=== PATIENT | female | born 1990 | race African-American/Black ===

== ENCOUNTER 2019-08-14 14:17 | Emergency (ER) | payer OTHER, SELFPAY ==
[2019-08-14 14:34] VITALS: BP 131/76; PULSE 78; RESP 16; TEMP 36.7; O2SAT 98
--- NOTE | 2019-08-14 14:49 | ED.SKABFB ---
HPI - Skin/Abscess/Foreign Bdy General Chief complaint: Unspecified Stated complaint: Swollen/L/ear/neck Time Seen by Provider: 08/14/19 14:42 Source: patient and RN notes reviewed Mode of arrival: ambulatory Limitations: no limitations History of Present Illness HPI narrative: Patient presents today complaining of a 2-day history of left ear swelling and pain. Reports it started in the upper portion of the external ear and has spread downward. Her pain is spread to the neck as well. She currently rates her pain 5/10 and has been taking Benadryl without relief. Denies fever or known injury to the ear. Related Data Home Medications Medication Instructions Recorded Confirmed albuterol sulfate 2 puff INHALATION QID PRN 08/14/19 08/14/19 Allergies Allergy/AdvReac Type Severity Reaction Status Date / Time tramadol Allergy Unknown Itching Verified 08/14/19 14:40 Review of Systems Review of Systems: Narrative: CONSTITUTIONAL: Denies body aches, fever, chills, or sweats. EYES: Denies visual changes, redness, or discharge. ENT: Denies rhinorrhea, congestion, sore throat. + Left external ear redness, swelling, pain CARDIOVASCULAR: Denies chest pain, palpitations, or edema. RESPIRATORY: Denies cough or dyspnea. GASTROINTESTINAL: Denies abdominal pain, nausea, vomiting, or diarrhea. GENITOURINARY: Denies dysuria or hematuria. SKIN: Denies rash, itching, or wounds. MUSCULOSKELETAL: Denies back pain, joint pain, or myalgia. NEUROLOGIC: Denies headache, numbness, tingling, or weakness. PSYCH: Denies depression or anxiety. [facility] Family History Family History (Updated 02/14/14 @ 07:13 by DOCTOR UNKNOWN) Grandparent Hypertension Cerebrovascular accident Family history of Alzheimer's disease Family history of coronary artery disease Diabetes mellitus Father Hypertension Patient's father is Social History Social History Smoking status: Never smoker Second hand tobacco smoke exposure: No Alcohol intake: current Gender identity (if verbalized by the patient): Female Comments At time of signature, I have reviewed and agree with nursing past medical, surgical, social and family history unless otherwise noted. Please see nursing chart for further information. There is no relevant family history pertinent to the presenting complaint Exam Narrative: Exam Narrative: GENERAL: Well-appearing, well-nourished, and in no acute distress. HEAD: Normocephalic, atraumatic. EYES: EOMI. No redness or drainage. Conjunctivae normal. ENT: Mucous membranes pink and moist. Nares clear. No rhinorrhea. TMs normal bilaterally. Left external ear is mildly erythematous and moderately edematous and is tender to palpation. She has some swelling of the left anterior and posterior cervical chains. No facial swelling noted. Throat normal. Uvula midline. NECK: Normal AROM. Supple. No lymphadenopathy. CHEST: No respiratory distress. EXTREMITIES: Normal range of motion. No edema. SKIN: Warm, dry, no rash. NEURO: No focal deficits. Alert and oriented x3. Gait steady. PSYCH: Normal affect. No signs of depression or anxiety. Course Vital Signs Vital signs: Vital Signs Temperature 98.1 F 08/14/19 14:34 Pulse Rate 78 08/14/19 14:34 Respiratory Rate 16 08/14/19 14:34 Blood Pressure 131/76 08/14/19 14:34 Pulse Oximetry 98 08/14/19 14:34 Temperature 98.1 F 08/14/19 14:34 Pulse Rate 78 08/14/19 14:34 Respiratory Rate 16 08/14/19 14:34 Blood Pressure 131/76 08/14/19 14:34 Pulse Oximetry 98 08/14/19 14:34 Reviewed. Pt has been instructed to follow up with her PCP regarding her elevated blood pressure today. MDM - Skin/Abscess/Foreign Bdy Differential Diagnosis Differential diagnosis: Likely abscess of skin or subcutaneous tissue, cellulitis, eczema, impetigo and contact dermatitis Critical Care Time Critical Care Time Critical Care Time: No Discharge Plan Disch
== END 2019-08-14 14:58 | disposition home or self-care (01) ==
PROVIDERS: Emergency Provider Nurse Practitioner; PCP Family Medicine
DX: H60.12 Cellulitis of left external ear (principal); J45.909 Unspecified asthma, uncomplicated
CPT/HCPCS: 99213; G0463

== ENCOUNTER 2020-01-02 16:00 | Emergency (ER) | payer OTHER, SELFPAY ==
--- NOTE | ~2020-01-02 | XR_ITS ---
XR shoulder RT min 2V DATE: 01/02/2020 16:36 INDICATION: Right shoulder pain TECHNIQUE: Neer and AP views COMPARISON: None FINDINGS: No fracture or dislocation, periosteal reaction or bone destruction or abnormal soft tissue calcification. IMPRESSION: Negative right shoulder Reviewed, dictated and finalized at location A. IMPRESSION: Negative right shoulder
[2020-01-02 16:09] VITALS: BP 127/81; PULSE 124; RESP 16; TEMP 36.5; O2SAT 98
--- NOTE | 2020-01-02 16:12 | ED.GENADULT ---
HPI - General Adult General Chief complaint: Extremity Injury, Upper Stated complaint: Shoulder injury Time Seen by Provider: 01/02/20 16:12 Source: patient and RN notes reviewed Mode of arrival: ambulatory Limitations: no limitations History of Present Illness HPI narrative: 29-year-old -Surinamese female presents with complaints of diffused right shoulder pain and intermittent radiating pain in RT hand for the past 4 days. Lobitorosyn, last on 01/01/20 @ 23:00 with little relief. Kira says she was putting on a shirt when her RT shoulder came out of socket and she put it back. Upon going to bed and rolling onto RT shoulder she felt a movement as if it went further into the socket. History of Unspecified Joint Disorder, received PT in the past. She continues to have pain. Denies numbness or tingling. No known injury. Hurts with movement of shoulder. Intermittent radiating pain to RT hand. No loss of mobility. No swelling. Exacerbating factor is movement. Some relieving factor is rest and pain medication. The dominant hand is the RIGHT HAND. LMP, 12/30/19. Remains active. The patient reports she have not been diagnosed with COVID-19. The patient reports she is not waiting for the results of a COVID-19 lab test. The patient reports she do not have fever, chills, weakness, fatigue, or myalgia. The patient reports she do not have a new or worsening cough or shortness of breath. Denies chest pain. The patient reports she do not have any rhinorrhea, congestion, sore throat, nausea, vomiting, abdominal pain, and diarrhea. Tolerating po intake well. Denies recent traveling. Denies concerns for COVID-19 or exposures been home with limited outdoor exposure except for essential household needs and return home. At this time, patient is not suspected of having COVID-19. Some parts of this dictation were generated by voice recognition software and may contain typographical and/or grammatical inaccuracies. Related Data Home Medications Medication Instructions Recorded Confirmed albuterol sulfate [Proventil HFA] 2 puff INHALATION Q4-6H PRN 01/02/20 01/02/20 Allergies Allergy/AdvReac Type Severity Reaction Status Date / Time tramadol Allergy Unknown Itching Verified 01/02/20 16:01 Review of Systems Review of Systems: Narrative: CONSTITUTIONAL: Denies fever, chills, sweats. EYES: Denies visual changes, redness, discharge. ENT: Denies rhinorrhea, congestion, sore throat, otalgia. CARDIOVASCULAR: Denies chest pain, palpitations, edema. RESPIRATORY: Denies dyspnea, wheezing, cough. GASTROINTESTINAL: Denies abdominal pain, nausea, vomiting, diarrhea. GENITOURINARY: Denies dysuria, hematuria, abnormal discharge. SKIN: Denies rash or itching. MUSCULOSKELETAL: Denies acute back pain or myalgia. Complains of diffused right shoulder pain and intermittent pain in RT hand. NEUROLOGIC: Denies numbness or focal weakness. PSYCHIATRIC: Denies anxiety or depression. All other systems reviewed & are unremarkable except as noted in HPI and below. [facility] Past Medical History Medical History (Updated 01/02/20 @ 16:48 by GARETH Castillo) Asthma Joint disorder, unspecified Surgical History Surgical History (Updated 01/02/20 @ 16:37 by GARETH Castillo) No significant past surgical history Family History Family History Grandparent Hypertension Cerebrovascular accident Family history of Alzheimer's disease Family history of coronary artery disease Diabetes mellitus Father Hypertension Patient's father is Social History Social History (Updated 01/02/20 @ 16:38 by GARETH Castillo) Smoking status: Never smoker Second hand tobacco smoke exposure: No Alcohol intake: current Substance use: current Substance use type: marijuana Living arrangements: with family Occupation/Education: unemployed Gender identity (if verbal
[2020-01-02] MEDS: KETOROLAC (*BKC) 60 MG/2 ML VIAL IM (16:22)
== END 2020-01-02 16:55 | disposition home or self-care (01) ==
PROVIDERS: Emergency Provider Nurse Practitioner Family
DX: M25.511 Pain in right shoulder (principal); J45.909 Unspecified asthma, uncomplicated; M25.9 Joint disorder, unspecified
CPT/HCPCS: 73030; 96372; 99213; G0463; J1885

== ENCOUNTER 2021-12-29 15:45 | Emergency (ER) | payer OTHER, MEDICAID, SELFPAY ==
--- NOTE | ~2021-12-29 | XR_ITS ---
EXAMINATION: XR chest 2V 12/29/2021 17:15 INDICATION: Weakness and dyspnea PROCEDURE: PA and lateral views the chest COMPARISON: Comparison to multiple prior studies sequentially, with oldest reviewed study dated 03/22. FINDINGS: The lungs are clear. The cardiomediastinal silhouette is within normal limits. There are no pleural effusions. There is no pneumothorax suspected. IMPRESSION: 1: NO ACUTE CARDIOPULMONARY DISEASE. Reviewed, dictated and finalized at location A.
[2021-12-29 15:48] VITALS: BP 143/100; PULSE 83; RESP 18; TEMP 36.7; O2SAT 99
[2021-12-29 16:13] LABS: Basophils Percent Auto 0.5 % (0.2-1.2); Eosinophils Absolute Auto 0.1 K/mm3 (0-0.3); Eosinophils Percent Auto 1.4 % (0-4.4); Hematocrit 37.3 % (37.0-47.0); Hemoglobin 11.6 g/dL (12.0-15.0); Immature Granulocyte Absolute 0.02 K/mm3 (0.00-0.031); Immature Granulocyte Percent A 0.3 % (0-0.5); Lymphocytes Percent Auto 40.7 % (18.3-44.2); Mean Corpuscular HGB Conc 31.1 g/dl (32-36); Mean Corpuscular Hemoglobin 26.1 pg (26-34); Mean Corpuscular Volume 83.8 fl (80-100); Mean Platelet Volume 10.6 fl (7.4-10.4); Monocytes Absolute Auto 0.5 K/mm3 (0.1-0.6); Neutrophils Absolute Auto 2.9 K/mm3 (1.3-6.7); Neutrophils Percent Auto 49.1 % (45.5-73.1); Platelet Count Result 344 k/mm3 (150-375); Red Blood Count 4.45 M/mm3 (4.2-5.4); Red Cell Distribution Width 14.6 % (11.5-14.5); White Blood Count 5.9 K/mm3 (4.5-10.0)
[2021-12-29 16:23] LABS: Alanine Aminotransferase 18 U/L (6-35); Albumin Level 3.9 g/dL (3.5-5.1); Alkaline Phosphatase 73 U/L (38-126); Anion Gap 4 mmol/L (8-16); Aspartate Amino Transferase 19 U/L (14-36); Bilirubin,Total 0.1 mg/dL (0.2-1.3); Blood Urea Nitrogen 12 mg/dL (7-17); Calcium 8.6 mg/dL (8.4-10.2); Carbon Dioxide 24 mmol/L (22-30); Chloride 107 mmol/L (98-107); Estimated CRCL calculation 129 ml/min; Estimated Glomerular Filt Rate > 60; Glucose 102 mg/dL (65-110); Potassium 3.9 mmol/L (3.4-5.0); Sodium 135 mmol/L (137-145)
[2021-12-29 16:46] VITALS: BP 135/92; PULSE 86; O2SAT 100
--- NOTE | 2021-12-29 17:04 | ECG_ITS ---
Measurements Intervals [place] Rate: 70 P: 46 CT: 137 QRS: -4 QRSD: 75 T: 11 QT: 379 QTc: 410 Interpretive Statements SINUS RHYTHM WITH SINUS ARRHYTHMIA CONSIDER INFERIOR INFARCT, AGE INDETERMINATE BASELINE ARTIFACT- I, III, AVL ABNORMAL ECG Electronically Signed On 12-29-2021 21:24:02 CDT by Bacilio Wood D.O.
--- NOTE | 2021-12-29 17:08 | ED.WEAKNESS ---
HPI - Weakness General Chief complaint: Weakness Stated complaint: increased weakness and lethargy Time Seen by Provider: 12/29/21 16:45 Source: patient Mode of arrival: ambulatory Limitations: no limitations History of Present Illness HPI Narrative: This is a 31 year old female who presents for evaluation of fatigue. PAtient states she has been having fatigue for 3-4 weeks. She reports her symptoms occur every day to every other day. She is unsure if it is worse during certain part of the day . She states she feel weird . She feels tired and she feels restless as well. She is able to walk. She denies dizziness. She denies chest pain or sob. She does report intermittent palpitations. She also reports her menstrual cycle has been irregular recently but she does have diagnosis of endometriosis and PCOS. She denies head injury. She denies any new medications. Related Data Home Medications Medication Instructions Recorded Confirmed albuterol sulfate 90 mcg/actuation 2 puff inhalation Q4-6H PRN 01/02/20 01/02/20 aerosol inhaler (Proventil HFA) Shortness Of Breath Allergies Allergy/AdvReac Type Severity Reaction Status Date / Time tramadol Allergy Unknown Itching Verified 01/02/20 16:01 Review of Systems Review of Systems: All systems reviewed & are unremarkable except as noted in HPI and below Constitutional: Constitutional: Denies chills, Reports fatigue, Denies fever(s), Reports lethargy, Reports weakness, Denies weight gain and Denies weight loss Eyes: Eyes: Denies change in vision and Denies photophobia ENT: Denies epistaxis and Denies nasal congestion Cardiovascular: Cardiovascular: Denies chest pain, Reports rapid heart rate and Denies radiating jaw, neck or arm pain Respiratory: Respiratory: Denies chest congestion and Denies cough Gastrointestinal: Gastrointestinal: Reports abdominal pain (chronc), Denies nausea and Denies vomiting Genitourinary: Genitourinary: Reports abnormal vaginal bleeding Musculoskeletal: Musculoskeletal: Denies back pain and Denies myalgias Neurologic: Denies dizziness, Denies syncope and Denies focal weakness PMFSH Past Medical History Medical History Asthma Joint disorder, unspecified Surgical History Surgical History No significant past surgical history Family History Family History Grandparent Hypertension Cerebrovascular accident Family history of Alzheimer's disease Family history of coronary artery disease Diabetes mellitus Father Hypertension Patient's father is Social History Social History (Updated 01/02/20 @ 16:38 by GARETH Castillo) Smoking status: Never smoker Second hand tobacco smoke exposure: No Alcohol intake: current Substance use: current Substance use type: marijuana Gender identity (if verbalized by the patient): Female Sexual Orientation (if Verbalized by the Patient): Straight or Heterosexual Exam Narrative: GENERAL: Well-appearing, well-nourished, and in no acute distress. HEAD: Normocephalic, atraumatic EYES: PERRLA and EOMI, conjunctiva clear without discharge EARS: TM's clear bilaterally without erythema or dullness NOSE: Nares clear, no rhinorrhea or epistaxis THROAT:Mucous membranes moist, Oropharynx normal without erythema, exudate, peritonsillar swelling or fluctuance NECK: Supple, without lymphadenopathy or mass RESPIRATORY: No respiratory distress, Airway patent, Respirations non-labored, Clear to auscultation without rales, rhonchi or wheeze HEART: Regular rate and rhythm. No murmur heard. Normal peripheral pulses. ABDOMEN: Soft, nontender, nondistended, normal active bowel sounds. No masses. No rebound or guarding, No organomegaly. EXTREMITIES: No edema, normal strength with full range of mo
[2021-12-29 17:23] LABS: Appearance Urine Clear (Clear); Bilirubin Urine Negative (Negative); Blood Urine 2+ (Negative); Color Urine Yellow (Yellow); Glucose Urine UA Negative (Negative); Ketones Urine Negative (Negative); Leukocyte Esterase Ur Negative LEU/UL (Negative); Nitrate Urine Negative (Negative); Protein Urine Negative (Negative); Urobilinogen Urine 0.2 mg/dL (<2.0); pH Urine 8.5 (5.0-9.0)
[2021-12-29 17:28] LABS: Add Urine Microscopic? YES; Bacteria Urine Trace /hpf; Mucus Urine Rare /lpf; Squamous Epithelial Cell Urine Few /hpf (Few); WBC Urine 0-3 /hpf
[2021-12-29 17:47] LABS: Magnesium 1.9 mg/dL (1.6-2.3)
[2021-12-29 18:05] LABS: Pregnancy On Board Control Positive; Urine Pregnancy Test Negative
[2021-12-29 18:10] VITALS: BP 129/82
[2021-12-29 18:12] VITALS: BP 146/98
[2021-12-29 18:14] VITALS: BP 136/100
[2021-12-29 18:15] LABS: SARS-CoV-2 RNA PCR Negative
[2021-12-29 19:17] VITALS: BP 143/99; PULSE 79; RESP 16
== END 2021-12-29 19:20 | disposition home or self-care (01) ==
PROVIDERS: Emergency Medicine; Emergency Provider General Practice; PCP Internal Medicine
DX: R53.83 Other fatigue (principal); Z20.822 Contact with and (suspected) exposure to COVID-19; J45.909 Unspecified asthma, uncomplicated
CPT/HCPCS: 36415; 71046; 80053; 81001; 81025; 83735; 84443; 85025; 93005; 99283; C9803; U0003; U0005

== ENCOUNTER 2022-04-27 14:29 | Emergency (ER) | payer OTHER, MEDICAID, SELFPAY ==
[2022-04-27 14:45] VITALS: BP 150/76; PULSE 99; RESP 16; TEMP 36.3; O2SAT 100
--- NOTE | 2022-04-27 15:13 | ED.URI ---
HPI - URI/Sore Throat General Chief Complaint: Upper Respiratory Infection Stated Complaint: Sore Throat, Leg Pain on Both Time Seen by Provider: 04/27/22 15:14 Source: patient, RN notes reviewed and old records reviewed Mode of arrival: ambulatory Limitations: no limitations History of Present Illness HPI Narrative: 32-year-old female comes to the [facility] with complaints of a sore throat for 2-3 days. Patient also complains of bilateral leg discomfort and bruising for at least the last month. States she has tried calling her primary care provider and has not gotten a response. Denies any injury. Walks with a normal gait Denies any fevers, chest pain, abdominal pain. Patient states that she took some Tylenol cold and Sinus 1 time. MD elicited complaint: sore throat Onset (ago): day(s) (2) Consistency: constant Treatments prior to arrival: acetaminophen Related Data Allergies Allergy/AdvReac Type Severity Reaction Status Date / Time tramadol Allergy Unknown Itching Verified 04/27/22 14:56 Review of Systems Review of Systems: All systems reviewed & are unremarkable except as noted in HPI and below Constitutional: Constitutional: Reports no additional constitutional complaints, Denies chills and Denies fever(s) Eyes: Eyes: Reports no additional eye complaints ENT: Reports as per HPI and Reports sore throat Cardiovascular: Cardiovascular: Reports no additional cardiovascular complaints Respiratory: Respiratory: Reports no additional respiratory complaints Gastrointestinal: Gastrointestinal: Reports no additional gastrointestinal complaints Musculoskeletal: Musculoskeletal: Reports as per HPI Integumentary/Breasts: Skin/Breast: Reports system reviewed and no additional complaints, except as docu Neurologic: Reports system reviewed and no additional complaints, except as documented Psychiatric: Psychiatric: Reports no additional psychiatric complaints Allergic/Immunologic: Allergic/Immunologic: Reports no additional allergic/immunologic complaints [facility] Past Medical History Medical History Asthma Joint disorder, unspecified Surgical History Surgical History No significant past surgical history Family History Family History Grandparent Hypertension Cerebrovascular accident Family history of Alzheimer's disease Family history of coronary artery disease Diabetes mellitus Father Hypertension Patient's father is Social History Social History Smoking status: Never smoker Second hand tobacco smoke exposure: No Alcohol intake: current Substance use: current Substance use type: marijuana Gender identity (if verbalized by the patient): Female Sexual Orientation (if Verbalized by the Patient): Straight or Heterosexual Comments At the time of my signature, I reviewed and agree with the nursing past medical, surgical, social, and family history. There is no relevant family history pertinent to the patient complaint. Exam Const: General: healthy appearing, comfortable, no acute distress, well developed, alert and well nourished Nutritional Appearance: well nourished and obese Orientation/consciousness: patient oriented x3 Limitations: no limitations HENMT: Head: normal to inspection Ears: external ears normal, TM's normal bilaterally and EAC's normal Face/Nose/Sinus: Normal external nose present and Normal nares present Face and sinus: normal facial exam Mouth: Yes Normal oral and palatal mucosa present, Yes lip normal and Yes moist mucous membranes Teeth and gingiva: dentition normal Throat: posterior oropharynx normal, tonsils normal, uvula midline, postnasal drainage and no uvular edema Eyes: General: appearance normal, both eyes and all related str
== END 2022-04-27 15:55 | disposition home or self-care (01) ==
PROVIDERS: Emergency Provider Nurse Practitioner; PCP Internal Medicine
DX: J02.9 Acute pharyngitis, unspecified (principal); J45.909 Unspecified asthma, uncomplicated; F12.90 Cannabis use, unspecified, uncomplicated
CPT/HCPCS: 87081; 87880; 99213; G0463

== ENCOUNTER 2022-04-29 18:06 | Emergency (ER) | payer OTHER, MEDICAID, SELFPAY ==
[2022-04-29] VITALS (12 sets, daily range): BP systolic 125–138; BP diastolic 81–86; PULSE 72–102; RESP 11–21; TEMP 37; O2SAT 99–100
[2022-04-29 18:36] LABS: Basophils Percent Auto 0.3 % (0.2-1.2); Eosinophils Absolute Auto 0.1 K/mm3 (0-0.3); Hematocrit 37.5 % (37.0-47.0); Hemoglobin 11.7 g/dL (12.0-15.0); Immature Granulocyte Absolute 0.01 K/mm3 (0.00-0.031); Immature Granulocyte Percent A 0.2 % (0-0.5); Lymphocytes Percent Auto 51.7 % (18.3-44.2); Mean Corpuscular HGB Conc 31.2 g/dl (32-36); Mean Corpuscular Hemoglobin 26.5 pg (26-34); Mean Corpuscular Volume 84.8 fl (80-100); Mean Platelet Volume 11.1 fl (7.4-10.4); Monocytes Absolute Auto 0.5 K/mm3 (0.1-0.6); Monocytes Percent Auto 8.4 % (2.6-8.5); Neutrophils Absolute Auto 2.2 K/mm3 (1.3-6.7); Neutrophils Percent Auto 38.4 % (45.5-73.1); Platelet Count Result 354 k/mm3 (150-375); Red Blood Count 4.42 M/mm3 (4.2-5.4); Red Cell Distribution Width 13.9 % (11.5-14.5); White Blood Count 5.8 K/mm3 (4.5-10.0)
[2022-04-29 18:46] LABS: Anion Gap 10 mmol/L (8-16); Blood Urea Nitrogen 9 mg/dL (7-17); Calcium 8.9 mg/dL (8.4-10.2); Carbon Dioxide 25 mmol/L (22-30); Chloride 103 mmol/L (98-107); Estimated CRCL calculation 154 ml/min; Estimated Glomerular Filt Rate > 60; Glucose 118 mg/dL (65-110); Potassium 3.5 mmol/L (3.4-5.0); Sodium 138 mmol/L (137-145)
[2022-04-29 18:52] LABS: INR 1.1; Partial Thromboplastin Time 30.5 SECONDS (22.3-36.8); Prothrombin Time 13.7 Seconds (11.1-14.7)
[2022-04-29 19:49] LABS: Immature Reticulocyte Fraction 13.6 % (3.0-15.9); Reticulocyte Hemoglobin Conten 30.2 pg (28.2-35.7); Reticulocyte Percent 1.13 % (0.7-4.3); Reticulocytes Absolute 0.05 B/L (32.2-175.7)
[2022-04-29 20:22] LABS: Iron 85 ug/dL (37-170)
--- NOTE | 2022-04-29 20:22 | ED.GENADULT ---
HPI - General Adult General Chief complaint: Unspecified Stated complaint: random bruising Time Seen by Provider: 04/29/22 19:29 History of Present Illness HPI narrative: 32-year-old female history of iron deficiency anemia presents to the emergency room for multiple complaints. Patient states she has been experiencing bilateral lower extremity discomfort for several weeks, taking NSAIDs with no relief of symptoms. Patient also complaining of unexplained painful bruising, noted to her back, lower extremities and upper extremities. Patient denies any known injury or trauma. Patient denies any shortness of breath difficulty breathing, chest pain or abdominal pain. Denies any fevers. No known history of autoimmune disorders in the family. Patient does relate the distant family history of sickle cell. Related Data Allergies Allergy/AdvReac Type Severity Reaction Status Date / Time tramadol Allergy Unknown Itching Verified 04/29/22 18:24 Review of Systems Review of Systems: CONSTITUTIONAL: Denies fever, chills, or sweats. EYES: Denies visual changes, redness, or discharge. ENT: Denies rhinorrhea, congestion, sore throat, or otalgia. CARDIOVASCULAR: Denies chest pain, palpitations, or edema. RESPIRATORY: Denies cough or dyspnea. GASTROINTESTINAL: Denies abdominal pain, nausea, vomiting, or diarrhea. GENITOURINARY: Denies dysuria or hematuria. SKIN: Reports bruising MUSCULOSKELETAL: Lower extremity myalgias NEUROLOGIC: Denies headache, numbness, dizziness, or weakness. PSYCHIATRIC: Denies anxiety or depression. [facility]END[facility] TO [facility] Past Medical History Medical History Asthma Joint disorder, unspecified Surgical History Surgical History No significant past surgical history Family History Family History Grandparent Hypertension Cerebrovascular accident Family history of Alzheimer's disease Family history of coronary artery disease Diabetes mellitus Father Hypertension Patient's father is Social History Social History Smoking status: Never smoker Second hand tobacco smoke exposure: No Alcohol intake: current Substance use: current Substance use type: marijuana Gender identity (if verbalized by the patient): Female Sexual Orientation (if Verbalized by the Patient): Straight or Heterosexual Exam Narrative: GENERAL: Well-appearing, well-nourished, no physical limitations, and in no acute distress. HEAD: Normocephalic, atraumatic. EYES: Conjunctivae normal, PERRLA and EOMI. NECK: Supple. No adenopathy or masses. CHEST: Clear to auscultation. No respiratory distress. No wheezes rales or rhonchi. HEART: Regular rate and rhythm. No murmur heard. Normal peripheral pulses. ABDOMEN: Soft, nontender, nondistended, normal active bowel sounds. BACK: No cervical/thoracic/lumbar tenderness, step-offs, bony abnormality; FROM EXTREMITIES: Normal range of motion. No edema. No clubbing or cyanosis SKIN: Ecchymotic areas noted to the left anterior lower extremity, left upper extremity, mid thoracic back in different sizes shapes. NEURO: No focal deficits. Alert and oriented x3. MAEW. CN's II-XI intact bilaterally, normal gait PSYCH: Cooperative. Normal mood and affect. Course Vital Signs Vital signs: Vital Signs Temperature 37.0 C 04/29/22 18:21 Pulse Rate 102 H 04/29/22 18:21 Respiratory Rate 18 04/29/22 18:21 Blood Pressure 138/86 04/29/22 18:21 Pulse Oximetry 99 04/29/22 18:21 Temperature 37.0 C 04/29/22 18:21 Pulse Rate 102 H 04/29/22 18:21 Respiratory Rate 20 04/29/22 19:32 Blood Pressure 138/86 04/29/22 18:21 Pulse Oximetry 99 04/29/22 18:21 Medical Decision Making Vital Signs Vital Signs: Vital Signs Temperature 37.0 C
[2022-04-29 20:25] LABS: D Dimer 0.28 ug/mL (<0.48)
[2022-04-29 20:31] LABS: Percent Iron Saturation 22 % (20-50)
[2022-04-29 20:45] LABS: CRP < 0.5 mg/dL (<1.0)
[2022-04-29 21:16] LABS: Erythrocyte Sedimentation Rate 17 mm/hr (0-20)
== END 2022-04-29 22:04 | disposition home or self-care (01) ==
PROVIDERS: Emergency Medicine; Emergency Provider Nurse Practitioner Family; PCP Internal Medicine
DX: M79.81 Nontraumatic hematoma of soft tissue (principal); J45.909 Unspecified asthma, uncomplicated; D50.9 Iron deficiency anemia, unspecified
CPT/HCPCS: 36415; 80048; 83540; 83550; 84443; 85025; 85046; 85380; 85610; 85652; 85730; 86140; 99283

== ENCOUNTER 2023-02-11 01:10 | Day surgery (SDC) | payer OTHER, MEDICAID, SELFPAY ==
[2023-02-08 15:18] VITALS: BMI 46.0
--- NOTE | 2023-02-08 15:23 | PC.NURSE ---
Report to the Outpatient Waiting Room, entrance under the green pavilion located off [facility], at time 1000 on date 02/11/23. Planned Procedure Time: 1200. Time changes happen often and if your time is changed the preop area will call you the afternoon before. - You and your visitor will be asked to self-screen and do not enter if you have any COVID symptoms. - A mask is optional within the hospital at this time. Patients may have clear liquids (water, carbonated beverages, clear teas, apple juice) until 3 hours prior to surgery with a maximum of 20 ounces. - No food from midnight until time of surgery Take the following medications with a SIP of water the morning of surgery: INHALER IF NEEDED DO NOT STOP ANY OF YOUR OTHER PRESCRIPTION MEDICATIONS PRIOR TO SURGERY ?EXCEPT THE FOLLOWING Medications to discontinue per physician: VITAMINS/SUPPLEMENTS Date to take last dose: NO MORE UNTIL AFTER SURGERY Please no make-up, nail yoruba, hairspray, perfume, deodorant, or body powder the day of surgery. No jewelry (including any body piercings) or valuables the day of surgery, leave them at home. Please take a shower or bath the night before, or the morning of, surgery with an antibacterial soap. Wear comfortable, loose fitting clothing. - Jewelry must be removed prior to entering the operating room. Rings and piercings that are not removed may be cut off. - The hospital will not accept responsibility for valuables. - Please leave all valuables, including medications, at home the day of surgery. If you are going home after surgery, a licensed water taxi driver must drive you home. - NO public transportation without another adult if you receive anesthesia. - We recommend that an adult stay with you for 24 hours following discharge. - We also recommend that you do not drive, make important decision, drink alcoholic beverages, or take any drugs that were not prescribed by your health care provider for at least 24 hours after your discharge time. Follow any additional instructions given to you from your surgeon. If you or anyone in your household have experienced Covid symptoms in the past week, please notify your surgeon or the nurse liaison at the phone number below for possible testing. Telephone instructions given to PT - ALBA BROOKS and asked if any additional questions and then verbalized understanding. Patient advised to call surgeon office or pre surgery nurse liaison [phone] if any additional questions.
[2023-02-11] VITALS (12 sets, daily range): BP systolic 121–144; BP diastolic 66–102; PULSE 74–99; RESP 8–20; TEMP 36.3; O2SAT 96–100
--- NOTE | 2023-02-11 08:44 | PM.IMHP ---
H&P: HPI History of Present Illness Date/Time: 02/11/23 08:44 Chief Complaint: Suspected endometrial polyp and hydrosalpinx Narrative: Patient with a history of secondary infertility with [facility] evaluation showing possible endometrial polyp on sonohystogram and possible dilated right fallopian tube on HSG. She is scheduled for IVF in the fall and KEN recommends removal of polyp and hydrosalpinx before IVF transfer. She has had preconception MFM consultation due to history of incompetent cervix. Review of Systems Review of Systems: All systems reviewed & are unremarkable except as noted in HPI and below Constitutional: Constitutional: Reports no additional constitutional complaints and Denies headache(s) Eyes: Eyes: Denies spots in vision ENT: Reports system reviewed and no additional complaints, except as documented and Denies headache(s) Cardiovascular: Cardiovascular: Denies chest pain and Denies dyspnea Respiratory: Respiratory: Denies dyspnea Gastrointestinal: Gastrointestinal: Reports no additional gastrointestinal complaints Genitourinary: Genitourinary: Reports amenorrhea Musculoskeletal: Musculoskeletal: Reports no additional musculoskeletal complaints Integumentary/Breasts: Skin/Breast: Denies breast mass and Denies rash Neurologic: Denies headache(s) Psychiatric: Psychiatric: Reports no additional psychiatric complaints PMFSH Past Medical History Medical History Anemia Asthma History of gonorrhea Joint disorder, unspecified Surgical History Surgical History S/P dilation and curettage Family History Family History Grandparent Hypertension Cerebrovascular accident Family history of Alzheimer's disease Family history of coronary artery disease Diabetes mellitus Father Hypertension Patient's father is Other Heart disease Social History Social History Smoking status: Never smoker Second hand tobacco smoke exposure: No Alcohol intake: current Alcohol use details: RARE Substance use: current Substance use type: marijuana Lack of Transportation: No Lack of Food: Never True Current Housing: I Have Housing Concerned About Future Housing: No Difficulty Paying Gas/Electric Bills: No Difficulty Paying for Meds: No Currently Unemployed: No Education: Trade/Vocational Certificate Difficulty w/ Childcare or Family Care: No Living arrangements: with family Occupation/Education: unemployed Gender identity (if verbalized by the patient): Female Sexual Orientation (if Verbalized by the Patient): Straight or Heterosexual Spiritual care concerns: No Meds Home Medications and Allergies Home Medications Medication Instructions Recorded Confirmed Type prenat.vits,mame,xxy-zupr-yynnh 1 tablet PO DAILY 11/11/22 02/08/23 History ferrous sulfate 325 mg (65 mg 325 mg PO DAILY 02/08/23 02/08/23 History iron) tablet (Iron (ferrous sulfate)) Allergies Allergy/AdvReac Type Severity Reaction Status Date / Time tramadol Allergy Unknown Hives Verified 02/08/23 15:17 Exam Const: General: no acute distress Eyes: General: appearance normal, both eyes and all related structures Resp: Effort & Inspection: normal respiratory effort Cardio: Rate: regular rate GI: Other: Gravid no fundal tenderness no right upper quadrant pain Skin: General skin exam: no rashes or lesions noted Neuro: Cognition (Neuro): normal cognition Extrem: General: normal to inspection Psych: Mental Status: mental status grossly normal Assessment and Plan Assessment and plan (1) Endometrial polyp: Code(s): N84.0 - Polyp of corpus uteri Status: Acute Assessment and Plan: Will proceed with hyst
--- NOTE | 2023-02-11 10:12 | WPDHPUPDATE1 ---
History and Physical Update Update Date/Time: 02/11/23 10:12 History and Physical has been reviewed, including an updated exam of the patient. There are NO changes in the patient's condition. Risks, benefits, and alternatives have been discussed and questions answered. Patient agrees to proceed with procedure. Will proceed with diagnostic laparoscopy, chromotubation, possible removal of right or left fallopian tube, diagnositc hysteroscopy possible removal of lesion if present.
--- NOTE | 2023-02-11 10:55 | P.PNAN_ITS ---
Anes - Initial Pre Proc Eval Procedure: Operation Date: 02/11/23 12:00 Proposed Procedures p Diagnostic Laparoscopy with Chromopertubation, Right Salpingectomy, - Huber Rodriguez MD s Hysteroscopy Dilation and Curettage with Removal of Possible Polyp - Huber Rodriguez MD Date/Time: 02/11/23 10:55 Surgeon: Huber Rodriguez MD Pre Op Diagnosis: infertility Patient Data Age: 33 Gender: F Height: 1.56 m Weight: 112.5 kg Allergies Allergy/AdvReac Type Severity Reaction Status Date / Time tramadol Allergy Unknown Hives Verified 02/08/23 15:17 Home Medications Medication Instructions Recorded Confirmed Type prenat.vits,mame,bhe-iuoj-gleao 1 tablet PO DAILY 11/11/22 02/08/23 History ferrous sulfate 325 mg (65 mg 325 mg PO DAILY 02/08/23 02/08/23 History iron) tablet (Iron (ferrous sulfate)) Patient hx anesthesia problems: none Family hx anesthesia problems: none Results Review: All pre-operative results and documents have been reviewed as part of the pre- operative evaluation. [facility], [facility] Past Medical History Medical History Anemia Asthma History of gonorrhea Joint disorder, unspecified Surgical History Surgical History S/P dilation and curettage Family History Family History Grandparent Hypertension Cerebrovascular accident Family history of Alzheimer's disease Family history of coronary artery disease Diabetes mellitus Father Hypertension Patient's father is Other Heart disease Social History Social History Smoking status: Never smoker Second hand tobacco smoke exposure: No Alcohol intake: current Alcohol use details: RARE Substance use: current Substance use type: marijuana Lack of Transportation: No Lack of Food: Never True Current Housing: I Have Housing Concerned About Future Housing: No Difficulty Paying Gas/Electric Bills: No Difficulty Paying for Meds: No Currently Unemployed: No Education: Trade/Vocational Certificate Difficulty w/ Childcare or Family Care: No Living arrangements: with family Occupation/Education: unemployed Gender identity (if verbalized by the patient): Female Sexual Orientation (if Verbalized by the Patient): Straight or Heterosexual Spiritual care concerns: No Anes - Eval Final PreProcedure Day of Procedure 02/11/23 10:55 Patient weight: morbidly obese Heart: regular rate and rhythm Lungs: clear to auscultation Airway: Mallampati scale class 1 Neurological: alert and oriented Last oral intake: >/= 8 hours ASA classification: III Emergent: no Anesthetic plan: proceed Anesthesia type and monitoring: general ETT and standard monitoring Results Review: All pre-operative results and documents have been reviewed as part of the pre- operative evaluation. Informed Consent: The patient's anesthetic plan and its attendant risks and benefits were discussed with the patient/family/POA. Questions were solicited and answers provided to the satisfaction of the patient/family/POA.
[2023-02-11] MEDS: LACTATED RINGERS 1,000 ML 30 ML IV CONT ×2 (11:00→13:16)
[2023-02-11] MEDS: ACETAMINOPHEN 500 MG TABLET 1000 MG PO (11:11)
[2023-02-11] MEDS: KETOROLAC 15 MG/ML VIAL (*BKC) IV PUSH (11:12)
[2023-02-11 11:14] LABS: Hematocrit 39.7 % (37.0-47.0); Hemoglobin 12.5 g/dL (12.0-15.0)
--- NOTE | 2023-02-11 13:19 | PM.OP ---
Procedure Note - Brief Procedure Note - Brief Date of procedure: 02/11/23 infertility, abnormal endometrial cavity, possible hydrosalpinx Post-op diagnosis: Same Procedure performed: Diagnostic laparoscopy Right salpingectomy Removal peritoneal cyst Diagnostic hysteroscopy. Aveta removal of filmy tissue in cavity. Dilation and curretage. Surgeon: Huber Rodriguez MD Estimated blood loss (mL): 5 Pathology: Yes (1. right fallopian tube 2. Peritoneal cyst 3. Endometrial curretings with aveta shavings.) Complications: No immediate complications Condition: Stable Disposition: Same day
[2023-02-11] MEDS: fentaNYL CITRATE INJ (*CRX) 100 MCG/2 ML VIAL 25 MCG IV PUSH ×5 (13:55→14:43)
[2023-02-11] MEDS: ONDANSETRON INJ 4 MG/2 ML VIAL IV PUSH (14:23)
[2023-02-11] MEDS: diphenhydrAMINE HCl INJ 50 MG/ML VIAL 25 MG IV PUSH (14:38)
[2023-02-11] MEDS: oxyCODONE HCL (*CRX) 5 MG TAB IR PO (15:30)
--- NOTE | 2023-02-12 09:31 | P.OP_ITS ---
Procedure Note - Detailed Date of Procedure 02/12/23 Pre-op Diagnosis infertility Abnormal ultrasound of uterine cavity Post-op Diagnosis Same Procedure Performed Diagnostic laparoscopy. Chromotubation. Right salpingectomy. Removal of peritoneal cyst. Diagnostic hysteroscopy. Aveta removal of tissue from uterine cavity. Dilation and curretage. Surgeon Huber Rodriguez MD Anesthesia General Indications Patient with secondary infertility with evaluation showing possible lesion in uterine cavity and blocked right fallopian tube. Findings The uterus normal appearing. Both fallopian tubes mildly tortuous. Both ovaries normal. Flow through left fallopian tube, no flow through right fallopian tube. Multiple thin walled non attached cyst in the cul de sac removed. Appeared consistent with phlegon. Clear fluid noted. The uterus was sound to 9 cm. There was thin proliferative filmy tissue in cavity which was removed with Aveta and underneath was normal appearing proliferative endometrial tissue and normal appearing ostia bilaterally. Moderate amount of proliferative tissue removed at curretage. Description of Procedure After informed consent was obtained she was taken to OR. General endotracheal anesthesia was performed. She was prepped and draped in sterile fashion. Attention was turned to vagina. Speculum inserted. Single tooth tenaculum placed on anterior lip of cervix. [place] uterine manipulator placed into cervical canal. Attention turned to abdomen. Incision made at umbilicus. Marcaine injected subcutaneously prior to incision. Veress needle inserted. Confirmation into abdomen obtained with free flow of fluid and normal peritoneal pressures. A 5 mm port inserted under laparoscopic visualization. She was placed in trendelenburg position. Attention turned to left side of abdomen and port inserted. Approximately 100cc of sterile saline with Methylene blue was injected in tubing in acorn manipulator. Flow was readily seen coming from the end of the left fallopian tube. The tube was mildly tortuous. No flow from the right tube even when occluding the left. It appeared to stop at the interstitial portion of right fallopian tube. The right ligature was then used to remove the right fallopian tube. In the cul de sac there were several free floating fluid filled cyst. They were removed. Clear fluid noted in it as it ruptured when removing through port. She was taken out of trendelenburg. Pneumoperitoneum released. Ports removed. Incision closed with 4.0 vicryl. Attention was turned to the vagina. Manipulator removed. The hysteroscope was inserted and filmy adhesions similar to the cyst adams in cul de sac was visualized. This tissue was removed with the aveta. Once it was removed then normal appearing proliferative tissue was observed. Currettage was performed. Moderate tissue obtained. Tenaculum removed. Hemostasis noted. She was extubated in OR. Sponge count correct. She was taken to recovery room in stable condition. Estimated Blood Loss 5 Drains No Packing No Pathology Yes (Right fallopian tube. 2. Peritoneal cyst wall. 3 Aveta shavings 4. endometrial curretings.) Complications No immediate complications Condition Stable Disposition Same day [facility] Billing Surgery - Charge Forward: Surgery Billing
== END 2023-02-11 16:15 | disposition home or self-care (01) ==
PROVIDERS: Anesthesiology; PCP Internal Medicine; Visit Provider Obstetrics & Gynecology
PROC: (CPT 49320; principal; 2023-02-11 12:00)
PROC: 0U5B8ZZ Destruction of Endometrium, Via Natural or Artificial Opening Endoscopic (ICD-10-PCS; CPT 58563; 2023-02-11 12:00)
DX: N97.1 Female infertility of tubal origin (principal); K66.8 Other specified disorders of peritoneum; N70.11 Chronic salpingitis; D64.9 Anemia, unspecified; Z82.49 Family history of ischemic heart disease and other diseases of the circulatory system; F12.90 Cannabis use, unspecified, uncomplicated; E66.01 Morbid (severe) obesity due to excess calories; Z68.42 Body mass index [BMI] 45.0-49.9, adult
CPT/HCPCS: 58558; 58662; 58661; 36415; 85014; 85018; 88302; 88305; A9270; J1200; J1885; J2250; J2405; J3010; J7120

== ENCOUNTER 2023-03-04 14:11 | Emergency (ER) | payer OTHER, MEDICAID, SELFPAY ==
[2023-03-04 14:15] VITALS: BP 141/95; PULSE 106; RESP 20; TEMP 36.7; O2SAT 100
--- NOTE | 2023-03-04 14:34 | ED.URI ---
HPI - URI/Sore Throat General Chief Complaint: Upper Respiratory Infection Stated Complaint: headache,body aches,vomiting Time Seen by Provider: 03/04/23 14:39 Source: patient and RN notes reviewed Mode of arrival: ambulatory Limitations: no limitations History of Present Illness HPI Narrative: 33-year-old female presents with concern for 8 day history of sore throat, headache, sinus congestion, drainage, cough. Reports symptoms worsen over the last 3 days. She reports she has taken [id number] medications without relief. She reports she home vomited overnight MD elicited complaint: cough and sore throat Related Data Home Medications Medication Instructions Recorded Confirmed prenat.vits,mame,xrp-trvf-mvnab 1 tablet PO DAILY 11/11/22 03/04/23 ferrous sulfate 325 mg (65 mg 325 mg PO DAILY 02/08/23 03/04/23 iron) tablet (Iron (ferrous sulfate)) Allergies Allergy/AdvReac Type Severity Reaction Status Date / Time tramadol Allergy Unknown Hives Verified 03/04/23 14:32 Review of Systems Review of Systems: CONSTITUTIONAL: Reports malaise EYES: Denies visual changes, redness, or discharge. ENT: Reports rhinorrhea, congestion, sinus pain, otalgia and sore throat. CARDIOVASCULAR: Denies chest pain, palpitations, or edema. RESPIRATORY: Reports cough. Denies dyspnea. GASTROINTESTINAL: Denies abdominal pain, nausea, vomiting, diarrhea SKIN: Denies rash or itching. MUSCULOSKELETAL: Reports myalgia. NEUROLOGIC: Reports headache. All systems reviewed & are unremarkable except as noted in HPI and below PMFSH Past Medical History Medical History Anemia Asthma History of gonorrhea Joint disorder, unspecified Surgical History Surgical History S/P dilation and curettage Family History Family History Grandparent Hypertension Cerebrovascular accident Family history of Alzheimer's disease Family history of coronary artery disease Diabetes mellitus Father Hypertension Patient's father is Other Heart disease Social History Social History Smoking status: Never smoker Second hand tobacco smoke exposure: No Alcohol intake: current Alcohol use details: RARE Substance use: current Substance use type: marijuana Lack of Transportation: No Lack of Food: Never True Current Housing: I Have Housing Concerned About Future Housing: No Difficulty Paying Gas/Electric Bills: No Difficulty Paying for Meds: No Currently Unemployed: No Education: Trade/Vocational Certificate Difficulty w/ Childcare or Family Care: No Living arrangements: with family Occupation/Education: unemployed Gender identity (if verbalized by the patient): Female Sexual Orientation (if Verbalized by the Patient): Straight or Heterosexual Spiritual care concerns: No Comments At time of signature, agree with nursing past medical, surgical, social and family history. There is no relevant family history pertinent to the presenting complaint Exam Narrative: GENERAL: Well-appearing, well-nourished, and in no acute distress. HEAD: Normocephalic EYES: PERRLA, conjunctivae clear ENT: Nares clear, turbinates edematous and erythematous. Mucous membranes moist. TM pearly eli with dull light reflex bilaterally; no tragal tenderness. Oropharynx erythematous without lesions. Tonsils not enlarged and without exudate, no drooling, no hoarseness, no trismus, uvula midline. NECK: Supple. No lymphadenopathy CHEST: Clear to auscultation, breath sounds equal. No wheezing, rhonchi, rales, or stridor. No respiratory distress, speaks in full sentences. HEART: Regular rate and rhythm. No murmur heard. SKIN: Warm, dry, no rash. NEURO: Alert and oriented x3. PSYCH: Normal mood
== END 2023-03-04 14:54 | disposition home or self-care (01) ==
PROVIDERS: Emergency Provider Nurse Practitioner; PCP Internal Medicine
DX: J06.9 Acute upper respiratory infection, unspecified (principal); Z20.822 Contact with and (suspected) exposure to COVID-19
CPT/HCPCS: 87081; 87426; 87804; 87880; 99213; C9803; G0463

== ENCOUNTER 2023-07-28 15:25 | Emergency (ER) | payer OTHER, MEDICAID, SELFPAY ==
[2023-07-28 15:39] VITALS: BP 109/65; PULSE 105; RESP 20; TEMP 36.6; O2SAT 98
--- NOTE | 2023-07-28 15:55 | ED.BACK ---
HPI - Back Pain/Injury General Chief Complaint: Back Pain/Injury Stated Complaint: Right Side Back Pain Time Seen by Provider: 07/28/23 15:30 Source: patient Mode of arrival: ambulatory Limitations: no limitations History of Present Illness HPI Narrative: Patient is a 33-year-old female who presents with right lower back pain that radiates into the buttocks and around into thigh. Patient states it is worsened over the last few days. Peak pain was last night when it woke her up out of sleep. Patient has not taken anything for pain. Patient has had sciatica in past. Denies any burning with urination, odor or increased frequency. Denies history of kidney stones. Denies any nausea, vomiting, diarrhea. Denies any loss of bowel or bladder. Denies any numbness, tingling, weakness to extremities. Related Data Home Medications Medication Instructions Recorded Confirmed albuterol sulfate 90 mcg/actuation inhalation 07/28/23 aerosol inhaler ferrous fumarate 324 mg (106 mg mg 07/28/23 iron) tablet (Ferrocite) Allergies Allergy/AdvReac Type Severity Reaction Status Date / Time tramadol Allergy Unknown Hives Verified 07/28/23 15:31 Review of Systems Review of Systems: All systems reviewed & are unremarkable except as noted in HPI and below Constitutional: Constitutional: Denies body ache(s), Denies chills, Denies fatigue, Denies fever(s), Denies headache(s), Denies malaise and Denies weakness Eyes: Eyes: Denies blurry vision, Denies irritation and Denies loss of vision ENT: Denies otalgia, Denies headache(s), Denies nasal discharge, Denies sinus pain and Denies sore throat Cardiovascular: Cardiovascular: Denies chest pain, Denies irregular heart rhythm and Denies dyspnea Respiratory: Respiratory: Denies dyspnea Gastrointestinal: Gastrointestinal: Denies abdominal pain, Denies melena, Denies hematochezia, Denies diarrhea, Denies nausea and Denies vomiting Musculoskeletal: Musculoskeletal: Reports back pain, Denies myalgias and Denies arthralgias Integumentary/Breasts: Skin/Breast: Denies pruritus and Denies rash Neurologic: Denies headache(s), Denies loss of vision and Denies weakness Psychiatric: Psychiatric: Reports no additional psychiatric complaints Endocrine: Endocrine: Denies fatigue PMFSH Past Medical History Medical History Anemia Asthma History of gonorrhea Joint disorder, unspecified Surgical History Surgical History S/P dilation and curettage Family History Family History Grandparent Hypertension Cerebrovascular accident Family history of Alzheimer's disease Family history of coronary artery disease Diabetes mellitus Father Hypertension Patient's father is Other Heart disease Social History Social History Smoking status: Never smoker Second hand tobacco smoke exposure: No Alcohol intake: current Alcohol use details: RARE Substance use: current Substance use type: marijuana Lack of Transportation: No Lack of Food: Never True Current Housing: I Have Housing Concerned About Future Housing: No Difficulty Paying Gas/Electric Bills: No Difficulty Paying for Meds: No Currently Unemployed: No Education: Trade/Vocational Certificate Difficulty w/ Childcare or Family Care: No Living arrangements: with family Occupation/Education: unemployed Gender identity (if verbalized by the patient): Female Sexual Orientation (if Verbalized by the Patient): Straight or Heterosexual Spiritual care concerns: No Comments At time of signature, agree with nursing past medical, surgical, social and family history. There is no relevant family history pertinent to the presenting complaint. 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
== END 2023-07-28 16:05 | disposition home or self-care (01) ==
PROVIDERS: Emergency Provider Nurse Practitioner Family; PCP Internal Medicine
DX: M54.31 Sciatica, right side (principal); J45.909 Unspecified asthma, uncomplicated
CPT/HCPCS: 81003; 87086; 99213; G0463

== ENCOUNTER 2023-09-05 17:00 | Emergency (ER) | payer OTHER, SELFPAY ==
[2023-09-05 17:14] VITALS: BP 136/82; PULSE 84; RESP 16; TEMP 36.3; O2SAT 99
--- NOTE | 2023-09-05 17:18 | ED.URI ---
HPI - URI/Sore Throat General Chief Complaint: Upper Respiratory Infection Stated Complaint: cough,loss of voice Time Seen by Provider: 09/05/23 17:49 Source: patient and RN notes reviewed Mode of arrival: ambulatory Limitations: no limitations History of Present Illness HPI Narrative: 33-year-old female presents concern for 5 week history of cough, sore throat, voice hoarseness. Reports symptoms worse last couple days. Reports taking hbyo-[id number]-[id number] medication without relief. She reports general malaise, denies fever. MD elicited complaint: cough Related Data Home Medications Medication Instructions Recorded Confirmed albuterol sulfate 90 mcg/actuation inhalation 07/28/23 aerosol inhaler ferrous fumarate 324 mg (106 mg 324 mg PO AC 07/28/23 iron) tablet (Ferrocite) Allergies Allergy/AdvReac Type Severity Reaction Status Date / Time tramadol Allergy Unknown Hives Verified 09/05/23 17:43 Review of Systems Review of Systems: CONSTITUTIONAL: Denies malaise, chills, sweats, or fever. EYES: Denies visual changes, redness, or discharge. ENT: Denies rhinorrhea, congestion, sinus pain, otalgia. Reports hoarse voice and sore throat. CARDIOVASCULAR: Denies chest pain, palpitations, or edema. RESPIRATORY: Reports productive cough. Denies dyspnea. GASTROINTESTINAL: Denies abdominal pain, nausea, vomiting, diarrhea SKIN: Denies rash or itching. MUSCULOSKELETAL: Denies myalgia. NEUROLOGIC: Denies headache. All systems reviewed & are unremarkable except as noted in HPI and below PMFSH Past Medical History Medical History Anemia Asthma History of gonorrhea Joint disorder, unspecified Surgical History Surgical History S/P dilation and curettage Family History Family History Grandparent Hypertension Cerebrovascular accident Family history of Alzheimer's disease Family history of coronary artery disease Diabetes mellitus Father Hypertension Patient's father is Other Heart disease Social History Social History Smoking status: Never smoker Second hand tobacco smoke exposure: No Alcohol intake: current Alcohol use details: RARE Substance use: current Substance use type: marijuana Lack of Transportation: No Lack of Food: Never True Current Housing: I Have Housing Concerned About Future Housing: No Difficulty Paying Gas/Electric Bills: No Difficulty Paying for Meds: No Currently Unemployed: No Education: Trade/Vocational Certificate Difficulty w/ Childcare or Family Care: No Living arrangements: with family Occupation/Education: unemployed Gender identity (if verbalized by the patient): Female Sexual Orientation (if Verbalized by the Patient): Straight or Heterosexual Spiritual care concerns: No Comments At time of signature, agree with nursing past medical, surgical, social and family history. There is no relevant family history pertinent to the presenting complaint Exam Narrative: GENERAL: Nontoxic-appearing, well-nourished, and in no acute distress. HEAD: Normocephalic EYES: PERRLA, conjunctivae clear ENT: Nares clear. Mucous membranes moist. TM pearly eli with dull light reflex bilaterally; no tragal tenderness. Oropharynx not erythematous without lesions. Tonsils not enlarged and without exudate, no drooling, no hoarseness, no trismus, uvula midline. NECK: Supple. No lymphadenopathy CHEST: Clear to auscultation, breath sounds slightly diminished in the right upper lobe. No wheezing, rhonchi, rales, or stridor. No respiratory distress, speaks in full sentences. Cough noted HEART: Regular rate and rhythm. No murmur heard. SKIN: Warm, dry, no rash. NEURO: Alert and oriented x3. PSYCH: Normal mood and affec
== END 2023-09-05 18:24 | disposition home or self-care (01) ==
PROVIDERS: Emergency Provider Nurse Practitioner; PCP Internal Medicine
DX: J22 Unspecified acute lower respiratory infection (principal); F12.90 Cannabis use, unspecified, uncomplicated; J45.909 Unspecified asthma, uncomplicated
CPT/HCPCS: 87081; 87880; 99213; G0463

== ENCOUNTER 2024-02-16 16:48 | Emergency (ER) | payer OTHER, MEDICAID, SELFPAY ==
[2024-02-16] VITALS (11 sets, daily range): BP systolic 132–159; BP diastolic 90–102; PULSE 71–108; RESP 14–20; TEMP 36.4–37.2; O2SAT 99–100
--- NOTE | ~2024-02-16 | XR_ITS ---
EXAMINATION: XR chest 1V portable DATE: 02/16/2024 17:41 INDICATION: Asthma. TECHNIQUE: A single frontal view of the chest was obtained. COMPARISON: Chest 2 views 12/29/2021 FINDINGS: The lung volumes are small. There is mild atelectasis bilaterally. No pleural effusion or p neumothorax. The heart size is normal. IMPRESSION: 1. Small lung volumes with mild atelectasis. Reviewed, dictated and finalized at location A.
--- NOTE | 2024-02-16 17:14 | ED.GENADULT ---
HPI - General Adult General Chief complaint: Shortness of Breath/Dyspnea Stated complaint: SOB Time Seen by Provider: 02/16/24 17:09 Source: patient Mode of arrival: ambulatory Limitations: no limitations History of Present Illness HPI narrative: This is a 34-year-old female with PMH of asthma who presents to the ED for chief complaint of possible asthma exacerbation. States that today she has felt very tight in the central chest. She states that it causes her to feel like she needs to cough. She also reports a choking sensation that develops intermittently. States this feels similar to a previous asthma exacerbations but 3 rounds of albuterol at home did not help today. Denies chest pain, productive cough, recent illness. 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 Denies fevers, chills, productive cough, chest pain, abdominal pain, nausea, vomiting, back pain. Related Data Home Medications Medication Instructions Recorded Confirmed albuterol sulfate 90 mcg/actuation inhalation 07/28/23 aerosol inhaler ferrous fumarate 324 mg (106 mg 324 mg PO AC 07/28/23 iron) tablet (Ferrocite) Allergies Allergy/AdvReac Type Severity Reaction Status Date / Time tramadol Allergy Unknown Hives Verified 02/16/24 16:48 Review of Systems Review of Systems: All systems as dictated in [facility] Past Medical History Medical History Anemia Asthma History of gonorrhea Joint disorder, unspecified Surgical History Surgical History S/P dilation and curettage Family History Family History Grandparent Hypertension Cerebrovascular accident Family history of Alzheimer's disease Family history of coronary artery disease Diabetes mellitus Father Hypertension Patient's father is Other Heart disease Social History Social History Smoking status: Never smoker Second hand tobacco smoke exposure: No Alcohol intake: current Alcohol use details: RARE Substance use: current Substance use type: marijuana Lack of Transportation: No Lack of Food: Never True Current Housing: I Have Housing Concerned About Future Housing: No Difficulty Paying Gas/Electric Bills: No Difficulty Paying for Meds: No Currently Unemployed: No Education: Trade/Vocational Certificate Difficulty w/ Childcare or Family Care: No Living arrangements: with family Occupation/Education: unemployed Gender identity (if verbalized by the patient): Female Sexual Orientation (if Verbalized by the Patient): Straight or Heterosexual Spiritual care concerns: No Exam Narrative: GENERAL: Well-appearing, well-nourished, and in no acute distress. HEAD: Normocephalic, atraumatic. EYES: PERRLA and EOMI. ENT: Nares clear, no rhinorrhea or epistaxis. Mucous membranes moist. Oropharynx without tonsillar hypertrophy exudate or other lesions. NECK: Supple. No adenopathy or masses. CHEST: No respiratory distress. Breath sounds diminished overall. No significant wheezes. Saturating well on room air. HEART: Regular rate and rhythm. No murmur heard. Normal peripheral pulses. ABDOMEN: Soft, nontender, nondistended, normal active bowel sounds. MSK: Normal range of motion. No edema. SKIN: Warm, dry, no rash. NEURO: Alert and oriented x4. No focal deficits. PSYCH: Normal mood and affect. Course Reevaluation(s) Reevaluation #1: patient is feeling much better overall. She is ready to go home. Respiratory exam is improved. She is moving air well and still saturating well on room air Date: 02/16/24 Time: 20:38 Vital Signs Vital signs: Vital Signs Temperature 97.6 F 02/16/24 16:50 Pulse Rate 71 02/16/24 16:50 Respiratory Rate 18 02/16/24 1
[2024-02-16] MEDS: IPRATROPIUM BR 0.02% INH SOLN 0.5 MG/2.5 ML VIAL 1 MG INHALATION (17:43)
[2024-02-16] MEDS: ALBUTEROL SULFATE NEB 2.5 MG/3 ML INH 10 MG INHALATION (17:43)
[2024-02-16] MEDS: predniSONE 20 MG TABLET PO (17:54)
[2024-02-16] MEDS: IPRATROPIUM 0.5 MG/ALBUTEROL SULFATE 2.5 MG AMPUL.NEB 3 ML INHALATION (18:58)
[2024-02-16] MEDS: methylPREDNISolone SOD SUCC 40 MG VIAL IV PUSH (19:53)
[2024-02-16] MEDS: MAGNESIUM SULF 2 GM/WATER 50ML 2 GM/50 ML BAG IVPB (19:53)
[2024-02-16 20:07] LABS: Basophils Percent Auto 0.4 % (0.2-1.2); Eosinophils Absolute Auto 0.1 K/mm3 (0-0.3); Eosinophils Percent Auto 0.7 % (0-4.4); Hematocrit 36.7 % (37.0-47.0); Hemoglobin 11.7 g/dL (12.0-15.0); Immature Granulocyte Absolute 0.02 K/mm3 (0.00-0.031); Immature Granulocyte Percent A 0.3 % (0-0.5); Lymphocytes Absolute Auto 2.74 K/mm3 (0.9-3.2); Lymphocytes Percent Auto 37.9 % (18.3-44.2); Mean Corpuscular HGB Conc 31.9 g/dl (32-36); Mean Corpuscular Hemoglobin 26.5 pg (26-34); Mean Corpuscular Volume 83.2 fl (80-100); Mean Platelet Volume 11.5 fl (7.4-10.4); Monocytes Absolute Auto 0.4 K/mm3 (0.1-0.6); Monocytes Percent Auto 6.1 % (2.6-8.5); Neutrophils Percent Auto 54.6 % (45.5-73.1); Platelet Count Result 275 k/mm3 (150-375); Red Blood Count 4.41 M/mm3 (4.2-5.4); Red Cell Distribution Width 13.6 % (11.5-14.5); White Blood Count 7.2 K/mm3 (4.5-10.0)
[2024-02-16 20:19] LABS: Anion Gap 13 mmol/L (4-12); Blood Urea Nitrogen 8 mg/dL (7-17); Calcium 9.4 mg/dL (8.4-10.2); Carbon Dioxide 22 mmol/L (22-30); Chloride 103 mmol/L (98-107); Estimated CRCL calculation 158 ml/min; Estimated Glomerular Filt Rate > 60; Glucose 116 mg/dL (65-110); Potassium 2.9 mmol/L (3.4-5.0); Sodium 138 mmol/L (137-145)
[2024-02-16] MEDS: POTASSIUM CHLORIDE 20 MEQ ER TABLET 40 MEQ PO (20:38)
[2024-02-16 20:55] LABS: Influenza A QL RT-PCR Negative (Negative); Influenza B QL RT-PCR Negative (Negative); RSV RNA, RT-PCR Negative (Negative); SARS-CoV-2 RNA PCR Negative (Negative)
== END 2024-02-16 21:50 | disposition home or self-care (01) ==
PROVIDERS: Emergency Provider Physician Assistant; PCP Internal Medicine
DX: J45.901 Unspecified asthma with (acute) exacerbation (principal); D64.9 Anemia, unspecified; Z20.822 Contact with and (suspected) exposure to COVID-19
CPT/HCPCS: 36415; 71045; 80048; 85025; 87637; 94640; 96365; 96366; 96375; 99284; A9270; J2919; J3475; J7512

== ENCOUNTER 2024-03-08 16:09 | Emergency (ER) | payer OTHER, MEDICAID, SELFPAY ==
--- NOTE | ~2024-03-08 | XR_ITS ---
EXAMINATION: XR foot LT min 3V DATE: 03/08/2024 16:43 INDICATION: Lateral left foot pain. TECHNIQUE: 4 views of left foot were obtained. COMPARISON: None. FINDINGS: Bone alignment is normal. No fracture. Joint spaces are normal. There is an enthesophyte at plantar aspect of calcaneal tuberosity. IMPRESSION: 1. Normal left foot. Reviewed, dictated and finalized at location A. IMPRESSION: 1. Normal left foot.
[2024-03-08 16:22] VITALS: BP 126/106; PULSE 88; RESP 18; TEMP 36.6; O2SAT 100
--- NOTE | 2024-03-08 16:31 | ED.LOWEXIN ---
HPI - Extremity Injury (Lower) General Chief Complaint: Extremity Injury, Lower Stated Complaint: Left Foot Pain Time Seen by Provider: 03/08/24 16:32 Source: patient, RN notes reviewed and old records reviewed Mode of arrival: ambulatory Limitations: no limitations History of Present Illness HPI Narrative: 34-year-old female presents to the [facility] with left lateral foot pain. States that she stubbed her 5th toe about a month ago and restarted last night. Mild swelling noted. Has taken Tylenol Related Data Home Medications Medication Instructions Recorded Confirmed ferrous fumarate 324 mg (106 mg 324 mg PO AC 07/28/23 03/08/24 iron) tablet (Ferrocite) Allergies Allergy/AdvReac Type Severity Reaction Status Date / Time tramadol Allergy Unknown Hives Verified 03/08/24 16:29 Review of Systems Review of Systems: All systems reviewed & are unremarkable except as noted in HPI and below Constitutional: Constitutional: Reports no additional constitutional complaints Eyes: Eyes: Reports no additional eye complaints ENT: Reports system reviewed and no additional complaints, except as documented Cardiovascular: Cardiovascular: Reports no additional cardiovascular complaints, Denies chest pain and Denies dyspnea Respiratory: Respiratory: Reports no additional respiratory complaints, Denies chest congestion, Denies cough and Denies dyspnea Gastrointestinal: Gastrointestinal: Reports no additional gastrointestinal complaints, Denies abdominal pain, Denies nausea and Denies vomiting Musculoskeletal: Musculoskeletal: Reports as per HPI Integumentary/Breasts: Skin/Breast: Reports system reviewed and no additional complaints, except as docu Neurologic: Reports system reviewed and no additional complaints, except as documented Psychiatric: Psychiatric: Reports no additional psychiatric complaints Allergic/Immunologic: Allergic/Immunologic: Reports no additional allergic/immunologic complaints [facility] Past Medical History Medical History Anemia Asthma History of gonorrhea Joint disorder, unspecified Surgical History Surgical History S/P dilation and curettage Family History Family History Grandparent Hypertension Cerebrovascular accident Family history of Alzheimer's disease Family history of coronary artery disease Diabetes mellitus Father Hypertension Patient's father is Other Heart disease Social History Social History Smoking status: Never smoker Second hand tobacco smoke exposure: No Alcohol intake: current Alcohol use details: RARE Substance use: current Substance use type: marijuana Lack of Transportation: No Lack of Food: Never True Current Housing: I Have Housing Concerned About Future Housing: No Difficulty Paying Gas/Electric Bills: No Difficulty Paying for Meds: No Currently Unemployed: No Education: Trade/Vocational Certificate Difficulty w/ Childcare or Family Care: No Living arrangements: with family Occupation/Education: unemployed Gender identity (if verbalized by the patient): Female Sexual Orientation (if Verbalized by the Patient): Straight or Heterosexual Spiritual care concerns: No Comments At the time of my signature, I reviewed and agree with the nursing past medical, surgical, social, and family history. There is no relevant family history pertinent to the patient complaint. Exam Const: General: cooperative, healthy appearing, comfortable, no acute distress, well developed, alert and well nourished Nutritional Appearance: well nourished and obese Orientation/consciousness: patient oriented x3 Limitations: no limitations HENMT: Head: normal to inspection Ears: hearing grossly normal barbara
== END 2024-03-08 17:10 | disposition home or self-care (01) ==
PROVIDERS: Emergency Provider Nurse Practitioner; PCP Internal Medicine
DX: S90.32XA Contusion of left foot, initial encounter (principal); S90.122A Contusion of left lesser toe(s) without damage to nail, initial encounter; X58.XXXA Exposure to other specified factors, initial encounter; J45.909 Unspecified asthma, uncomplicated; D64.9 Anemia, unspecified
CPT/HCPCS: 73630; 99213; G0463

== ENCOUNTER 2024-07-29 13:07 | Emergency (ER) | payer OTHER, BC, MEDICAID, SELFPAY ==
--- NOTE | ~2024-07-29 | CT_ITS ---
CLINICAL INDICATION: Diffuse abdominal pain COMPARISON: 01/19/2015. TECHNIQUE: Multiple contiguous axial images of the abdomen and pelvis were performed following the ad ministration of with 100 mL Omnipaque-350 intravenous contrast The dose-length product (DLP) was 1243.04 mGy-cm. Automated exposure control and iterative reconstruction technique were employed. FINDINGS/OBSERVATIONS: Visualized lower thorax: The bilateral lung bases are clear. The heart is of normal size, without pericardial effusion. Liver: The liver enhances homogeneously and is not enlarged measuring 18 cm in longitudinal dimension. Gallbladder and biliary system: The gallbladder is only minimally distended, and otherwise unremarkable. Pancreas: The pancreas enhances homogeneously without ductal dilatation. Spleen: The spleen enhances homogeneously and is not enlarged measuring 8 cm in longitudinal dimension. Kidneys: The bilateral kidneys enhance symmetrically without hydronephrosis or renal calculi. Adrenal glands: Unremarkable. Gastrointestinal tract: The cecum and proximal colon are fluid-filled. Trace mural thickening of multiple loops of nondilated small bowel with mild surrounding inflammatory change, primarily to the left of midline - findings for which a diffuse enteritis is suspected. Appendix: The air-filled appendix is of normal caliber (axial series, image 117) Vasculature: Unremarkable. Lymph nodes: No pathologically enlarged or morphologically suspicious lymph nodes within the retroperitoneum or at the root of the mesentery. Pelvic structures: The bladder is decompressed, limiting its evaluation. The uterus is retroverted and retroflexed Body wall and musculoskeletal: Small fat-containing umbilical hernia. No significant degenerative disease within the lower thoracic or lumbosacral spine. IMPRESSION: Findings suggesting a mild small bowel enteritis, primarily to the left of midline, in the appropriat e clinical scenario. Reviewed, dictated and finalized at location A. NTIFIC PUBLICATIONS EDITOR IMPRESSION: Findings suggesting a mild small bowel enteritis, primarily to the left of midl ine, in the appropriate clinical scenario.
[2024-07-29 13:09] VITALS: BP 147/80; PULSE 101; RESP 17; TEMP 36.7; O2SAT 100
--- OUTSIDE RECORDS SUMMARY | 2024-07-29 13:09 | XMS_ITS | Referral Summary ---
Author Organization [facility] Address [address] [place] [id number] Care Team Providers Care Sled Maker Name Role Phone Chely Pelaez MD Primary Care Provider Allergies Active Allergy Reactions Criticality Noted Date Comments Tramadol Unknown 03/21/2017 Medications ergocalciferol (VITAMIN D) 50,000 unit capsule Take 1 tablet by mouth once a week Active ferrous fumarate 325 mg (106 mg iron) tabletIndications :Anemia, unspecified type Take 1 tablet (325 mg total) by mouth daily with breakfast 90 tablet 3 3 Active omeprazole (PriLOSEC) 40 mg capsule Take 1 capsule (40 mg total) by mouth 2 (two) times a day 60 capsule 3 Active LORazepam (ATIVAN) 0.5 mg tablet Take 1-2 tablets (0.5-1 mg total) by mouth daily Take 30 minutes prior to procedure. 2 tablet 3 Active lidocaine (LIDODERM) 5 % 4 Active baclofen (LIORESAL) 10 mg tablet TAKE 1 TABLET BY MOUTH THREE TIMES DAILY FOR 5 DAYS 4 Active montelukast (SINGULAIR) 10 mg tablet Take 1 tablet (10 mg total) by mouth nightly 90 tablet 3 4 04/10/20 25 Active albuterol HFA (PROVENTIL HFA,VENTOLIN HFA,PROAIR HFA) 90 mcg/actuation inhalerIndication s:Mild intermittent asthma with exacerbation Inhale 1 puff every 6 (six) hours as needed for shortness of breath 1 each 2 4 Active budesonide-formot Aba (SYMBICORT) 160-4.5 mcg/actuation inhaler Inhale 2 puffs 2 (two) times a day Rinse mouth with water after use. Do not swallow. 10.2 g 3 4 Active Active Problems Problem Noted Date Diagnosed Date IFG (impaired fasting glucose) 09/09/2020 Assessment & Plan (09/09/2020 3:03 PM CDT): HbA1C 5.9. Intolerance to Metformin. Stopped Metformin. Numbness and tingling in right hand 09/09/2020 Assessment & Plan (09/09/2020 3:55 PM CDT): Overall Condition New Diagnosis and unknown, but likelt ashleigh hunter. Treatment: Lab: check labs as ordered. Follow up in 1 month Elevated blood sugar 05/08/2020 Assessment & Plan (05/08/2020 10:19 AM [employer] BO[employer] BU[employer]DER): Prediabetic. Need Aggressive 25lb weight loss. Recommended aggressive Lifestyle modification and weight loss for improving overall weight related health conditions. Follow up in 1 or 3 months for continuing Lifestyle Medicine education and management visit. Pain in both hands 07/30/2019 Assessment & Plan (07/30/2019 10:27 AM [employer] BU[employer]DER): Overall Condition: New Diagnosis and Needs more diagnostic info. Treatment: Lab: Rheumatoid Panel. 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 Follow up PRN Encounter for annual health examination 07/24/19 20 Class 3 severe obesity due t o excess calories without serious comorbidity with body mass index (BMI) of 45.0 to 49.9 in adult 07/24/2019 Assessment & Plan (09/09/2020 3:54 PM CDT): Overall Condition Chronic Condition: Uncontrolled. Treatment: New Medication: Start Phentermine. and Referral: Bariatric Surgery Follow up in 3 months Assessment & Plan (05/08/2020 10:18 AM [employer] BO[employer] BUILDER): Overall Condition Chronic Condition: Uncontrolled. Treatment: New Medication: Start Phentermine Follow up in 1 month Assessment & Plan (07/24/2019 4:00 PM [employer] BU[employer]DER): Recommended aggressive Lifestyle modification and weight loss for improving overall weight related health conditions. Follow up in 1 or 3 months for continuing Lifestyle Medicine education and management visit. Irritable bowel syndrome wit h both constipation and diarrhea 07/24/2019 Assessment & Plan (07/30/2019 10:26 AM [employer] BU[employer]DER): Overall Condition New Diagnosis. Treatment: New Medication: Start on PPI (Omeprazole) 40mg. Follow up in 6 months Chronic low back pain 07/24/2019 Assessment & Plan (07/30/2019 10:25 AM [employer] BU[employer]DER): Overall Condition Chronic Condition: Uncontrolled and Acute Flare on Chronic pain. . Treatment: New Medication: Naproxen/Flexeril for two weeks for flare up. Follow up PRN Immunizations Name Administration Dates Next Due Influenza, Trivalent, Preservative Free, Intramu scular 04/10/2024 Influenza, Unspecified 02/28/2023,05/04/2021 PPD TEST 03/09/2019,09/01/2016 Tdap 04/20/2021 Social History Tobacco Use Types Packs/Day Years Used Date Smoking Tobacco: Never Smokeless Tobacco: Never Tobacco Cessation:Counseling Given: No Alcohol Use Standard Drinks/Week Comments Yes 0 (1 standard drink = 0.6 oz pur e alcohol) AUDIT-C Answer Date Recorded Q1: How often do you have a drink containing alc ohol? Monthly or less 04/07/2023 Q2: How many drinks containi ng alcohol do you have on a typical day when you are drinking? 1 or 2 04/07/2023 Q3: How often do you have si x or more drinks on one occasion? Never 04/07/2023 PHQ-2 Answer Date Recorded PHQ-2 Total Score (If total score is 3 or more points, staff should administer the PHQ-9) 2 04/10/2024 Personal Safety Answer Date Recorded Getting School Help Needed Not on file 06/10 Comments No Sex and Gender Information Value Date Recorded Sex Assigned at Not on file Legal Sex Female 3:12 PM [employer] Gender Identity Female 09/18/2021 12:58 PM CDT Sexual Orientation Straight 09/18/2021 12 :58 PM CDT Last Filed Vital Signs Vital Sign Reading Time Taken Comments Blood Pressure 124/92 04/10/2024 3:43 PM CDT Pulse 85 04/10/2024 3:43 PM CDT Temperature 36.2 C (97.2 F) 04/10/2024 3:43 PM CDT Respiratory Rate 16 04/10/2024 3:43 PM CDT Oxygen Saturation 99% 04/10/2024 3:43 PM CDT Inhaled Oxygen Concentration - - Weight 116.9 kg (257 lb 12.8 oz) 04/10/2024 3:43 PM CDT Height 157.5 cm (5' 2 ) 04/10/2024 3:43 PM CDT Body Mass Index 47.15 04/10/2024 3:43 PM CDT Plan of Treatment Not on file Procedures Procedure Name Priority Date/Time Associated Diagnosis Comments EGFR Routine 04/07/2023 5:31 PM CDT Routine general medical examination at a health care facility HEMOGLOBIN A1C Routine 04/07/2023 5:31 PM CDT Elevated blood sugar LIPID PANEL Routine 04/07/2023 5:31 PM CDT Routine general medical examination at a health care facility HM PAP SMEAR WITH HPV Routine 02/20/2019 from Last 3 Months or Most Recently Relevant to Health Maintenance Results * eGFR (04/07/2023 5:31 PM CDT) eGFR 121 mL/min/1. 73 m2 Comment: Interpretive Data Reference Interval Normal >/= 90 mL/min/1.73m2 Mildly decreased* 60 - 89 mL/min/1.73m2 Mildly to moderately decreased 45 - 59 mL/min/1.73m2 Moderately to severely decreased 30 - 44 mL/min/1.73m2 Severely decreased 15 - 29 mL/min/1.73m2 Kidney Failure < 15 mL/min/1.73m2 *Relative to young adult level Estimated glomerular filtration rate is determined by the 2020 CKD-EPI equation recommended by the National Kidney Foundation (A Unifying Approach to GFR Estimation: Recommendations of the NKF-ASK Task Force on Reassessing the Inclusion of Race in Diagnosing Kidney Disease, JASN 2020). The CKD-EPI equation should not be used for patients with unstable renal function and has not been validated in children and those over 70. Current interpretive data was last reviewed 2021. Testing performed by: [address] [address] Blood 04/07/2023 5:31 PM CDT 04/07/2023 5:40 PM CDT Chely Pelaez MD LAB BLOOD ORD ERABLES Final Result Performing Organization Address City/[facility] Co de Phone Number [place] [address] [facility] [place] [address] * (ABNORMAL) Hemoglobin A1c (04/07/2023 5:31 PM CDT) [facility] Signature Hgb A1C 6.5(H) 4.0 - 5.6 % Comment:Testing performed by : [address] [address] Estimated Average Glucose 140 mg/dL KAVON Comment: The ADA recommends reporting an estimated Average Glucose (eAG) with all Hemoglobin A1c results using the equation derived from a study of 507 normal and diabetic adults. Minority populations were underrepresented and children were not included. (Diabetes Care 31:3207-7807, 2008). The eAG is not equivalent to a fasting glucose. Testing performed by: [address] [address] Blood 04/07/2023 5:31 PM CDT 04/07/2023 5:40 PM CDT us Chely Pelaez MD LAB BLOOD ORD ERABLES Final Result Performing Organization Address City/[facility] Co de Phone Number [place] [phone] [facility] Department [place] [address] * Lipid panel (04/07/2023 5:31 PM CDT) [facility] Cholesterol 178 30 - 199 mg/dL Comment: Interpretive Data Ages < or = 19 years Acceptable: <170 mg/dL Borderline high: 170-199 mg/dL High: >or= 200 mg/dL Ages > or = 20 years Desirable: <200 mg/dL Borderline high: 200-239 mg/dL High: >or= 240 mg/dL Literature References: 1. Expert Panel on Integrated Guidelines for Cardiovascular Health and Risk Reduction in Children and Adolescents. Pediatrics 2011;128:S213 2. NCEP Expert Panel. Circulation 2004;110:227 Current Interpretive Data was last revised on 2018. Testing performed by: [address] [address] Triglycerides 57 <=149 mg/dL KAVON Comment: Interpretive Data Ages < or = 9 years Acceptable: <75 mg/dL Borderline high: 75-99 mg/dL High: >or= 100 mg/dL Ages 10 to 20 years Acceptable: <90 mg/dL Borderline high: 90-129 mg/dL High: >or= 130 mg/dL Ages > or = 20 years Desirable: <150 mg/dL Borderline high: 150-199 mg/dL High: 200-499 mg/dL Very high: >or= 499 mg/dL Literature References: 1. Expert Panel on Integrated Guidelines for Cardiovascular Health and Risk Reduction in Children and Adolescents. Pediatrics 2011;128:S213 2. NCEP Expert Panel. Circulation 2004;110:227 Current Interpretive Data was last revised on 2018. Testing performed by: [address] [address] HDL 68 >=40 mg/dL KAVON Comment: Interpretive Data Ages < or = 19 years Acceptable: >45 mg/dL Borderline low: 40-45 mg/dL Low: <40 mg/dL Ages > or = 20 years Desirable: >or= 60 mg/dL Low: <40 mg/dL Literature References: 1. Expert Panel on Integrated Guidelines for Cardiovascular Health and Risk Reduction in Children and Adolescents. Pediatrics 2011;128:S213 2. NCEP Expert Panel. Circulation 2004;110:227 Current Interpretive Data was last revised on 2018. Testing performed by: [address] [address] LDL, calculated 99 <=129 mg/dL [facility] [place] Comment: Interpretive Data Ages < or = 19 years Acceptable: <110 mg/dL Borderline high: 110-129 mg/dL High: >or= 130 mg/dL Ages > or = 20 years Optimal: <100 mg/dL Near optimal: 100-129 mg/dL Borderline high: 130-159 mg/dL High: >160 mg/dL Literature References: 1. Expert Panel on Integrated Guidelines for Cardiovascular Health and Risk Reduction in Children and Adolescents. Pediatrics 2011;128:S213 2. NCEP Expert Panel. Circulation 2003;110:227 Current Interpretive Data was last revised on 2018. Testing performed by: [address] [address] Non-HDL Cholesterol 110 mg/dL [facility]AVON COLE Comment: Interpretive Data Ages < or = 19 years Acceptable: <120 mg/dL Borderline high: 120-144 mg/dL High: >145 mg/dL Ages > or = 20 years When triglycerides are >200 mg/dL, Non-HDL cholesterol is a secondary target of therapy with treatment goals that are 30 mg/dL greater than the LDL cholesterol target. Literature References: 1. Expert Panel on Integrated Guidelines for Cardiovascular Health and Risk Reduction in Children and Adolescents. Pediatrics 2011;128:S213 2. NCEP Expert Panel. Circulation 2004;110:227 Current Interpretive Data was last revised on 2018. Testing performed by: [address] [address] Chol/HDL ratio 3 KAVON Comment:Testing performed by : [address] [address] Blood 04/07/2023 5:31 PM CDT 04/07/2023 5:40 PM CDT us Chely Pelaez MD LAB BLOOD ORD ERABLES Final Result [place] [address] [facility] Department [place] [address] * PAP SMEAR WITH HPV (02/20/2019) Pap smear Normal Historical Provider HEALTH MAINTENANCE Final Result from Last 3 Months or Most Recently Relevant to Health Maintenance Insurance [facility] CHOICE PLUS IDPA Care Teams Sled Maker Relationship Specialty Start Date End Date Chely Pelaez MD PCP - General Internal Medicine 09/23/21
--- OUTSIDE RECORDS SUMMARY | 2024-07-29 13:09 | XMS_ITS | Clinical Summary ---
Author Organization [facility] [employer] Address [address] [place] [address] Care Team Providers Care Sales Planning Analyst Name Role Phone Chase Stringer MD Primary Care Provider [phone] Source Comments [facility] [employer],non-[place] Affiliates and Associated Physician Practices is amultiple site organization consisting of ambulatory clinics and hospital sitesin [place], [place], [place] and [place]. This disclosure is being madepursuant to the Care Everywhere program and may not contain all information available regarding this patient. Last updated 18.[facility] [employer] Allergies Active Allergy Reactions Criticality Noted Date Comments Tramadol 03/21/2017 Medications * Be aware that medications may not be up to date on this document. Alwaysverify current medications with the patient. Medication Sig Dispensed Refills Start Date End Date Status ALBUTEROL IN Active predniSONE (DELTASONE) 20 MG tabletIndications:Acu te Asthmatic Bronchitis Take 20 mg by mouth once daily Reasons: Acute Asthmatic Bronchitis Active lidocaine visc 2%-diphenhydramine 2.5mg/ml-alum&mg hydroxide 400/400 oral susp 1:1:1 suspensionIndications :Strep pharyngitis 15 mL every 6 hours as needed Swish and Gargle Q 4-6 hours as needed for sore throat 120 mL 03/21/2017 Active Vit-DSS-Fe Fum-FA ( vitamin with iron) tablet Take 1 (one) tablet by mouth once daily Active Vitamin D, Ergocalciferol, 41779 units CAPS Take 1 tablet by mouth every 7 days Active albuterol HFA (Proventil; Ventolin; Proair) 108 (90 Base) MCG/ACT inhaler Inhale 2 (two) puffs by mouth every 6 hours as needed Active Active Problems No known active problems Social History Tobacco Use Types Packs/Day Years Used Date Smoking Tobacco: Former Smokeless Tobacco: Never Tobacco Cessation:Counseling Given: Not Answered Sex and Gender Information Value Date Recorded Sex Assigned at Female 12/23/2022 1:23 PM CDT Gender Identity Female 12/23/2022 1:23 PM CDT Sexual Orientation Straight 12/23/2022 1: 23 PM CDT Last Filed Vital Signs Vital Sign Reading Time Taken Comments Blood Pressure 129/79 12/29/2022 11:47 AM CDT Pulse 91 12/29/2022 11:47 AM CDT Temperature 36.9 C (98.4 F) 03/21/2017 6:16 PM CDT Respiratory Rate 16 03/21/2017 6:16 PM CDT Oxygen Saturation 100% 12/29/2022 11: 47 AM CDT Inhaled Oxygen Concentration - - Weight 112.7 kg (248 lb 6.4 oz) 023 11:47 AM CDT Height 154.9 cm (5' 1 ) 12/29/2022 11:4 7 AM CDT Body Mass Index 46.93 12/29/2022 11:47 AM CDT Plan of Treatment Upcoming Encounters Date Type Department Care Team (Late st Contact Info) Description 08/13/2024 1:00 PM LEGAL OPERATIONS MANAGER Office Visit [facility] - [address] [phone] Health Maintenance Due Date Last Done Comments PAP SMEAR 1989 HIV SCREENING 01/29/2004 HEPATITIS C SCREENING 01/24/2007 DTAP/TDAP/TD VACCINES (1 - Tdap) 01/29/2008 HEPATITIS B VACCINE (1 of 3 - 19+ 3-dose series) 01/29/2008 COVID-19 VACCINE ( - 2023-2 5 season) 2024 10/21/2020, 09/30/2020 INFLUENZA VACCINE (#1) 2024 05/04/2021 DEPRESSION SCREENING 06/20/2024 ZOSTER VACCINE (1 of 2) 2039 HIB VACCINE Aged Out No longer eligi ble based on patient's age to complete this topic HPV VACCINE Aged Out No longer eligi ble based on patient's age to complete this topic MENINGOCOCCAL (Group B) VACCINE Aged Out No longer eligible b ased on patient's age to complete this topic MENINGOCOCCAL VACCINE Aged Out No maru bran eligible based on patient's age to complete this topic PNEUMOCOCCAL VACCINE Aged Out No long er eligible based on patient's age to complete this topic Care Teams Sales Planning Analyst Relationship Specialty Start Date End Date Chase Stringer MD [address] [place] [id number] PCP - General Family Medicine 09/01/16
--- OUTSIDE RECORDS SUMMARY | 2024-07-29 13:09 | XMS_ITS | Patient Health Summary ---
Author Organization [facility] Address [address] [place] [address] Care Team Providers Care Dehairer Name Role Phone Chase Stringer MD Primary Care Provider [phone] Note from [facility],non-owned Affiliates and Associated Physician Practices is amultiple site organization consisting of ambulatory clinics and hospital sitesin [place], [place], [place] and [place]. This disclosure is being madepursuant to the Care Everywhere program and may not contain all information available regarding this patient. Last updated 18.[facility] Allergies * Tramadol Medications * Be aware that medications may not be up to date on this document. Alwaysverify current medications with the patient. * ALBUTEROL IN * predniSONE (DELTASONE) 20 MG tablet Take 20 mg by mouth once daily Reasons: Acute Asthmatic Bronchitis * lidocaine visc 2%-diphenhydramine 2.5mg/ml-alum&mg hydroxide 400/400 oral susp 1:1:1 suspension(Started 03/21/2017) 15 mL every 6 hours as needed Swish and Gargle Q 4-6 hours as needed for sore throat * Vit-DSS-Fe Fum-FA ( vitamin with iron) tablet Take 1 (one) tablet by mouth once daily * Vitamin D, Ergocalciferol, 50317 units CAPS Take 1 tablet by mouth every 7 days * albuterol HFA (Proventil; Ventolin; Proair) 108 (90 Base) MCG/ACT inhaler Inhale 2 (two) puffs by mouth every 6 hours as needed Active Problems No known active problems Social [...] Mass Index 46.93 12/29/2022 11:47 AM CDT Procedures * SKIN TEST PPD - POINT OF CARE(Performed 03/09/2019) Performed for Encounter for PPD test * STREP A SCREEN - POINT OF CARE (AMB) STL(Performed 03/21/2017) Performed for Strep pharyngitis * SKIN TEST PPD - POINT OF CARE(Performed 09/03/2016) Performed for PPD screening test Results * SKIN TEST PPD - POINT OF CARE (03/09/2019) Only the most recent of2 resultswithin the time period is included. PPD 0mm Comment:No induration Other MISCELLANEOUS SAMPLE S / Unknown 03/09/2019 Sylvie Whitlock APRN-FORM BUILDER HELPER LAB - POINT OF CA RE ORDERABLES * (ABNORMAL) STREP A SCREEN (03/21/2017 6:43 PM CDT) Strep A Rapid POCT Positive(A) Negative Strep A Internal Control Present Lot # [id number] Expiration Date 10/06/18 Throat ENTIRE THROAT (SURFACE REGION OF NECK) / Unknown 03/21/2017 6:43 PM CDT Mónica Peres INFORMATION ASSURANCE-FORM BUILDER HELPER LAB - POINT OF CA RE ORDERABLES Care Teams Dehairer Relationship Specialty Start Date End Date Chase Stringer MD [address] [facility] [address] [place] [address] PCP - General Family Medicine 09/01/16
--- OUTSIDE RECORDS SUMMARY | 2024-07-29 13:09 | XMS_ITS | Encounter Summary ---
Author Organization [facility] Healthcare Address [address] [place] [address] Care Team Providers Care Full Time Babysitter Name Role Phone Chely Pelaez MD Primary Care Provider Encounter Details Date Type Department Care Team (Late st Contact Info) Description 09/05/2023 [facility] [address] [place] [address] Scanning, Provider Social History Tobacco Use Types Packs/Day Years Used Date Smoking Tobacco: Never Smokeless Tobacco: Never Alcohol Use Standard Drinks/Week Comments Yes 0 [...] more points, staff should administer the PHQ-9) 0 09/09/2023 Personal Safety Answer Date Recorded Getting School Help Needed Not on file 06/10 Comments No Sex and Gender Information Value Date Recorded Sex Assigned at Not on file Legal Sex Female 3:12 PM BIOFUELS PRODUCT DEVELOPMENT MANAGER Gender Identity Female 09/18/2021 12:58 PM CDT Sexual Orientation Straight 09/18/2021 12 :58 PM CDT documented as of this encounter Plan of Treatment Not on file documented as of this encounter Procedures Procedure Name Priority Date/Time Associated Diagnosis Comments SCAN - LABS 09/05/2023 documented in this encounter Results * SCAN - LABS (09/05/2023) us Provider Scanning Final Result documented in this encounter Visit Diagnoses Not on filedocumented in this encounter Care Teams Full Time Babysitter Relationship Specialty Start Date End Date Chely Pelaez MD PCP - General Internal Medicine 09/23/21 documented as of this encounter
--- OUTSIDE RECORDS SUMMARY | 2024-07-29 13:09 | XMS_ITS | Clinical Summary ---
Author Organization [facility] Address [address] [place] [phone] Care Team Providers Care Band Manager Name Role Phone Chely Pelaez MD Primary [...] 05/08/2020 Assessment & Plan (05/08/2020 10:19 AM LINER CHECKER): Prediabetic. Need Aggressive 25lb weight loss. Recommended aggressive Lifestyle modification and weight loss for improving overall weight related health conditions. Follow up in 1 or 3 months for continuing Lifestyle Medicine education and management visit. Pain in both hands 07/30/2019 Assessment & Plan (07/30/2019 10:27 AM LINER CHECKER): Overall Condition: New Diagnosis and Needs more diagnostic info. Treatment: Lab: Rheumatoid Panel. may consider Carpet Jack in the future. Follow up PRN Encounter [...] months Assessment & Plan (05/08/2020 10:18 AM LINER CHECKER): Overall Condition Chronic Condition: Uncontrolled. Treatment: New Medication: Start Phentermine Follow up in 1 month Assessment & Plan (07/24/2019 4:00 PM LINER CHECKER): Recommended aggressive Lifestyle modification and weight loss for improving overall weight related health conditions. Follow up in 1 or 3 months for continuing Lifestyle Medicine education and management visit. Irritable bowel syndrome wit h both constipation and diarrhea 07/24/2019 Assessment & Plan (07/30/2019 10:26 AM LINER CHECKER): Overall Condition New Diagnosis. Treatment: New Medication: Start on PPI (Omeprazole) 40mg. Follow up in 6 months Chronic low back pain 07/24/2019 Assessment & Plan (07/30/2019 10:25 AM LINER CHECKER): Overall Condition Chronic Condition: Uncontrolled and Acute Flare on Chronic pain. . Treatment: New Medication: Naproxen/Flexeril for two weeks for flare up. Follow up PRN Immunizations Name Administration Dates Next Due Influenza, Trivalent, Preservative Free, Intramu scular 04/10/2024 Influenza, Unspecified 02/28/2023,05/04/2021 PPD TEST 03/09/2019,09/01/2016 Tdap 04/20/2021 Surgical History Surgery Date Site/Laterality Comments DILATION AND CURETTAGE OF UTERUS 03/20/2020 - 0 TUBAL LIGATION 02/04/2023 Right Medical History Medical History Date Comments Asthma Family History Medical History Relation Name Comments Diabetes Father Hypertension Mother Relation Name Status Comments Father Alive Mother Alive Social History Tobacco Use Types Packs/Day Years [...] on file Legal Sex Female 3:12 PM LINER CHECKER Gender Identity Female 09/18/2021 12:58 PM CDT Sexual Orientation Straight 09/18/2021 12 :58 PM CDT Obstetrics History Para Term AB IAB SAB Ectopic Multiple Livin g Live Births 4 1 1 3 3 1 1 Date Outcome GA Total Labor Labor//3rd Weight Sex Type Anes PTL Venessa A1 A5 Name Clin 2008 Vag-S pont Living 2017 SAB 0 SAB Comments 2008 Spontaneous conception. PROM at 5 months. 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 Previous partner. 2017 PUL. Positive UPT only. Current partner. 2018 PUL. Positive UPT only. Current partner. 03/2020 SAB 14 weeks. Required D & C for retained placenta. (With ) Last Filed Vital Signs Vital Sign Reading [...] 04/10/2024 3:43 PM CDT Plan of Treatment Health Maintenance Due Date Last Done Comments Albumin Creatinine Ratio, Urine 1989 Hepatitis C Screening 1989 Dilated Eye Exam 1989 Pneumococcal vaccine <65 (1 of 2 - PCV) 1995 Hepatitis B Screening 2007 Cervical Cancer Screening 02/21/2020 02/20/2019 Hemoglobin A1C 10/07/2023 04/07/2023, 09/18, 09/23/2021, Additional history exists Covid-19 Vaccine ( season) 2024 10/21/2020, 09/30/2020 Lipid Panel 04/07/2024 04/07/2023, 09/23/2021 eGFR 04/07/2024 04/07/2023, 02/19, 09/23/2021 Depression Screening 04/10/2025 04/10/2024, 09/09/2023, 04/07/2023, Additional history exists Foot Exam 04/10/2025 04/10/2024 Regular Well Visit/Exam 18-64 04/10/2025 04/10/2024, 04/07/2023, 09/23/2021, Additional history exists DTaP/Tdap/Td Vaccine (2 - Td or Tdap) 04/20/2031 04/20/2021 Influenza Vaccine Completed 04/10/2024, , 05/04/2021 HPV Vaccines Aged Out No longer eligi ble based on patient's age to complete this topic Varicella Vaccines Discontinued Procedures Procedure Name Priority Date/Time Associated Diagnosis [...] was last reviewed 2021. Testing performed by: [address] [address] Blood 04/07/2023 5:31 PM CDT 04/07/2023 5:40 PM CDT us Chely Pelaez MD LAB BLOOD ORD ERABLES Final Result [facility] [address] [facility] Department of Laboratories [place], [place] [id number] * (ABNORMAL) Hemoglobin A1c (04/07/2023 5:31 PM CDT) [facility] Hgb A1C 6.5(H) 4.0 - 5.6 % Comment:Testing performed by : [address] [address] Estimated Average Glucose 140 mg/dL KAVON Comment: The ADA recommends reporting an estimated Average Glucose (eAG) with all Hemoglobin A1c results using the equation derived from a study of 507 normal and diabetic adults. Minority populations were underrepresented and children were not included. (Diabetes Care 31:5498-4312, 2008). The eAG is not equivalent to a fasting glucose. Testing performed by: [address] [address] Blood 04/07/2023 5:31 PM CDT 04/07/2023 5:40 PM CDT us Chely Pelaez MD LAB BLOOD ORD ERABLES Final Result [facility] [address] [facility] Department [place] [address] * Lipid panel (04/07/2023 5:31 PM CDT) Cholesterol 178 30 - 199 mg/dL Comment: [...] last revised on 2018. Testing performed by: [address] [address] Triglycerides 57 <=149 mg/dL KAVON Comment: Interpretive [...] last revised on 2018. Testing performed by: [address] [address] HDL 68 >=40 mg/dL KAVON Comment: Interpretive [...] last revised on 2018. Testing performed by: [address] [address] LDL, calculated 99 <=129 mg/dL KAVON Comment: Interpretive Data Ages < [...] last revised on 2018. Testing performed by: [address] [address] Non-HDL Cholesterol 110 mg/dL KAVON Comment: Interpretive Data Ages < [...] last revised on 2018. Testing performed by: [address] [address] Chol/HDL ratio 3 KAVON Comment:Testing performed by : [address] [address] Blood 04/07/2023 5:31 PM CDT 04/07/2023 5:40 PM CDT Chely Pelaez MD LAB BLOOD ORD ERABLES Final Result KAVON MH [address] [facility] Department [place] [address] * PAP SMEAR WITH HPV (02/20/2019) Pap smear Normal us Historical Provider HEALTH MAINTENANCE Final Result from Last 3 Months or Most Recently Relevant to Health Maintenance Insurance [facility] CORE [facility] CHOICE [facility] HMO/PPO Address: [address] [address] [place] [address] [employer] Care Teams Band Manager Relationship Specialty Start Date End Date Chely Pelaez MD PCP - General Internal Medicine 09/23/21
--- OUTSIDE RECORDS SUMMARY | 2024-07-29 13:09 | XMS_ITS | Referral Summary ---
Author Organization [facility] [employer] Address [address] [place] [address] Care Team Providers Care Wind Energy Technician Name Role Phone Chase Stringer MD Primary Care Provider [phone] Source Comments [facility],non-[facility] Affiliates and Associated Physician Practices is amultiple site organization consisting of ambulatory clinics and hospital sitesin [place], [place], [place] and [place]. This disclosure is being madepursuant to the Care Everywhere program and may not contain all information available regarding this patient. Last updated 18.[facility] [employer] Allergies Active Allergy Reactions Criticality Noted Date [...] mouth once daily Active Vitamin D, Ergocalciferol, 63878 units CAPS Take 1 tablet by mouth [...] st Contact Info) Description 08/13/2024 1:00 PM ASSEMBLY LOADER Office Visit [facility] - [address] [phone] Administered Medications Care Teams Wind Energy Technician Relationship Specialty Start Date End Date Chase Stringer MD [address] [facility] [address] [facility] [address] [place] [address] PCP - General Family Medicine 09/01/16
[2024-07-29 13:27] LABS: Basophils Percent Auto 0.1 % (0.2-1.2); Eosinophils Percent Auto 0.3 % (0-4.4); Hematocrit 36.6 % (37.0-47.0); Hemoglobin 11.7 g/dL (12.0-15.0); Immature Granulocyte Absolute 0.02 K/mm3 (0.00-0.031); Immature Granulocyte Percent A 0.3 % (0-0.5); Lymphocytes Absolute Auto 1.23 K/mm3 (0.9-3.2); Lymphocytes Percent Auto 17.3 % (18.3-44.2); Mean Corpuscular Hemoglobin 25.8 pg (26-34); Mean Corpuscular Volume 80.8 fl (80-100); Mean Platelet Volume 10.9 fl (7.4-10.4); Monocytes Absolute Auto 0.4 K/mm3 (0.1-0.6); Monocytes Percent Auto 5.9 % (2.6-8.5); Neutrophils Absolute Auto 5.4 K/mm3 (1.3-6.7); Neutrophils Percent Auto 76.1 % (45.5-73.1); Platelet Count Result 336 k/mm3 (150-375); Red Blood Count 4.53 M/mm3 (4.2-5.4); Red Cell Distribution Width 15.9 % (11.5-14.5); White Blood Count 7.1 K/mm3 (4.5-10.0)
[2024-07-29 13:38] LABS: Alanine Aminotransferase 24 U/L (6-35); Albumin Level 4.3 g/dL (3.5-5.1); Alkaline Phosphatase 74 U/L (38-126); Anion Gap 10 mmol/L (4-12); Aspartate Amino Transferase 20 U/L (14-36); Bilirubin,Total 0.6 mg/dL (0.2-1.3); Blood Urea Nitrogen 12 mg/dL (7-17); Calcium 9.4 mg/dL (8.4-10.2); Carbon Dioxide 21 mmol/L (22-30); Chloride 106 mmol/L (98-107); Estimated CRCL calculation 171 ml/min; Estimated Glomerular Filt Rate > 60; Glucose 112 mg/dL (65-110); Lipase 30 U/L (23-300); Potassium 3.7 mmol/L (3.4-5.0); Sodium 137 mmol/L (137-145)
[2024-07-29 13:56] LABS: BEDSIDEPREGUCG Negative (Negative)
[2024-07-29 14:09] LABS: Add Urine Microscopic? YES; Appearance Urine Cloudy (Clear); Bacteria Urine Rare /hpf; Bilirubin Urine Negative (Negative); Blood Urine Negative (Negative); Color Urine Dark Yellow (Yellow); Glucose Urine UA Negative (Negative); Ketones Urine Trace mg/dL (Negative); Leukocyte Esterase Ur Negative LEU/UL (Negative); Nitrate Urine Negative (Negative); Non Pathogenic Casts 0-2; Protein Urine Trace mg/dL (Negative); RBC Urine 0-2 /hpf (0-2); Specific Grav Ur 1.033 (1.001-1.035); Squamous Epithelial Cell Urine Occasional /hpf (Few); WBC Urine 0-5 /hpf (0-3); pH Urine 5.5 (5.0-9.0)
--- NOTE | 2024-07-29 14:17 | ED_ITS ---
HPI - Abdominal Pain General Chief Complaint: Abdominal Pain Stated Complaint: abd pain Time Seen by Provider: 07/29/24 14:00 History of Present Illness HPI narrative: 34 Year old female with history of right hydrosalpinx and oophorectomy presents emergency department for acute on chronic abdominal pain. Patient states she has had intermittent abdominal pain for 6-7 years. She has been evaluated by several GI physicians at [place] with no specific diagnoses. States she did have a endoscopy about a year ago which showed a hernia and blockage and was prescribed Protonix. She also states she had a colonoscopy a few years ago which was unremarkable. She presents to the ED today because she states her pain has changed in worsened over the past 3 days. She states the pain is in her epigastrium and right upper quadrant at times radiates to her periumbilical region. She reports associated nausea, vomiting and diarrhea that started last night. LBM in the waiting room. Patient also knows she was prescribed Linzess at one point but is no longer taking this. She denies dysuria or hematuria. LMP 1 month ago. She has an apt with [facility] on 08/13. Related Data Home Medications ?Medication ?Instructions ?Recorded ?Confirmed ?Last Taken ?Type ferrous fumarate 324 mg (106 mg 324 mg PO AC 07/28/23 03/08/24 Unknown History iron) tablet (Ferrocite) Allergies Allergy/AdvReac Type Severity Reaction Status Date / Time tramadol Allergy Unknown Hives Verified 07/29/24 13:07 Review of Systems 2 Review of Systems: All systems reviewed & are unremarkable except as noted in HPI and below PMFSH Past Medical History Medical History History of gonorrhea Anemia Asthma Joint disorder, unspecified Surgical History Surgical History S/P dilation and curettage Family History Family History Grandparent Hypertension Cerebrovascular accident Family history of Alzheimer's disease Family history of coronary artery disease Diabetes mellitus Father Hypertension Patient's father is Other Heart disease Social History Social History Smoking status: Never smoker Second hand tobacco smoke exposure: No Alcohol intake: current Alcohol use details: RARE Substance use: current Substance use type: marijuana Lack of Transportation: No Lack of Food: Never True Current Housing: I Have Housing Concerned About Future Housing: No Difficulty Paying Gas/Electric Bills: No Difficulty Paying for Meds: No Currently Unemployed: No Education: Trade/Vocational Certificate Difficulty w/ Childcare or Family Care: No Living arrangements: with family Occupation/Education: unemployed Gender identity (if verbalized by the patient): Female Sexual Orientation (if Verbalized by the Patient): Straight or Heterosexual Spiritual care concerns: No Exam 2 Narrative: GENERAL: Well-appearing, well-nourished, and in no acute distress. HEAD: Normocephalic, atraumatic. EYES: EOMI. ENT: Nares clear, no rhinorrhea or epistaxis. Mucous membranes moist. NECK: Supple. CHEST: Clear to auscultation. No respiratory distress. HEART: Regular rate and rhythm. No murmur heard. Normal peripheral pulses. ABDOMEN: Normoactive bowel sounds. Abdomen soft with diffuse tenderness, more notably over the epigastrium and right upper quadrant. Rigidity. No CVA tenderness. EXTREMITIES: Normal range of motion. No edema. SKIN: Warm, dry, no rash. NEURO: No focal deficits. Alert and oriented x3 Course Vital Signs Vital signs: Vital Signs Temperature 98.1 F 07/29/24 13:09 Pulse Rate 101 H 07/29/24 13:09 Respiratory Rate 17 07/29/24 13:09 Blood Pressure 147/80 H 07/29/24 13:09 Pulse Oximetry 100 07/29/24 13:09 Oxygen Delivery Room Air 07/29/24 13:09 Temperature 98.1 F 07/29/24 13:09 Pulse Rate 101 H 07/29/24 13:09 Respiratory Rate 17 07/29/24 13:09 Blood Pressure 147/80 H 07/29/24 13:09 Pulse Oximetry 100 07/29/24 13:09 Oxygen Delivery Room Air 07/29/24 13:09 MDM - Abdominal Pain MDM Narrative Medical decision making narrative: 34-year-old female with chronic abdominal pain presents to the ED for acute on chronic abdominal pain. See HPI for further history. Vitals stable. Patient is afebrile and nontoxic appearing. Exam is significant for the above. CBC without leukocytosis, chronic anemia with hemoglobin of 11.7. Chemistries are largely unremarkable, normal LFTs, normal lipase. UA without infection, trace ketones. is negative. CT abdomen pelvis shows findings suggesting of mild small-bowel enteritis. Patient updated on results. Suspect she has an acute bout of enteritis, likely viral but the source of her change of symptoms. She was given Toradol, Bentyl, Pepcid, Zofran a GI cocktail. She is tolerating p.o. intake. Will send Pepcid, Zofran and ibuprofen to the pharmacy. Encouraged increased fluid intake I discussed supportive care. Advised her to follow-up closely with her GI physician at her upcoming appointment. Return precautions discussed. She is agreeable with the plan verbalized understanding. Discharged in stable condition Lab Data 07/29/24 13:21 07/29/24 13:21 Labs: Lab Results 07/29/24 07/29/24 07/29/24 Range/Units 13:21 13:53 13:54 WBC 7.1 (4.5-10.0) K/mm3 RBC 4.53 (4.2-5.4) M/mm3 Hgb 11.7 L (12.0-15.0) g/dL Hct 36.6 L (37.0-47.0) % MCV 80.8 (80-100) fl MCH 25.8 L (26-34) pg MCHC 32.0 (32-36) g/dl RDW 15.9 H (11.5-14.5) % Plt Count 336 (150-375) k/mm3 MPV 10.9 H (7.4-10.4) fl Immature Gran % (Auto) 0.3 (0-0.5) % Neut % (Auto) 76.1 H (45.5-73.1) % Lymph % (Auto) 17.3 L (18.3-44.2) % [place] % (Auto) 5.9 (2.6-8.5) % Eos % (Auto) 0.3 (0-4.4) % Baso % (Auto) 0.1 L (0.2-1.2) % Lymph # (Auto) 1.23 (0.9-3.2) K/mm3 [place] # (Auto) 0.4 (0.1-0.6) K/mm3 Eos # (Auto) 0.0 (0-0.3) K/mm3 Baso # (Auto) 0.0 (0.0-0.1) K/mm3 Abs Immat Gran (auto) 0.02 (0.00-0.031) K/mm3 Absolute Neuts (auto) 5.4 (1.3-6.7) K/mm3 Absolute Nucleated RBC 0.000 (0.0-0.012) K/mm3 Nucleated RBC % 0.0 (0.0-0.2) % Sodium 137 (137-145) mmol/L Potassium 3.7 (3.4-5.0) mmol/L Chloride 106 (98-107) mmol/L Carbon Dioxide 21 L (22-30) mmol/L Anion Gap 10 (4-12) mmol/L BUN 12 (7-17) mg/dL Creatinine 0.44 L (0.7-1.0) mg/dL Estim Creat Clear Calc 171 ml/min Estimated GFR > 60 (59 - ) Glucose 112 H (65-110) mg/dL Calcium 9.4 (8.4-10.2) mg/dL Total Bilirubin 0.6 (0.2-1.3) mg/dL AST 20 (14-36) U/L ALT 24 (6-35) U/L Alkaline Phosphatase 74 (38-126) U/L Total Protein 8.0 (6.3-8.2) g/dL Albumin 4.3 (3.5-5.1) g/dL Lipase 30 (23-300) U/L Urine Color Dark yellow (Yellow) Urine Appearance Cloudy H (Clear) Urine pH 5.5 (5.0-9.0) Ur Specific [place] 1.033 (1.001-1.035) Urine Protein Trace (Negative) mg/dL Urine Glucose (UA) Negative (Negative) mg/dL Urine Ketones Trace H (Negative) mg/dL Ur Blood (Man) Negative (Negative) Urine Nitrate Negative (Negative) Urine Bilirubin Negative (Negative) Urine Urobilinogen 1.0 (<2.0) mg/dL Leukocyte Esterase Rfl Negative (Negative) JOEY/UL Urine RBC 0-2 (0-2) /hpf Urine WBC 0-5 (0-3) /hpf Ur Squamous Epith Cells Occasional (Few) /hpf Urine Bacteria Rare /hpf Urine Casts 0-2 POC Urine HCG, Qual Negative (Negative) Imaging Data Radiologist's impression: ITS Impressions Abdomen/Pelvis CT 07/29/24 14:40 IMPRESSION: Findings suggesting a mild small bowel enteritis, primarily to the left of midline, in the appropriate clinical scenario. Discharge Plan Discharge Clinical Impression: Enteritis Patient Disposition: Home, Self-Care Condition: Stable Instructions: Antibiotic Form, Abdominal Pain (ED), Enteritis (ED) Additional Instructions: you were evaluated in the emergency department for abdominal pain, nausea, vomiting and diarrhea. The CT scan shows enteritis which is inflammation of her small bowel. This is likely due to a viral illness. Please make sure you are drinking plenty of fluids including water, Gatorade and Pedialyte. Take ondansetron as needed for nausea, ibuprofen as needed for pain, Pepcid for heartburn symptoms. Return to the emergency department if you develop a fever, focal abdominal pain, your unable to tolerate food or fluids, or other concerning symptoms. Make sure you times your GI appointment on the . Patient Language: Yi Prescriptions: New ondansetron 4 mg tablet,disintegrating 4 mg PO Q8H Qty: 14 0RF ibuprofen 800 mg tablet 800 mg PO TID PRN (Reason: pain) Qty: 20 0RF famotidine 20 mg tablet 20 mg PO DAILY Qty: 14 0RF No Action ferrous fumarate [Ferrocite] 324 mg (106 mg iron) tablet 324 mg PO AC albuterol sulfate 90 mcg/actuation HFA aerosol inhaler 2 puff inhalation QID PRN (Reason: shortness of breath or wheezing) Qty: 6.7 0RF budesonide-formoterol 160-4.5 mcg/actuation HFA aerosol inhaler 1 puff inhalation ONCE Qty: 10.2 0RF Follow-up/Referrals: Benigno,Chely Cortez MD [Primary Care Provider] -
--- OUTSIDE RECORDS SUMMARY | 2024-07-29 14:17 | XMS_ITS | Encounter Summary ---
Author Organization [facility] Healthcare Address [address] [place] [address] Care Team Providers Care C Software Developer Name Role Phone Chely Pelaez MD Primary Care Provider Encounter Details Date Type Department Care Team (Late st Contact Info) Description 09/05/2023 Orders Only [facility] [address] [place] [address] Scanning, Provider Social History Tobacco Use Types [...] on file Legal Sex Female 3:12 PM CHILD WELFARE COUNSELOR Gender Identity Female 09/18/2021 12:58 PM CDT [...] on filedocumented in this encounter Care Teams C Software Developer Relationship Specialty Start Date End Date Chely Pelaez MD PCP - General Internal Medicine 09/23/21 documented as of this encounter
--- OUTSIDE RECORDS SUMMARY | 2024-07-29 14:17 | XMS_ITS | Referral Summary ---
Author Organization [facility] at the Medical Office Building Address [address] [place] [phone] Care Team Providers Care Cylinder Batcher Name Role Phone Chely Pelaez MD Primary [...] 05/08/2020 Assessment & Plan (05/08/2020 10:19 AM LOCKSTITCH SLEEVE MAKER): Prediabetic. Need Aggressive 25lb weight loss. Recommended aggressive Lifestyle modification and weight loss for improving overall weight related health conditions. Follow up in 1 or 3 months for continuing Lifestyle Medicine education and management visit. Pain in both hands 07/30/2019 Assessment & Plan (07/30/2019 10:27 AM LOCKSTITCH SLEEVE MAKER): Overall Condition: New Diagnosis and Needs more diagnostic info. Treatment: Lab: Rheumatoid Panel. may consider Medical Service Representative in the future. Follow up PRN Encounter [...] months Assessment & Plan (05/08/2020 10:18 AM LOCKSTITCH SLEEVE MAKER): Overall Condition Chronic Condition: Uncontrolled. Treatment: New Medication: Start Phentermine Follow up in 1 month Assessment & Plan (07/24/2019 4:00 PM LOCKSTITCH SLEEVE MAKER): Recommended aggressive Lifestyle modification and weight loss for improving overall weight related health conditions. Follow up in 1 or 3 months for continuing Lifestyle Medicine education and management visit. Irritable bowel syndrome wit h both constipation and diarrhea 07/24/2019 Assessment & Plan (07/30/2019 10:26 AM LOCKSTITCH SLEEVE MAKER): Overall Condition New Diagnosis. Treatment: New Medication: Start on PPI (Omeprazole) 40mg. Follow up in 6 months Chronic low back pain 07/24/2019 Assessment & Plan (07/30/2019 10:25 AM LOCKSTITCH SLEEVE MAKER): Overall Condition Chronic Condition: Uncontrolled and Acute [...] on file Legal Sex Female 3:12 PM LOCKSTITCH SLEEVE MAKER Gender Identity Female 09/18/2021 12:58 PM CDT [...] was last reviewed 2021. Testing performed by: [address] [address] Blood 04/07/2023 5:31 PM CDT 04/07/2023 5:40 PM CDT Chely Pelaez MD LAB BLOOD ORD ERABLES Final Result Performing Organization Address City/[facility] Co de Phone Number [place] [phone] [facility] [place] [address] * (ABNORMAL) Hemoglobin A1c (04/07/2023 5:31 PM CDT) [facility] Signature Hgb A1C 6.5(H) 4.0 - 5.6 % Comment:Testing performed by : [address] [address] Estimated Average Glucose 140 mg/dL KAVON Comment: The ADA recommends reporting an estimated Average Glucose (eAG) with all Hemoglobin A1c results using the equation derived from a study of 507 normal and diabetic adults. Minority populations were underrepresented and children were not included. (Diabetes Care 31:6140-7803, 2008). The eAG is not equivalent to a fasting glucose. Testing performed by: [address] [address] Blood 04/07/2023 5:31 PM CDT 04/07/2023 5:40 PM CDT us Chely Pelaez MD LAB BLOOD ORD ERABLES Final Result Performing Organization Address City/[facility] Co de Phone Number [place] [phone] [facility] Department [place] [address] * Lipid panel (04/07/2023 5:31 PM CDT) [facility] Cholesterol 178 30 - 199 mg/dL Comment: [...] last revised on 2018. Testing performed by: [address] [address] Triglycerides 57 <=149 mg/dL KAVON Comment: Interpretive [...] last revised on 2018. Testing performed by: [address] [address] HDL 68 >=40 mg/dL KAVON Comment: Interpretive [...] last revised on 2018. Testing performed by: [address] [address] LDL, calculated 99 <=129 mg/dL KAVON COLE [...] last revised on 2018. Testing performed by: [address] [address] Non-HDL Cholesterol 110 mg/dL KAVON COLE Comment: [...] last revised on 2018. Testing performed by: [address] [address] Chol/HDL ratio 3 AKVON Comment:Testing performed by : [address] [address] Blood 04/07/2023 5:31 PM CDT 04/07/2023 5:40 PM CDT us Chely Pelaez MD LAB BLOOD ORD ERABLES Final Result KAVON [place] [address] [facility] Department [place] [address] * PAP SMEAR WITH HPV (02/20/2019) Pap smear Normal Historical Provider HEALTH MAINTENANCE Final Result from Last 3 Months or Most Recently Relevant to Health Maintenance Insurance [facility] CORE [facility] CHOICE PLUS [employer]PA Care Teams Cylinder Batcher Relationship Specialty Start Date End Date Chely Pelaez MD PCP - General Internal Medicine 09/23/21
--- OUTSIDE RECORDS SUMMARY | 2024-07-29 14:17 | XMS_ITS | Referral Summary ---
Author Organization [facility] [employer] Address [address] [place] [address] Care Team Providers Care Pump Oiler Name Role Phone Chase Stringer MD Primary Care Provider [phone] Source Comments [facility],non-[facility] Affiliates and Associated Physician Practices is amultiple site organization consisting of ambulatory clinics and hospital sitesin [place], [place], [place] and [place]. This disclosure is being madepursuant to the Care Everywhere program and may not contain all information available regarding this patient. Last updated 18.[facility] [employer] Allergies Active Allergy Reactions Criticality Noted Date [...] mouth once daily Active Vitamin D, Ergocalciferol, 21096 units CAPS Take 1 tablet by mouth [...] st Contact Info) Description 08/13/2024 1:00 PM HIDE SALTER Office Visit [facility] - [address] [phone] Administered Medications Care Teams Pump Oiler Relationship Specialty Start Date End Date Chase Stringer MD [address] [facility] [address] [facility] 20 [place] [address] PCP - General Family Medicine 09/01/16
--- OUTSIDE RECORDS SUMMARY | 2024-07-29 14:17 | XMS_ITS | Clinical Summary ---
Author Organization [facility] Address [address] [place] [address] Care Team Providers Care After School Program Teacher Name Role Phone Chase Stringer MD Primary Care Provider [phone] Source Comments [facility] Affiliates and Associated Physician Practices is amultiple site organization consisting of ambulatory clinics and hospital sitesin [place], [place], [place] and [place]. This disclosure is being madepursuant to the Care Everywhere program and may not contain all information available regarding this patient. Last updated 18.[facility] Allergies Active Allergy Reactions Criticality Noted Date [...] mouth once daily Active Vitamin D, Ergocalciferol, 66768 units CAPS Take 1 tablet by mouth [...] st Contact Info) Description 08/13/2024 1:00 PM HOT BOX CHECKER Office Visit [facility] - [address] [phone] Health Maintenance Due Date Last Done Comments [...] age to complete this topic Care Teams After School Program Teacher Relationship Specialty Start Date End Date Chase Stringer MD [address] [place] [id number] PCP - General Family Medicine 09/01/16
--- OUTSIDE RECORDS SUMMARY | 2024-07-29 14:17 | XMS_ITS | Patient Health Summary ---
Author Organization [facility] Address [address] [place] [address] Care Team Providers Care Bread Pan Greaser Name Role Phone Chase Stringer MD Primary Care Provider [phone] Note from [facility],non-owned Affiliates and Associated Physician Practices is amultiple site organization consisting of ambulatory clinics and hospital sitesin [place], [place], [place] and [place]. This disclosure is being madepursuant to the Care Everywhere program and may not contain all information available regarding this patient. Last updated 18.[facility] Allergies * Tramadol Medications * Be [...] mouth once daily * Vitamin D, Ergocalciferol, 98971 units CAPS Take 1 tablet by mouth [...] SAMPLE S / Unknown 03/09/2019 Sylvie Whitlock APRN-COMPLAINT ANALYST LAB - [place] RE ORDERABLES * (ABNORMAL) STREP A SCREEN (03/21/2017 6:43 PM CDT) Strep A Rapid POCT Positive(A) Negative Strep A Internal Control Present Lot # [id number] Expiration Date 10/06/18 Throat ENTIRE THROAT (SURFACE REGION OF NECK) / Unknown 03/21/2017 6:43 PM CDT Mónica Peres GENERAL INTERNIST-COMPLAINT ANALYST LAB - [place] RE ORDERABLES Care Teams Bread Pan Greaser Relationship Specialty Start Date End Date Chase Stringer MD [address] [facility] [address] [place] [phone] PCP - General Family Medicine 09/01/16
--- OUTSIDE RECORDS SUMMARY | 2024-07-29 14:17 | XMS_ITS | Clinical Summary ---
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 Need Aggressive 25lb weight loss. Recommended aggressive Lifestyle modification and weight loss for improving overall weight related health conditions. Follow up in 1 or 3 months for continuing Lifestyle Medicine education and management visit. Pain in both hands 07/30/2019 Assessment & Plan (07/30/2019 10:27 AM SENIOR CONTROLS ENGINEER): Overall Condition: New Diagnosis and Needs more diagnostic info. Treatment: Lab: Rheumatoid Panel. may consider Electronic Communications Technician in the future. Follow up PRN Encounter [...] months Assessment & Plan (05/08/2020 10:18 AM SENIOR CONTROLS ENGINEER): Overall Condition Chronic Condition: Uncontrolled. Treatment: New Medication: Start Phentermine Follow up in 1 month Assessment & Plan (07/24/2019 4:00 PM SENIOR CONTROLS ENGINEER): Recommended aggressive Lifestyle modification and weight loss for improving overall weight related health conditions. Follow up in 1 or 3 months for continuing Lifestyle Medicine education and management visit. Irritable bowel syndrome wit h both constipation and diarrhea 07/24/2019 Assessment & Plan (07/30/2019 10:26 AM SENIOR CONTROLS ENGINEER): Overall Condition New Diagnosis. Treatment: New Medication: Start on PPI (Omeprazole) 40mg. Follow up in 6 months Chronic low back pain 07/24/2019 Assessment & Plan (07/30/2019 10:25 AM SENIOR CONTROLS ENGINEER): Overall Condition Chronic Condition: Uncontrolled and Acute [...] on file Legal Sex Female 3:12 PM SENIOR CONTROLS ENGINEER Gender Identity Female 09/18/2021 12:58 PM CDT [...] was last reviewed 2021. Testing performed by: [address] [address] Blood 04/07/2023 5:31 PM CDT 04/07/2023 5:40 PM CDT us Chely Pelaez MD LAB BLOOD ORD ERABLES Final Result [facility] [address] [facility] Department of Laboratories [place], [place] [id number] * (ABNORMAL) Hemoglobin A1c (04/07/2023 5:31 PM CDT) [facility] Hgb A1C 6.5(H) 4.0 - 5.6 % Comment:Testing performed by : [address] [address] Estimated Average Glucose 140 mg/dL [facility]ON Comment: The ADA recommends reporting an estimated Average Glucose (eAG) with all Hemoglobin A1c results using the equation derived from a study of 507 normal and diabetic adults. Minority populations were underrepresented and children were not included. (Diabetes Care 31:5385-8259, 2008). The eAG is not equivalent to a fasting glucose. Testing performed by: [address] [address] Blood 04/07/2023 5:31 PM CDT 04/07/2023 5:40 PM CDT us Chely Pelaez MD LAB BLOOD ORD ERABLES Final Result [facility] [address] [facility] [place] [address] * Lipid panel (04/07/2023 5:31 PM CDT) [...] last revised on 2018. Testing performed by: [address] [address] Triglycerides 57 <=149 mg/dL KAVON Comment: Interpretive [...] last revised on 2018. Testing performed by: [address] [address] HDL 68 >=40 mg/dL KAVON Comment: Interpretive [...] last revised on 2018. Testing performed by: [address] [address] LDL, calculated 99 <=129 mg/dL KAVON Comment: [...] last revised on 2018. Testing performed by: [address] [address] Non-HDL Cholesterol 110 mg/dL KAVON Comment: Interpretive [...] last revised on 2018. Testing performed by: [address] [address] Chol/HDL ratio 3 [facility]ON Comment:Testing performed by : [address] [address] Blood 04/07/2023 5:31 PM CDT 04/07/2023 5:40 PM CDT Chely Pelaez MD LAB BLOOD ORD ERABLES Final Result [facility] [address] [facility] [place] [address] * PAP SMEAR WITH HPV (02/20/2019) Pap smear Normal us Historical Provider HEALTH MAINTENANCE Final Result from Last 3 Months or Most Recently Relevant to Health Maintenance Insurance [facility] HMO/PPO Address: [address] [address] [place] [address] IDPA Care Teams Gas Turbine Mechanic Relationship Specialty Start Date End Date Chely Pelaez MD PCP - General Internal Medicine 09/23/21
[2024-07-29] MEDS: ONDANSETRON INJ 4 MG/2 ML VIAL IV PUSH (14:45)
[2024-07-29] MEDS: FAMOTIDINE 20 MG/2 ML VIAL IV PUSH (14:45)
[2024-07-29] MEDS: DICYCLOMINE HCL 10 MG CAPSULE 20 MG PO (14:45)
[2024-07-29] MEDS: KETOROLAC 15 MG/ML VIAL (*BKC) IV PUSH (14:45)
[2024-07-29] MEDS: BELLADONNA ALK/PHENOB ELIX 10 ML, MAG HYDROX/ALUMINUM HYD/SIMETH 30 ML, LIDOCAINE 2% VI... PO (15:05)
[2024-07-29 15:16] VITALS: BP 162/80; PULSE 99; RESP 16; TEMP 36.5; O2SAT 100
== END 2024-07-29 15:18 | disposition home or self-care (01) ==
PROVIDERS: Emergency Medicine; Emergency Provider Physician Assistant; PCP Internal Medicine
DX: K52.9 Noninfective gastroenteritis and colitis, unspecified (principal); J45.909 Unspecified asthma, uncomplicated; D64.9 Anemia, unspecified; M25.9 Joint disorder, unspecified
CPT/HCPCS: 36415; 74177; 80053; 81001; 81025; 83690; 85025; 96374; 96375; 99284; A9270; J1885; J2405; Q9967

== ENCOUNTER 2024-08-03 15:32 | Emergency (ER) | payer OTHER, MEDICAID, BC, SELFPAY ==
[2024-08-03 15:52] VITALS: BP 150/111; PULSE 102; RESP 16; TEMP 37; O2SAT 100
--- NOTE | 2024-08-03 16:33 | ED_ITS ---
HPI - URI/Sore Throat General Chief Complaint: Upper Respiratory Infection Stated Complaint: Sore Throat Time Seen by Provider: 08/03/24 15:35 Source: patient Mode of arrival: ambulatory Limitations: no limitations History of Present Illness HPI Narrative: Patient is a 34-year-old female that presents with sore throat causing pain into ears, neck and shoulders that started 2 days ago. Patient states for the past week she has had cold-like symptoms with congestion and cough. Has taken [id number] medication with no relief. Patient states she has had strep in the past but it was not as painful as this. Related Data Home Medications ?Medication ?Instructions ?Recorded ?Confirmed ?Last Taken ?Type ferrous fumarate 324 mg (106 mg 324 mg PO AC 07/28/23 03/08/24 Unknown History iron) tablet (Ferrocite) Allergies Allergy/AdvReac Type Severity Reaction Status Date / Time tramadol Allergy Unknown Hives Verified 08/03/24 15:34 Review of Systems Review of Systems: All systems reviewed & are unremarkable except as noted in HPI and below Constitutional: Constitutional: Denies chills, Denies fatigue, Denies fever(s), Denies headache(s), Denies malaise and Denies weakness Eyes: Eyes: Denies blurry vision, Denies itchy eyes and Denies loss of vision ENT: Denies otalgia, Denies headache(s), Denies nasal congestion, Denies sinus pain and Reports sore throat Cardiovascular: Cardiovascular: Denies chest pain, Denies irregular heart rh ythm and Denies dyspnea Respiratory: Respiratory: Denies cough and Denies dyspnea Gastrointestinal: Gastrointestinal: Denies abdominal pain, Denies diarrhea, Denies nausea and Denies vomiting Musculoskeletal: Musculoskeletal: Denies back pain, Denies myalgias and Denies arthralgias Integumentary/Breasts: Skin/Breast: Denies pruritus and Denies rash Neurologic: Denies headache(s), Denies loss of vision and Denies weakness Psychiatric: Psychiatric: Reports no additional psychiatric complaints Endocrine: Endocrine: Denies fatigue Allergic/Immunologic: Allergic/Immunologic: Denies itchy eyes PMFSH Past Medical History Medical History History of gonorrhea Anemia Asthma Joint disorder, unspecified Surgical History Surgical History S/P dilation and curettage Family History Family History Grandparent Hypertension Cerebrovascular accident Family history of Alzheimer's disease Family history of coronary artery disease Diabetes mellitus Father Hypertension Patient's father is Other Heart disease Social History Social History Smoking status: Never smoker Second hand tobacco smoke exposure: No Alcohol intake: current Alcohol use details: RARE Substance use: current Substance use type: marijuana Lack of Transportation: No Lack of Food: Never True Current Housing: I Have Housing Concerned About Future Housing: No Difficulty Paying Gas/Electric Bills: No Difficulty Paying for Meds: No Currently Unemployed: No Education: Trade/Vocational Certificate Difficulty w/ Childcare or Family Care: No Living arrangements: with family Occupation/Education: unemployed Gender identity (if verbalized by the patient): Female Sexual Orientation (if Verbalized by the Patient): Straight or Heterosexual Spiritual care concerns: No Comments At time of signature, agree with nursing past medical, surgical, social and family history. There is no relevant family history pertinent to the presenting complaint. Exam Const: General: cooperative, healthy appearing, comfortable, no acute distress and well nourished Nutritional Appearance: well nourished Orientation/consciousness: patient oriented x3 Limitations: no limitations HENMT: Head: normal to inspection, normocephalic and atraumatic Ears: hearing grossly normal bilaterally, external ears normal, TM's normal bilaterally, EAC's normal and no periauricular adenopathy Face/Nose/Sinus: Normal external nose present, Abnormal mucous membranes and turbinates present erythematous bilateral and diffuse, normal facial exam, sinuses nontender and face symmetric Face and sinus: normal facial exam, sinuses nontender and face symmetric Mouth: Yes Normal oral and palatal mucosa present, Yes lip normal, Yes tongue normal, Yes Normal salivary glands and ducts present, Yes oropharynx normal and Yes moist mucous membranes Teeth and gingiva: dentition normal Throat: uvula midline, abnormal tonsil bilateral erythema, exudates and hypertrophy 3+ and posterior oropharynx abnormal erythema Eyes: General: appearance normal, both eyes and all related structures Alignment and Position: alignment normal and position normal Periorbital: periorbital findings normal Eyelids: eyelids normal Pupils: Equal, round and reactive pupils present Neck: Neck: normal visual inspection, full ROM, no lymphadenopathy and supple Chest: Chest palpation & inspection: normal inspection of the chest and normal palpation of entire chest wall Resp: Effort & Inspection: normal respiratory effort and able to speak in complete sentences Auscultation: clear to auscultation bilaterally, no crackles, no rales, no rhonchi and no wheezes Cardio: Rate: tachycardic Rhythm: regular rhythm Heart sounds: S1 normal heart sound present and S2 normal heart sound present GI: Inspection: normal to inspection Skin: General skin exam: normal color and no rashes or lesions noted Neuro: General: patient oriented x3 and moves all extremities Cranial nerves: Yes Equal, round and reactive pupils present Speech: normal speech Gait exam (Neuro): Normal gait present Extrem: General: normal to inspection, full ROM and no edema Psych: Appearance: grossly normal and well kempt Mental Status: mental status grossly normal Speech and movement: Normal speech and movement present Affect: normal affect Attitude: cooperative Thought process: Normal thought process present Course Course Emergency Course: Discharge instructions reviewed with patient, as well as provided in writing per nursing staff. The instructions also include specific and strict return/GO TO THE ER as well as f/u information. All questions have been answered, and the patient deny any further questions with discharge and discharge plan. Portions of this record may have been created with voice recognition software Level of Care: Express Care Visit Vital Signs Vital signs: Vital Signs Temperature 37.0 C 08/03/24 15:52 Pulse Rate 102 H 08/03/24 15:52 Respiratory Rate 16 08/03/24 15:52 Blood Pressure 150/111 H 08/03/24 15:52 Pulse Oximetry 100 08/03/24 15:52 Oxygen Delivery Room Air 08/03/24 15:52 Temperature 37.0 C 08/03/24 15:52 Pulse Rate 102 H 08/03/24 15:52 Respiratory Rate 16 08/03/24 15:52 Blood Pressure 148/98 H 08/03/24 17:05 Pulse Oximetry 100 08/03/24 15:52 Oxygen Delivery Room Air 08/03/24 15:52 Reviewed MDM - URI/Sore Throat MDM Narrative Medical decision making narrative: Pt well hydrated appearing, in no respiratory distress, hemodynamically stable. Recommend supportive care. The patient is stable at time of discharge the clinical impression was discussed and the patient was given the opportunity to ask questions, which were addressed as completely as possible given the information available at present. Anticipatory guidance and return to care precautions were discussed and the importance of primary care follow-up was stressed and encouraged. The patient voiced understanding of the plan, indications to return, and the need for follow-up. Differential diagnosis considered: Woo virus, strep pharyngitis, allergic rhinitis, upper respiratory tract infection, sinusitis, rhinosinusitis, nasopharyngitis. viral pharyngitis, otitis media, otitis externa, otitis effusion, foreign body, cerumen impaction, viral syndrome, and influenza.? Exam findings show no acute concerns or changes; patient is non-toxic appearing and is in no distress.? Patient is appropriate for outpatient treatment and follow- up.? Medical Records Attestation: I reviewed the patient's medical records. Lab Data Attestation: I reviewed the patient's lab results. Labs: Lab Results 08/03/24 Range/Units 16:44 POC Grp A Strep Screen Negative (Negative) Discharge Plan Discharge Clinical Impression: Acute bacterial tonsillitis Patient Disposition: Home, Self-Care Condition: Stable Instructions: Tonsillitis (ED) Additional Instructions: After 24 hours on antibiotics throw tooth brush away and start using a new one. Wash your sheets and cup/water bottle that is used daily. Do not share drinks. Take Motrin alternating with Tylenol for pain and fever alternating every 4 hours. Increase fluids, avoid caffeine. Other symptomatic treatments include: -Antihistamine medication such as Benadryl at night and Zyrtec/Claritin/Ruth during the day can help improve symptoms. -Use Flonase twice a day for 5 days then daily to help reduce the inflammation and dry up your sinuses. -You can also use Sudafed or Mucinex. Be sure to drink plenty of water with these medications at least 8 ounces with every dose and it is important to drink 8 to 10 glasses of water per day. Water is a natural decongestant -Eat and drink things that are easy to swallow, like tea or soup, or popsicles. -Oral rinses such as: Salt water gargles and/or may use topical anesthetic (eg. Chloraseptic spray) or lozenges to relieve dryness or throat pain). -Frequent hand washing or hand needle loom tender is one of the best ways to prevent spread of infection. -Using a vaporizer or humidifier at night will also help thin secretions and help with coughing up phlegm. -Follow up with primary care provider in 3-5 days if condition is not improving - For new or worsening symptoms go directly to the nearest ER Your blood pressure was elevated above 120/80 today at Urgent Care. This puts you above the threshold for follow up visit with a primary care provider. High blood pressure does not usually cause any symptoms, however it may lead to kidney failure, stroke, heart disease just to name a few if untreated . Many people are anxious when seeing a provider or nurse. As a result, you are not diagnosed with hypertension at this time unless your blood pressure is persistently high at two office visits at least one week apart. Some things that can help lower blood pressure are lifestyle modifications, such as light exercise, decreased salt in diet, and weight loss. It is important to follow up with a PCP about this within 1 week. Patient Language: Angolan Prescriptions: New amoxicillin 500 mg capsule 500 mg PO BID 10 Days Qty: 20 0RF No Action ferrous fumarate [Ferrocite] 324 mg (106 mg iron) tablet 324 mg PO AC albuterol sulfate 90 mcg/actuation HFA aerosol inhaler 2 puff inhalation QID PRN (Reason: shortness of breath or wheezing) Qty: 6.7 0RF budesonide-formoterol 160-4.5 mcg/actuation HFA aerosol inhaler 1 puff inhalation ONCE Qty: 10.2 0RF famotidine 20 mg tablet 20 mg PO DAILY Qty: 14 0RF Follow-up/Referrals: Benigno,Chely Cortez MD [Primary Care Provider] - 3 Days Time of Disposition: 16:48
[2024-08-03 16:47] LABS: EDSTREPNEGPOS1 Negative (Negative)
[2024-08-03 17:05] VITALS: BP 148/98
== END 2024-08-03 17:10 | disposition home or self-care (01) ==
PROVIDERS: Emergency Provider Nurse Practitioner Family; PCP Internal Medicine
DX: J03.90 Acute tonsillitis, unspecified (principal)
CPT/HCPCS: 87880; 99213; G0463

== ENCOUNTER 2025-01-17 11:11 | Emergency (ER) | payer OTHER, BC, MEDICAID, SELFPAY ==
--- NOTE | ~2025-01-17 | US_ITS ---
EXAMINATION: US venous doppler LE RT DATE: 01/17/2025 12:33 INDICATION: Right lower limb pain, erythema and swelling TECHNIQUE: Grayscale ultrasound images without and with compression and Doppler ultrasound images of the right lower extremity veins were obtained. COMPARISON: None. FINDINGS: The visualized portions of right common femoral vein, profunda (deep) femoral vein, femoral vein, pop liteal vein, peroneal trunk, posterior tibial veins, peroneal veins and greater saphenous vein outflo w are patent. IMPRESSION: 1. No deep venous thrombosis in the right lower limb. Reviewed, dictated and finalized at location A.
--- OUTSIDE RECORDS SUMMARY | 2025-01-17 11:17 | XMS_ITS | Clinical Summary ---
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 Name Role Phone Chely Pelaez MD Primary Care Provider Allergies Active Allergy Reactions Criticality Noted Date Comments Tramadol Unknown 03/21/2017 Medications ferrous fumarate 325 mg (106 mg iron) tabletIndication s:Anemia, unspecified type Take 1 tablet (325 mg total) by mouth daily with breakfast 90 tablet 3 3 Active omeprazole (PriLOSEC) 40 mg capsule Take 1 capsule (40 mg total) by mouth 2 (two) times a day 60 capsule 3 Active lidocaine (LIDODERM) 5 % 4 Active montelukast (SINGULAIR) 10 mg tablet Take 1 tablet (10 mg total) by mouth nightly 90 tablet 3 4 04/10/20 25 Active albuterol HFA (PROVENTIL HFA,VENTOLIN HFA,PROAIR HFA) 90 mcg/actuation inhalerIndicatio ns:Mild intermittent asthma with exacerbation Inhale 1 puff every 6 (six) hours as needed for shortness of breath 1 each 2 4 Active budesonide-formo teroL (SYMBICORT) 160-4.5 mcg/actuation inhaler Inhale 2 puffs 2 (two) times a day Rinse mouth with water after use. Do not swallow. 10.2 g 3 4 Active escitalopram (LEXAPRO) 10 mg tablet Take 1 tablet (10 mg total) by mouth daily 90 tablet 4 5 Active ferrous sulfate 325 mg (65 mg of elemental iron) tabletIndication s:Iron Deficiency Anemia Take 1 tablet (325 mg total) by mouth daily with breakfast 90 tablet 1 5 Active progesterone (PROMETRIUM) 200 mg capsule Insert 1 capsule (200 mg total) into the vagina daily 30 capsule 1 5 01/16/20 26 Active progesterone (PROMETRIUM) 200 mg capsule Insert 1 capsule (200 mg total) into the vagina daily 30 capsule 1 5 01/16/20 25 Discontin ued(Reord er) Active Problems Problem Noted Date Diagnosed Date Severe obesity 10/29/2024 Body mass index (BMI) 45.0-49.9, adult 5 IFG (impaired fasting glucose) 09/09/2020 Assessment & Plan (09/09/2020 3:03 PM CDT): HbA1C 5.9. Intolerance to Metformin. Stopped Metformin. Numbness and tingling in right hand 09/09/2020 Assessment & Plan (09/09/2020 3:55 PM CDT): Overall Condition New Diagnosis and unknown, but likelt carpal tunnekl. Treatment: Lab: check labs as ordered. Follow up in 1 month Elevated blood sugar 05/08/2020 Assessment & Plan (05/08/2020 10:19 AM PAPER BAGS SEWING MACHINE OPERATOR): Prediabetic. Need Aggressive 25lb weight loss. Recommended aggressive Lifestyle modification and weight loss for improving overall weight related health conditions. Follow up in 1 or 3 months for continuing Lifestyle Medicine education and management visit. Pain in both hands 07/30/2019 Assessment & Plan (07/30/2019 10:27 AM PAPER BAGS SEWING MACHINE OPERATOR): Overall Condition: New Diagnosis and Needs more diagnostic info. Treatment: Lab: Rheumatoid Panel. may consider Sugar Controller in the future. Follow up PRN Encounter [...] months Assessment & Plan (05/08/2020 10:18 AM PAPER BAGS SEWING MACHINE OPERATOR): Overall Condition Chronic Condition: Uncontrolled. Treatment: New Medication: Start Phentermine Follow up in 1 month Assessment & Plan (07/24/2019 4:00 PM PAPER BAGS SEWING MACHINE OPERATOR): Recommended aggressive Lifestyle modification and weight loss for improving overall weight related health conditions. Follow up in 1 or 3 months for continuing Lifestyle Medicine education and management visit. Irritable bowel syndrome wit h both constipation and diarrhea 07/24/2019 Assessment & Plan (07/30/2019 10:26 AM PAPER BAGS SEWING MACHINE OPERATOR): Overall Condition New Diagnosis. Treatment: New Medication: Start on PPI (Omeprazole) 40mg. Follow up in 6 months Chronic low back pain 07/24/2019 Assessment & Plan (07/30/2019 10:25 AM PAPER BAGS SEWING MACHINE OPERATOR): Overall Condition Chronic Condition: Uncontrolled and Acute Flare on Chronic pain. . Treatment: New Medication: Naproxen/Flexeril for two weeks for flare up. Follow up PRN Encounters Date Type Department Care Team Description 01/15/2025 Orders Only [facility] Medical [facility] Obstetrical Gynecology [address] [place] [phone] Jos Donovan MD 01/15/2025 Results Follow-Up [facility] Obstetrical Gynecology [address] [place] [phone] Jos Donovan MD hCG, blood, quantitative, hCG, blood, quantitative, Progesterone 01/12/2025 6:40 AM CDT Lab [facility] Lab [facility] [place] [address] Positive test 01/10/2025 1:25 PM CDT Lab [facility] Lab [address] [place] [address] Positive test 01/10/2025 Telephone [facility] Obstetrical Gynecology [address] [place] [phone] Jos Donovan MD 10/30/2024 Results Follow-Up [facility] Primary Care [address] [place] [phone] Chely Pelaez MD CBC with auto differential, Comprehensive metabolic panel, Lipid panel, Additional followed-up results: 7 10/29/2024 12:10 PM CDT Lab [facility] Lab [address] [place] [id number] Routine general medical examination at a health care facility; Anemia, unspecified type; Controlled type 2 diabetes mellitus without complication, without long-term current use of insulin (HCC) 10/29/2024 11:15 AM CDT Office Visit [facility] Primary [facility] [address] [place] [phone] Chely Pelaez MD Controlled type 2 diabetes mellitus without complication, without long-term current use of insulin (HCC) (Primary Dx); Routine general medical examination at a health care facility; Anemia, unspecified type; Severe obesity (HCC); Body mass index (BMI) 45.0-49.9, adult (HCC); Moderate major depression (HCC); Moderate persistent asthma without complication; Right arm pain from Last 3 Months Immunizations Immunization Administration Dates Next Due Influenza, Trivalent, Preservative Free, Intramu scular 04/10/2024 Influenza, Unspecified 02/28/2023,05/04/2021 PPD TEST 03/09/2019,09/01/2016 Tdap 04/20/2021 Surgical History Surgery Date Site/Laterality Comments DILATION AND CURETTAGE OF UTERUS 03/20/2020 - 04/19/2020 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 [facility]) Medical History Medical History Date Comments Asthma Tubal occlusion right sided per HS - 2022 Family History Medical History Relation Name Comments [...] more points, staff should administer the PHQ-9) 6 10/29/2024 PHQ-9 Answer Date Recorded PHQ-9 Total Score 15 10/29/2024 Comments No Sex and Gender Information Value Date Recorded Sex Assigned at Not on file Legal Sex Female 3:12 PM PAPER BAGS SEWING MACHINE OPERATOR Gender Identity Female 09/18/2021 12:58 PM CDT Sexual Orientation Straight 09/18/2021 12 :58 PM CDT Obstetrics History Para Term AB IAB SAB Ectopic Multiple Livin g Live Births 4 1 1 3 3 1 1 Date Outcome GA Total Labor Labor/2nd/3rd Weight Sex Type Anes PTL Venessa A1 [...] Sign Reading Time Taken Comments Blood Pressure 126/76 10/29/2024 11:20 AM CDT Pulse 85 10/29/2024 11:20 AM CDT Temperature 36.2 C (97.1 F) 10/29/2024 11:20 AM CDT Respiratory Rate 16 04/10/2024 3:43 PM CDT Oxygen Saturation 99% 10/29/2024 11:20 AM CDT Inhaled Oxygen Concentration - - Weight 116.6 kg (257 lb) 10/29/2024 11:20 AM CDT Height 157.5 cm (5' 2) 10/29/2024 11:20 AM CDT Body Mass Index 47.01 10/29/2024 11:20 AM CDT Plan of Treatment Health Maintenance Due Date Last Done Comments Hepatitis C Screening 1989 Dilated Eye Exam 1989 Hepatitis B Screening 2007 Pneumococcal vaccine <65 (1 of 2 - PCV) 01/29/2008 HPV Vaccines (1 - 3-dose SCD M series) 01/29/2016 Covid-19 Vaccine (3 - 2023-2 5 season) 2024 10/21/2020, 09/30/2020 Influenza Vaccine (#1) 2025 , 02/28/2023, 05/04/2021 Foot Exam 04/10/2025 04/10/2024 Hemoglobin A1C 05/01/2025 10/29/2024, 03/20, 09/28/2022, Additional history exists Cervical Cancer Screening 08/14/20252024, 08/14/2024, 02/20/2019 Regular Well Visit/Exam 18-64 08/14/2025, 04/10/2024, 04/07/2023, Additional history exists Albumin Creatinine Ratio, Urine 10/29/2025 Depression Screening 10/29/2025 10/29/2024, 10/29/2024, 04/10/2024, Additional history exists Lipid Panel 10/29/2025 10/29/2024, 03/20, 09/23/2021 eGFR 10/29/2025 10/29/2024, 03/20, 03/10/2022, Additional history exists DTaP/Tdap/Td Vaccine (2 - Td or Tdap) 04/20/2031 04/20/2021 Varicella Vaccines Discontinued Procedures Procedure Name Priority Date/Time Associated Diagnosis Comments HCG, BLOOD, QUANTITATIVE Routine 01/12/2025 6:53 AM CDT Positive test PROGESTERONE Routine 01/10/2025 1:38 PM CDT Positive test HCG, BLOOD, QUANTITATIVE Routine 01/10/2025 1:38 PM CDT Positive test EGFR Routine 10/29/2024 12:18 PM CDT Routine general medical examination at a health care facility DIFFERENTIAL AUTO Routine 10/29/2024 12: 18 PM CDT Routine general medical examination at a health care facility Anemia, unspecified type VITAMIN B12 Routine 10/29/2024 12:18 PM CDT Anemia, unspecified type ALBUMIN CREATININE RATIO, URINE Routine 10/29/2024 12:18 PM CDT Controlled type 2 diabetes mellitus without complication, without long-term current use of insulin (HCC) HEMOGLOBIN A1C Routine 10/29/2024 12:18 PM CDT Controlled type 2 diabetes mellitus without complication, without long-term current use of insulin (HCC) FERRITIN Routine 10/29/2024 12:18 PM CDT Anemia, unspecified type IRON PROFILE W/ IBC Routine 10/29/2024 1 2:18 PM CDT Anemia, unspecified type LIPID PANEL Routine 10/29/2024 12:18 PM CDT Routine general medical examination at a health care facility COMPREHENSIVE METABOLIC PANEL Routine 10/29/2024 12:18 PM CDT Routine general medical examination at a health care facility CBC WITH AUTO DIFFERENTIAL Routine 10/29/2024 12:18 PM CDT Routine general medical examination at a health care facility Anemia, unspecified type HIGH RISK HPV DNA DETECTION WITH GENOTYPING Routine 08/14/2024 1:34 PM PAPER BAGS SEWING MACHINE OPERATOR Cervical cancer screening from Last 3 Months or Most Recently Relevant to Health Maintenance Results * (ABNORMAL) hCG, blood, quantitative (01/12/2025 6:53 AM CDT) hCG, quant 56.9(H) 0.0 - 5.0 IUnits/L Comment: Interpretive Data Male: < 5 IU/L Non- premenopausal Female: <5 IU/L The [place] hCG Beta Quant assay procedure was used. Results from different manufacturers or methods may not be comparable. Serial testing should be performed using the same method. Interpretive Data was last revised on 2023 Testing performed by: [facility], [address] [place] [address]., [id number] Blood 01/12/2025 6:53 AM CDT 01/12/2025 7:19 AM CDT Jos Donovan MD LAB BLOOD ORDERABLES Fin al Result Performing Organization Address [facility] de Phone Number [facility] [employer] [facility] [place] [address] * (ABNORMAL) Progesterone (01/10/2025 1:38 PM CDT) Progesterone 5.7(H) 0.0 - 0.2 ng/mL Comment: Interpretive Data Males: <0.15 ng/mL Females: Follicular <0.20 ng/mL Ovulation <4.1 ng/mL Luteal 4.1 - 14.5 ng/mL 1st Trimester 11.0 - 44.0 ng/mL 2nd Trimester 25.0 - 83.0 ng/mL 3rd Trimester 59.0 - 214.0 ng/mL Postmenopausal <0.13 ng/mL Current interpretive data was last revised 2021. Blood 01/10/2025 1:38 PM CDT 01/10/2025 5:16 PM CDT Jos Donovan MD LAB BLOOD ORDERABLES Fin al Result Performing Organization Address [facility] Co de Phone Number [place] [phone] [facility] [place] [address] * (ABNORMAL) hCG, blood, quantitative (01/10/2025 1:38 PM CDT) hCG, quant 35.6(H) 0.0 - 5.0 IUnits/L Comment: Interpretive Data Male: < 5 IU/L Non- premenopausal Female: <5 IU/L The [place] hCG Beta Quant assay procedure was used. Results from different manufacturers or methods may not be comparable. Serial testing should be performed using the same method. Interpretive Data was last revised on 2023 Testing performed by: [facility], [address] [place] [address]., [id number] Blood 01/10/2025 1:38 PM CDT 01/10/2025 2:07 PM CDT us Jos Donovan MD LAB BLOOD ORDERABLES Jaime andrea Result - Final [facility] [address] [facility] Department [place] [address] * eGFR (10/29/2024 12:18 PM CDT) eGFR >90 >=60 mL/min/1. 73 m2 Comment: Interpretive Data Reference [...] was last reviewed 2021. Testing performed by: [address] [address] Blood 10/29/2024 12:1 8 PM CDT 10/29/2024 12:22 PM CDT Chely Pelaez MD LAB BLOOD ORD ERABLES Final Result [facility] [address] [facility] Department [place] [address] * Differential, auto (10/29/2024 12:18 PM CDT) Neutrophil abs 2.06 1.50 - 6.50 K/cumm Comment:Testing performed by : [address] [address] Imm gran abs 0.01 0.00 - 0.10 K/cumm KAVON Comment:Testing performed by : [address] [address] Lymphocyte abs 1.99 0.80 - 3.30 K/cumm KAVON Comment:Testing performed by : [address] [address] Monocyte abs 0.37 0.20 - 0.80 K/cumm KAVON Comment:Testing performed by : [address] [address] Eosinophil abs 0.06 0.00 - 0.50 K/cumm KAVON Comment:Testing performed by : [address] [address] Basophil abs 0.02 0.00 - 0.10 K/cumm KAVON Comment:Testing performed by : [address] [address] Neutrophil pct 45.8 % K[facility]ON Comment: Interpretive Data Percent cell count reference ranges are not reported, since discordance with absolute values may lead to misinterpretation of CBC data. Current Interpretive Data was last revised on 2017. Testing performed by: [address] [address] Imm gran pct 0.2 % [facility]ON Comment: Interpretive Data Percent cell count reference ranges are not reported, since discordance with absolute values may lead to misinterpretation of CBC data. Current Interpretive Data was last revised on 2017. Testing performed by: [address] [address] Lymphocyte pct 44.1 % [facility] Comment: Interpretive Data Percent cell count reference ranges are not reported, since discordance with absolute values may lead to misinterpretation of CBC data. Current Interpretive Data was last revised on 2017. Testing performed by: [address] [address] Monocyte pct 8.2 % [facility] Comment: Interpretive Data Percent cell count reference ranges are not reported, since discordance with absolute values may lead to misinterpretation of CBC data. Current Interpretive Data was last revised on 2017. Testing performed by: [address] [address] Eosinophil pct 1.3 % [facility] Comment: Interpretive Data Percent cell count reference ranges are not reported, since discordance with absolute values may lead to misinterpretation of CBC data. Current Interpretive Data was last revised on 2017. Testing performed by: [address] [address] Basophil pct 0.4 % [facility] Comment: Interpretive Data Percent cell count reference ranges are not reported, since discordance with absolute values may lead to misinterpretation of CBC data. Current Interpretive Data was last revised on 2017. Testing performed by: [address] [address] Blood 10/29/2024 12:1 8 PM CDT 10/29/2024 12:22 PM CDT us Chely Pelaez MD LAB BLOOD ORD ERABLES Final Result [facility] [address] [facility] Department [place] [address] * Iron profile w/ IBC (10/29/2024 12:18 PM CDT) Iron 76 35 - 145 mcg/dL Comment:Testing performed by : [address] [address] TIBC 360 250 - 400 mcg/dL [facility] Comment:Testing performed by : [address] [address] Transferrin saturation 21 20 - 50 % [facility] Comment:Testing performed by : [address] [address] Blood 10/29/2024 12:1 8 PM CDT 10/29/2024 12:22 PM CDT us Chely Pelaez MD LAB BLOOD ORD ERABLES Final Result [facility] Department [place] [address] * (ABNORMAL) CBC with auto differential (10/29/2024 12:18 PM CDT) Pathologist [facility] WBC 4.51 3.80 - 9.90 K/cumm Comment:Testing performed by : [address] [address] Hgb 10.6(L) 11.9 - 15.5 g/dL [facility] Comment:Testing performed by : [address] [address] Hct 34.4(L) 35.6 - 45.5 % [facility] Comment:Testing performed by : [address] [address] Plt 346 150 - 400 K/cumm [facility] Comment:Testing performed by : [address] [address] MPV 11.2 9.1 - 12.3 fL [facility] Comment:Testing performed by : [address] [address] RBC 4.38 3.90 - 5.20 M/cumm [facility] Comment:Testing performed by : [address] [address] MCV 78.5(L) 81.3 - 96.4 fL [facility] Comment:Testing performed by : [address] [address] MCH 24.2(L) 27.1 - 33.3 pg [facility] Comment:Testing performed by : [address] [address] MCHC 30.8(L) 32.3 - 35.7 g/dL [facility] Comment:Testing performed by : [address] [address] RDW CV 15.6(H) 11.1 - 14.9 % [facility] Comment:Testing performed by : [address] [address] RDW SD 44.7 35.7 - 48.1 fL [facility] Comment:Testing performed by : [address] [address] NRBC abs 0.00 0.00 - 0.01 K/cumm [facility] Comment:Testing performed by : [address] [address] Blood 10/29/2024 12:1 8 PM CDT 10/29/2024 12:22 PM CDT us Chely Pelaez MD LAB BLOOD ORD ERABLES Final Result [facility] [address] [facility] Department [place] [address] * Albumin Creatinine Ratio, Urine (10/29/2024 12:18 PM CDT) Albumin Ur <12.0 mg/L Comment: Interpretive Data No reference range established. Current interpretive data was last revised 2018. Testing performed by: [address] [address] Creatinine Ur 158.5 mg/dL [facility] Comment: Interpretive Data No reference range established. Current interpretive data was last revised 2018. Testing performed by: [address], [address] Albumin Creatinine Ratio, Ur <8 1 - 29 mg/g [facility] Comment:Testing performed by : [address] [address] Urine 10/29/2024 12:1 8 PM CDT 10/29/2024 12:34 PM CDT Chely Pelaez MD LAB URINE ORD ERABLES Final Result Performing Organization Address City/[facility] Co de Phone Number [facility] [address] [place] [address] * (ABNORMAL) Hemoglobin A1c (10/29/2024 12:18 PM CDT) Pathologist [facility] Hgb A1C 6.3(H) 4.0 - 5.6 % Comment:Testing performed by : [address] [address] Estimated Average Glucose 134 mg/dL [facility]ON Comment: The ADA recommends reporting an estimated Average Glucose (eAG) with all Hemoglobin A1c results using the equation derived from a study of 507 normal and diabetic adults. Minority populations were underrepresented and children were not included. (Diabetes Care 31:5688-7690, 2008). The eAG is not equivalent to a fasting glucose. Testing performed by: [address] [address] Blood 10/29/2024 12:1 8 PM CDT 10/29/2024 12:22 PM CDT Chely Pelaez MD LAB BLOOD ORD ERABLES Final Result Performing Organization Address [facility] Co de Phone Number [facility] [employer] [place] [address] * (ABNORMAL) Ferritin (10/29/2024 12:18 PM CDT) Pathologist [facility] Ferritin 12(L) 15 - 150 ng/mL Comment:Testing performed by : [address] [address] Blood 10/29/2024 12:1 8 PM CDT 10/29/2024 12:22 PM CDT Chely Pelaez MD LAB BLOOD ORD ERABLES Final Result Performing Organization Address City/State/[facility] Co de Phone Number [address] [address] * Vitamin B12 (10/29/2024 12:18 PM CDT) Vitamin B12 659 230 - 1,250 pg/mL Comment:Testing performed by : [address] [address] Blood 10/29/2024 12:1 8 PM CDT 10/29/2024 12:22 PM CDT Chely Pelaez MD LAB BLOOD ORD ERABLES Final Result Performing Organization Address City/[facility] Co de Phone Number [address] [address] * Lipid panel (10/29/2024 12:18 PM CDT) Cholesterol 180 30 - 199 mg/dL Comment: Interpretive Data [...] last revised on 2018. Testing performed by: [address] [address] Triglycerides 50 <=149 mg/dL [facility] Comment: Interpretive Data Ages < or = [...] last revised on 2018. Testing performed by: [address] [address] HDL 64 >=40 mg/dL K[facility]ON Comment: Interpretive Data Ages [...] last revised on 2018. Testing performed by: [address] [address] LDL, calculated 106 <=129 mg/dL [facility]ON Comment: Interpretive Data Ages < or = 19 years Acceptable: <110 mg/dL Borderline high: 110-129 mg/dL High: >or= 130 mg/dL Ages > or = 20 years Optimal: <100 mg/dL Near optimal: 100-129 mg/dL Borderline high: 130-159 mg/dL High: >160 mg/dL Calculated using the Rashi LDL-C estimating equation. This equation was implemented on 2024. Prior to this date LDL-C was estimated using the Friedewald equation. Literature References: 1. Expert Panel on Integrated Guidelines for Cardiovascular Health and Risk Reduction in Children and Adolescents. Pediatrics 2011;128:S213 2. NCEP Expert Panel. Circulation 2004;110:227 3. Rashi Cardona al. SANJUANA Cardiol. 2020 October 18;5(5):540-548. doi: 10.1001/jamacardio.2020.0013 Current Interpretive Data was last revised on 2024. Testing performed by: [address] [address] Non-HDL Cholesterol 116 mg/dL [facility] Comment: Interpretive Data Ages [...] last revised on 2018. Testing performed by: [address] [address] Chol/HDL ratio 3 [facility] Comment:Testing performed by : [address] [address] Blood 10/29/2024 12:1 8 PM CDT 10/29/2024 12:22 PM CDT Chely Pelaez MD LAB BLOOD ORD ERABLES Final Result [facility] [address] [facility] Department of Laboratories [place], [place] [id number] * (ABNORMAL) Comprehensive metabolic panel (10/29/2024 12:18 PM CDT) Sodium 138 135 - 145 mmol/L Comment:Testing performed by : [address] [address] Potassium, pl 4.1 3.3 - 4.9 mmol/L [facility] Comment:Testing performed by : [address] [address] Chloride 106 97 - 110 mmol/L [facility] Comment:Testing performed by : [address] [address] CO2 23 22 - 32 mmol/L [facility] Comment:Testing performed by : [address] [address] Anion gap 9 2 - 15 mmol/L [facility]ON Comment:Testing performed by : [address] [address] BUN 10 6 - 25 mg/dL [facility]ON Comment:Testing performed by : [address], [place]., [address] Creatinine 0.50(L) 0.60 - 1.10 mg/dL [facility]AVON Comment:Testing performed by : [address] [address] Glucose 104 70 - 199 mg/dL [facility]AVON Comment: Interpretive Data Fasting glucose >/= 126 mg/dl is diagnostic for diabetes. Fasting is defined as no caloric intake for at least 8 hours. Fasting glucose between 100 mg/dl to 125 mg/dl is diagnostic of prediabetes. In a patient with classic symptoms of hyperglycemia or hyperglycemic crisis, a random glucose >/= 200 mg/dl is diagnostic for diabetes. In the absence of unequivocal hyperglycemia, results should be confirmed by repeat testing. The classification and Diagnosis of Diabetes Diabetes Care 202; 46: S19-S40. Current interpretive data was last revised 2022. Testing performed by: [address] [address] Calcium 9.2 8.5 - 10.3 mg/dL KAVON Comment:Testing performed by : [address] [address] Bilirubin, total 0.2 0.1 - 1.2 mg/dL K[facility]ON Comment:Testing performed by : [address] [address] Protein, pl 7.1 6.5 - 8.5 g/dL K[facility]ON Comment:Testing performed by : [address] [address] Albumin 3.9 3.5 - 5.0 g/dL [facility]ON Comment:Testing performed by : [address] [address] Alk phos 76 40 - 130 Units/L [facility] Comment:Testing performed by : [address] [address] ALT 18 7 - 45 Units/L [facility] Comment:Testing performed by : [facility], [address] [place] [address]., [address] AST 15 10 - 45 Units/L [facility] Comment:Testing performed by : [facility], [address] [place] [address]., [address] Blood 10/29/2024 12:1 8 PM CDT 10/29/2024 12:22 PM CDT us Chely Pelaez MD LAB BLOOD ORD ERABLES Final Result [facility] [address] [facility] Department [place] [address] * High Risk HPV DNA Detection with Genotyping (Molecular component) (08/14/2024 1:34 PM PAPER BAGS SEWING MACHINE OPERATOR) HPV HR 16 Not Detected Not Detected [facility] Comment:Testing performed by : [facility], [address] [place]., [address] HPV HR 18 Not Detected Not Detected [facility] Comment:Testing performed by : [facility], [address] [place]., [address] HPV HR Non 16/18 Not Detected Not Detected [facility] Comment: Interpretive Data Nucleic acid amplification for detection of high-risk Human Papilloma virus (HPV) is performed by the Mariana Loretta 6800 HPV test. This assay specifically detects HPV-16 and HPV-18 genotypes. The following HPV genotypes are detected as high-risk HPV: HPV-31, 33, 35, ,39, 45, 51, 52, 56, 58, 59, 66, and 68. This assay has been approved by the [place] Food and Drug Administration for detection of HPV in cervical specimens collected by a physician using an endocervical brush/spatula or cervical broom and placed in the ThinPrep Pap Test PreservCyt collection containers. The performance characteristics of this test have been verified by the [facility] Molecular Infectious Disease laboratory. Correlate with separately reported cytology results, as applicable. Interpretive data last revised 22 Testing performed by: [facility], [address] [facility], [facility], [place]., [address] Endocervical 08/14/2024 1:34 PM PAPER BAGS SEWING MACHINE OPERATOR 08/15/2024 9:24 AM PAPER BAGS SEWING MACHINE OPERATOR Narrative [facility] - 08/16/2024 2:49 AM PAPER BAGS SEWING MACHINE OPERATOR Clinical history and diagnosis->routine Number of vials->1 Testing type->Screening Last menstrual period (date if known)->07/31/2024 Jos Donovan MD LAB BODY FLUIDS AND STOO LS ORDERABLES Final Result [facility] [address] [facility] Department of [employer] [place] [address] [facility] from Last 3 Months or Most Recently Relevant to Health Maintenance Insurance [facility] CORE [facility] CORE [facility] CHOICE [facility] HMO/PPO Address: [address] [address] [place] [address] [employer]PA BLUE ACCESS OOS Care Teams Gas Refrigerator Servicer Relationship Specialty Start Date End Date Chely Pelaez MD PCP - General Internal Medicine 09/23/21
--- OUTSIDE RECORDS SUMMARY | 2025-01-17 11:17 | XMS_ITS | Clinical Summary ---
Author Organization [facility] Exacter Address [address] [place] [address] Care Team Providers Care Aircraft Seat Upholsterer Name Role Phone Chase Stringer MD Primary Care Provider Source Comments [facility] Affiliates and Associated Physician Practices is amultiple site organization consisting of ambulatory clinics and hospital sitesin [place], [place], [place] and [place]. This disclosure is being madepursuant to the Care Everywhere program and may not contain all information available regarding this patient. Last updated 18.[facility] Ex[facility] Allergies Active Allergy Reactions Criticality Noted Date Comments Tramadol 03/21/2017 Medications * Be aware that medications may not be up to date on this document. Alwaysverify current medications with the patient. predniSONE (DELTASONE) 20 MG tabletIndication s:Acute Asthmatic Bronchitis Take 1 (one) tablet by mouth once daily Reasons: Acute Asthmatic Bronchitis Active Vit-DSS-Fe Fum-FA ( vitamin with iron) tablet Take 1 (one) tablet by mouth once daily Active albuterol HFA (Proventil; Ventolin; Proair) 108 (90 Base) MCG/ACT inhaler Inhale 2 (two) puffs by mouth every 6 hours as needed Active budesonide-formo terol (Symbicort) 160-4.5 MCG/ACT inhaler Inhale 2 (two) puffs by mouth 2 times daily 4 Active Ferrocite 324 MG tablet Take 1 (one) tablet by mouth daily with breakfast 4 Active linaCLOtide (Linzess) 290 MCG capsuleIndicatio ns:Chronic Idiopathic Constipation Take 1 (one) capsule by mouth daily before breakfast Take on an empty stomach at least 30 minutes prior to first meal of the day. Reasons: Chronic Constipation of Unknown Cause 30 capsule 2 5 Active omeprazole (PriLOSEC) 20 MG capsule Take 1 (one) capsule by mouth 2 times daily, before breakfast and supper 60 capsule 3 5 Active Active Problems Problem Noted Date Diagnosed Date IFG (impaired fasting glucose) 09/09/2020 Numbness and tingling in right hand 09/09/2020 Elevated blood sugar 05/08/2020 Pain in both hands 07/30/2019 Chronic low back pain 07/24/2019 Class 3 severe obesity due t o excess calories without serious comorbidity with body mass index (BMI) of 45.0 to 49.9 in adult 07/24/2019 Encounter for annual health examination 07/24/19 20 Irritable bowel syndrome wit h both constipation and diarrhea 07/24/2019 Encounters Date Type Department Care Team Description 01/09/2025 Travel 11/19/2024 1:30 PM CDT Office Visit [facility] [address] [place] [phone] Unknown, Provider Morbid obesity (HCC) (Primary Dx); Chronic constipation 11/19/2024 Telephone [facility] [address] [place] [phone] Blanche Bills PA-C Medication Prior Auth Request 11/19/2024 Travel from Last 3 Months Social History Tobacco Use Types Packs/Day Years Used Date Smoking Tobacco: Former Smokeless Tobacco: Never Tobacco Cessation:Counseling Given: Not Answered Alcohol Use Standard Drinks/Week Comments Yes 0 (1 standard drink = 0.6 oz pur e alcohol) socially Comments No Sex and Gender Information Value Date Recorded Sex Assigned at Female 12/23/2022 1:23 PM CDT Legal Sex Female 6:32 AM STRAW HAT BRUSHER Gender Identity Female 12/23/2022 1:23 PM CDT Sexual Orientation Straight 12/23/2022 1: 23 PM CDT Last Filed Vital Signs Vital Sign Reading Time Taken Comments Blood Pressure 134/80 08/13/2024 1:05 PM STRAW HAT BRUSHER Pulse 76 08/13/2024 1:05 PM STRAW HAT BRUSHER Temperature 36.3 C (97.4 F) 08/13/2024 1:05 PM STRAW HAT BRUSHER Respiratory Rate 16 03/21/2017 6:16 PM CDT Oxygen Saturation 100% 08/13/2024 1:05 PM STRAW HAT BRUSHER Inhaled Oxygen Concentration - - Weight 117.9 kg (260 lb) 08/13/2024 1:05 PM STRAW HAT BRUSHER Height 154.9 cm (5' 1) 08/13/2024 1:05 PM STRAW HAT BRUSHER Body Mass Index 49.13 08/13/2024 1:05 PM STRAW HAT BRUSHER Plan of Treatment Upcoming Encounters Date Type Department Care Team (Late st Contact Info) Description 02/06/2025 2:30 PM CDT Office Visit [facility] - [address] [phone] Glen Bernal III, MD [address] [place] [phone] 03/04/2025 2:00 PM CDT Office Visit [facility] - [address] [phone] Health Maintenance Due Date Last Done Comments HIV SCREENING 01/29/2004 HEPATITIS C SCREENING 01/24/2007 DTAP/TDAP/TD VACCINES (1 - Tdap) 01/29/2008 HEPATITIS B VACCINE (1 of 3 - 19+ 3-dose series) 01/29/2008 PAP SMEAR 2010 HPV VACCINE (1 - 3-dose SCDM series) 01/29/2016 COVID-19 VACCINE (3 - 2023-2 5 season) 2024 10/21/2020, 09/30/2020 DEPRESSION SCREENING 06/20/2024 INFLUENZA VACCINE (#1) 2025 , 02/28/2023, 05/04/2021 ZOSTER VACCINE (1 of 2) 2039 HIB VACCINE Aged Out No longer eligi ble based on patient's age to complete this topic MENINGOCOCCAL (Group B) VACCINE SHARED DECISION-MAKING Aged Out No longer eligible based on patient's age to complete this topic MENINGOCOCCAL GROUPS A/C/Y/W VACCINE Aged Out No longer eligible b ased on patient's age to complete this topic PNEUMOCOCCAL VACCINE Aged Out No long er eligible based on patient's age to complete this topic Insurance MEDICAID - [facility] Care Teams Aircraft Seat Upholsterer Relationship Specialty Start Date End Date Chase Stringer MD [address] [facility] [address] [place] [phone] PCP - General Family Medicine 09/01/16
--- OUTSIDE RECORDS SUMMARY | 2025-01-17 11:17 | XMS_ITS | Encounter Summary ---
Author Organization [facility] Healthcare Address [address] [place] [id number] Care Team Providers Care German Teacher Name Role Phone Chely Pelaez MD Primary Care Provider Encounter Details Date Type Department Care Team (Latest Contact Info) Description 01/15/2025 Results Follow-Up [facility] Medical Group Obstetrical Gynecology [address] [phone] Jos Donovan MD [address] [place] [phone] hCG, blood, quantitative, hCG, blood, quantitative, Progesterone Social History Tobacco Use Types Packs/Day Years [...] on file Legal Sex Female 3:12 PM AUTOMOBILE LOCATOR Gender Identity Female 09/18/2021 12:58 PM CDT Sexual Orientation Straight 09/18/2021 12 :58 PM CDT documented as of this encounter Plan of Treatment Not on file documented as of this encounter Visit Diagnoses Not on filedocumented in this encounter Care Teams German Teacher Relationship Specialty Start Date End Date Chely Pelaez MD PCP - General Internal Medicine 09/23/21 documented as of this encounter
--- OUTSIDE RECORDS SUMMARY | 2025-01-17 11:18 | XMS_ITS | Referral Summary ---
Author Organization [facility] at the Medical Office Building Address [address] [place] [phone] Care Team Providers Care Renal Dietitian Name Role Phone Chely Pelaez MD Primary Care Provider Encounters Date Type Department Care Team Description 01/15/2025 Orders Only [facility] [address] [place] [phone] Jos Donovan MD 01/15/2025 Results Follow-Up [facility] [address] [place] [phone] Jos Donovan MD hCG, blood, quantitative, hCG, blood, quantitative, Progesterone 01/12/2025 6:40 AM CDT Lab [facility] [address] [place] [phone] Positive test 01/10/2025 1:25 PM CDT Lab [facility] [address] [place] [phone] Positive test 01/10/2025 Telephone [facility] [address] [place] [phone] Jos Donovan MD 10/30/2024 Results Follow-Up [facility] [address] [place] [phone] Chely Pelaez MD CBC with auto differential, Comprehensive metabolic panel, Lipid panel, Additional followed-up results: 7 10/29/2024 12:10 PM CDT Lab [facility] [address] [place] [address] Routine general medical examination at a health care facility; Anemia, unspecified type; Controlled type 2 diabetes mellitus without complication, without long-term current use of insulin (HCC) 10/29/2024 11:15 AM CDT Office Visit [facility] [address] [place] [phone] Chely Pelaez MD Controlled type 2 diabetes mellitus without complication, without long-term current use of insulin (HCC) (Primary Dx); Routine general medical examination at a health care facility; Anemia, unspecified type; Severe obesity (HCC); Body mass index (BMI) 45.0-49.9, adult (HCC); Moderate major depression (HCC); Moderate persistent asthma without complication; Right arm pain from Last 3 Months Allergies Active Allergy Reactions Criticality Noted Date [...] Assessment & Plan (05/08/2020 10:19 AM SENIOR ENLISTED ADVISOR): Prediabetic. Need Aggressive 25lb weight loss. Recommended aggressive Lifestyle modification and weight loss for improving overall weight related health conditions. Follow up in 1 or 3 months for continuing Lifestyle Medicine education and management visit. Pain in both hands 07/30/2019 Assessment & Plan (07/30/2019 10:27 AM SENIOR ENLISTED ADVISOR): Overall Condition: New Diagnosis and Needs more diagnostic info. Treatment: Lab: Rheumatoid Panel. may consider Body Painter in the future. Follow up PRN Encounter [...] Assessment & Plan (05/08/2020 10:18 AM SENIOR ENLISTED ADVISOR): Overall Condition Chronic Condition: Uncontrolled. Treatment: New Medication: Start Phentermine Follow up in 1 month Assessment & Plan (07/24/2019 4:00 PM SENIOR ENLISTED ADVISOR): Recommended aggressive Lifestyle modification and weight loss for improving overall weight related health conditions. Follow up in 1 or 3 months for continuing Lifestyle Medicine education and management visit. Irritable bowel syndrome wit h both constipation and diarrhea 07/24/2019 Assessment & Plan (07/30/2019 10:26 AM SENIOR ENLISTED ADVISOR): Overall Condition New Diagnosis. Treatment: New Medication: Start on PPI (Omeprazole) 40mg. Follow up in 6 months Chronic low back pain 07/24/2019 Assessment & Plan (07/30/2019 10:25 AM SENIOR ENLISTED ADVISOR): Overall Condition Chronic Condition: Uncontrolled and Acute Flare on Chronic pain. . Treatment: New Medication: Naproxen/Flexeril for two weeks for flare up. Follow up PRN Immunizations Immunization Administration Dates Next Due Influenza, [...] file Legal Sex Female 3:12 PM SENIOR ENLISTED ADVISOR Gender Identity Female 09/18/2021 12:58 PM CDT [...] 10/29/2024 11:20 AM CDT Plan of Treatment Not on file [...] DETECTION WITH GENOTYPING Routine 08/14/2024 1:34 PM SENIOR ENLISTED ADVISOR Cervical cancer screening from Last 3 Months [...] last revised on 2023 Testing performed by: [facility], [address] [place] [address], [place]., [address] Blood 01/12/2025 6:53 AM CDT 01/12/2025 7:19 AM CDT Jos Donovan MD LAB BLOOD ORDERABLES Fin al Result Performing Organization Address [facility] de Phone Number [address] [place] [address] * (ABNORMAL) Progesterone (01/10/2025 1:38 PM CDT) [...] ORDERABLES Fin al Result Performing Organization Address [facility] de Phone Number [address] [place] [address] * (ABNORMAL) hCG, blood, quantitative (01/10/2025 1:38 PM CDT) Pathologist [facility] hCG, quant 35.6(H) 0.0 - 5.0 IUnits/L Comment: Interpretive Data Male: < 5 IU/L Non- premenopausal Female: <5 IU/L The [place] hCG Beta Quant assay procedure was used. Results from different manufacturers or methods may not be comparable. Serial testing should be performed using the same method. Interpretive Data was last revised on 2023 Testing performed by: [address] [address] Blood 01/10/2025 1:38 PM CDT 01/10/2025 2:07 PM CDT us Jos Donovan MD LAB BLOOD ORDERABLES Jaime andrea Result - Final Performing Organization Address [facility] Co de Phone Number KAVON [address] [place] [address] * eGFR (10/29/2024 12:18 PM CDT) eGFR [...] was last reviewed 2021. Testing performed by: [facility], [address] [place] [address]., [address] Blood 10/29/2024 12:1 8 PM CDT 10/29/2024 12:22 PM CDT us Chely Pelaez MD LAB BLOOD ORD ERABLES Final Result Performing Organization Address City/[facility]/ZIP Co de Phone Number K[facility]ON [facility] [place] [address] * Differential, auto (10/29/2024 12:18 PM CDT) Neutrophil abs 2.06 1.50 - 6.50 K/cumm Comment:Testing performed by : [address] [address] Imm gran abs 0.01 0.00 - 0.10 K/cumm KAVON Comment:Testing performed by : [address] [address] Lymphocyte abs 1.99 0.80 - 3.30 K/cumm [facility] Comment:Testing performed by : [address] [address] Monocyte abs 0.37 0.20 - 0.80 K/cumm [facility] Comment:Testing performed by : [address] [address] Eosinophil abs 0.06 0.00 - 0.50 K/cumm [facility] Comment:Testing performed by : [address] [address] Basophil abs 0.02 0.00 - 0.10 K/cumm [facility] Comment:Testing performed by : [address] [address] Neutrophil pct 45.8 % [facility] Comment: Interpretive Data Percent cell count reference ranges are not reported, since discordance with absolute values may lead to misinterpretation of CBC data. Current Interpretive Data was last revised on 2017. Testing performed by: [address] [address] Imm gran pct 0.2 % [facility] Comment: Interpretive Data Percent cell count reference ranges are not reported, since discordance with absolute values may lead to misinterpretation of CBC data. Current Interpretive Data was last revised on 2017. Testing performed by: [address] [address] Lymphocyte pct 44.1 % [facility] Comment: Interpretive Data Percent cell count reference ranges are not reported, since discordance with absolute values may lead to misinterpretation of CBC data. Current Interpretive Data was last revised on 2017. Testing performed by: [address] [address] Monocyte pct 8.2 % [facility]ON Comment: Interpretive Data Percent cell count reference ranges are not reported, since discordance with absolute values may lead to misinterpretation of CBC data. Current Interpretive Data was last revised on 2017. Testing performed by: [address] [address] Eosinophil pct 1.3 % [facility] Comment: Interpretive Data Percent cell count reference ranges are not reported, since discordance with absolute values may lead to misinterpretation of CBC data. Current Interpretive Data was last revised on 2017. Testing performed by: [address] [address] Basophil pct 0.4 % [facility] Comment: Interpretive Data Percent cell count reference ranges are not reported, since discordance with absolute values may lead to misinterpretation of CBC data. Current Interpretive Data was last revised on 2017. Testing performed by: [address] [address] Blood 10/29/2024 12:1 8 PM CDT 10/29/2024 12:22 PM CDT us Chely Pelaez MD LAB BLOOD ORD ERABLES Final Result [facility] [address] [facility] Department [place] [address] * Iron profile w/ IBC (10/29/2024 12:18 PM CDT) Iron 76 35 - 145 mcg/dL Comment:Testing performed by : [address] [address] TIBC 360 250 - 400 mcg/dL [facility]LE Comment:Testing performed by : [address] [address] Transferrin saturation 21 20 - 50 % K[facility]ON Comment:Testing performed by : [address] [address] Blood 10/29/2024 12:1 8 PM CDT 10/29/2024 12:22 PM CDT us Chely Pelaez MD LAB BLOOD ORD ERABLES Final Result [facility] [address] [facility] Department [place] [address] * (ABNORMAL) CBC with auto differential (10/29/2024 12:18 PM CDT) Pathologist [facility] WBC 4.51 3.80 - 9.90 K/cumm Comment:Testing performed by : [address] [address] Hgb 10.6(L) 11.9 - 15.5 g/dL K[facility]ON Comment:Testing performed by : [address] [address] Hct 34.4(L) 35.6 - 45.5 % K[facility]ON Comment:Testing performed by : [address] [address] Plt 346 150 - 400 K/cumm KAVON Comment:Testing performed by : [address] [address] MPV 11.2 9.1 - 12.3 fL [facility]ON Comment:Testing performed by : [address] [address] RBC 4.38 3.90 - 5.20 M/cumm [facility]ON Comment:Testing performed by : [address] [address] MCV 78.5(L) 81.3 - 96.4 fL [facility]ON Comment:Testing performed by : [address] [address] MCH 24.2(L) 27.1 - 33.3 pg KAVON Comment:Testing performed by : [address] [address] MCHC 30.8(L) 32.3 - 35.7 g/dL K[facility]ON Comment:Testing performed by : [address] [address] RDW CV 15.6(H) 11.1 - 14.9 % [facility]LE Comment:Testing performed by : [address] [address] RDW SD 44.7 35.7 - 48.1 fL [facility] Comment:Testing performed by : [address] [address] NRBC abs 0.00 0.00 - 0.01 K/cumm [facility] Comment:Testing performed by : [address] [address] Blood 10/29/2024 12:1 8 PM CDT 10/29/2024 12:22 PM CDT us Chely Pelaez MD LAB BLOOD ORD ERABLES Final Result [facility] [address] [facility] Department [place] [address] * Albumin Creatinine Ratio, Urine (10/29/2024 12:18 PM CDT) Albumin Ur <12.0 mg/L Comment: Interpretive Data No reference range established. Current interpretive data was last revised 2018. Testing performed by: [address] [address] Creatinine Ur 158.5 mg/dL [facility] Comment: Interpretive Data No reference range established. Current interpretive data was last revised 2018. Testing performed by: [address] [address] Albumin Creatinine Ratio, Ur <8 1 - 29 mg/g [facility]LE Comment:Testing performed by : [address] [address] Urine 10/29/2024 12:1 8 PM CDT 10/29/2024 12:34 PM CDT us Chely Pelaez MD LAB URINE ORD ERABLES Final Result Performing Organization Address City/[facility]/ZIP Co de Phone Number KAVON [address] [address] * (ABNORMAL) Hemoglobin A1c (10/29/2024 12:18 PM CDT) Hgb A1C 6.3(H) 4.0 - 5.6 % Comment:Testing performed by : [address] [address] Estimated Average Glucose 134 mg/dL KAVON Comment: The ADA recommends reporting an estimated Average Glucose (eAG) with all Hemoglobin A1c results using the equation derived from a study of 507 normal and diabetic adults. Minority populations were underrepresented and children were not included. (Diabetes Care 31:4988-2386, 2008). The eAG is not equivalent to a fasting glucose. Testing performed by: [address] [address] Blood 10/29/2024 12:1 8 PM CDT 10/29/2024 12:22 PM CDT us Chely Pelaez MD LAB BLOOD ORD ERABLES Final Result Performing Organization Address [facility] Co de Phone Number [id number] [address] * (ABNORMAL) Ferritin (10/29/2024 12:18 PM CDT) Ferritin 12(L) 15 - 150 ng/mL Comment:Testing performed by : [address] [address] Blood 10/29/2024 12:1 8 PM CDT 10/29/2024 12:22 PM CDT Chely Pelaez MD LAB BLOOD ORD ERABLES Final Result Performing Organization Address City/[facility]/ZIP Co de Phone Number [place] [address] [place] [address] * Vitamin B12 (10/29/2024 12:18 PM CDT) Vitamin B12 659 230 - 1,250 pg/mL Comment:Testing performed by : [facility], [address] [place] [address]., [address] Blood 10/29/2024 12:1 8 PM CDT 10/29/2024 12:22 PM CDT us Chely Pelaez MD LAB BLOOD ORD ERABLES Final Result [facility] [address] [facility] Department [place] [address] * Lipid panel (10/29/2024 12:18 PM CDT) [...] last revised on 2018. Testing performed by: [facility], [address] [place] [address]., [address] Triglycerides 50 <=149 mg/dL KAVON Comment: Interpretive Data Ages [...] last revised on 2018. Testing performed by: [address] [address] HDL 64 >=40 mg/dL KAVON Comment: Interpretive [...] last revised on 2018. Testing performed by: [address] [address] LDL, calculated 106 <=129 mg/dL KAVON Comment: [...] last revised on 2024. Testing performed by: [address] [address] Non-HDL Cholesterol 116 mg/dL KAVON Comment: Interpretive Data Ages < [...] last revised on 2018. Testing performed by: [address] [address] Chol/HDL ratio 3 CERNER Comment:Testing performed by : [address] [address] Blood 10/29/2024 12:1 8 PM CDT 10/29/2024 12:22 PM CDT Chely Pelaez MD LAB BLOOD ORD ERABLES Final Result [facility] [address] [facility] Department [place] [address] * (ABNORMAL) Comprehensive metabolic panel (10/29/2024 12:18 PM CDT) Sodium 138 135 - 145 mmol/L Comment:Testing performed by : [address] [address] Potassium, pl 4.1 3.3 - 4.9 mmol/L KAVON Comment:Testing performed by : [address] [address] Chloride 106 97 - 110 mmol/L KAVON Comment:Testing performed by : [address] [address] CO2 23 22 - 32 mmol/L KAVON Comment:Testing performed by : [address] [address] Anion gap 9 2 - 15 mmol/L KAVON Comment:Testing performed by : [address] [address] BUN 10 6 - 25 mg/dL KAVON Comment:Testing performed by : [address] [address] Creatinine 0.50(L) 0.60 - 1.10 mg/dL KAVON Comment:Testing performed by : [address] [address] Glucose 104 70 - 199 mg/dL KAVON [...] classification and Diagnosis of Diabetes Diabetes Care 2021; 46: S19-S40. Current interpretive data was last revised 2022. Testing performed by: [address] [address] Calcium 9.2 8.5 - 10.3 mg/dL KAVON Comment:Testing performed by : [address] [address] Bilirubin, total 0.2 0.1 - 1.2 mg/dL KAVON Comment:Testing performed by : [address] [address] Protein, pl 7.1 6.5 - 8.5 g/dL K[facility]ON Comment:Testing performed by : [address] [address] Albumin 3.9 3.5 - 5.0 g/dL K[facility]ON Comment:Testing performed by : [address] [address] Alk phos 76 40 - 130 Units/L KAVON Comment:Testing performed by : [address] [address] ALT 18 7 - 45 Units/L K[facility]ON Comment:Testing performed by : [address] [address] AST 15 10 - 45 Units/L [facility]ON Comment:Testing performed by : [address] [address] Blood 10/29/2024 12:1 8 PM CDT 10/29/2024 12:22 PM CDT us Chely Pelaez MD LAB BLOOD ORD ERABLES Final Result [facility] [address] [facility] Department [place] [address] * High Risk HPV DNA Detection with Genotyping (Molecular component) (08/14/2024 1:34 PM SENIOR ENLISTED ADVISOR) HPV HR 16 Not Detected Not Detected [facility] Comment:Testing performed by : [facility], [address] [place]., [address] HPV HR 18 Not Detected Not Detected [facility] COLE Comment:Testing performed by : [facility], [address] [place]., [address] HPV HR Non 16/18 Not Detected Not [...] this test have been verified by the [facility] Molecular Infectious Disease laboratory. Correlate with separately reported cytology results, as applicable. Interpretive data last revised 22 Testing performed by: [facility], [address] [place]., [address] Endocervical 08/14/2024 1:34 PM SENIOR ENLISTED ADVISOR 08/15/2024 9:24 AM SENIOR ENLISTED ADVISOR Narrative KAVON - 08/16/2024 2:49 AM SENIOR ENLISTED ADVISOR Clinical history and diagnosis->routine Number of vials->1 Testing type->Screening Last menstrual period (date if known)->07/31/2024 Jos Donovan MD LAB BODY FLUIDS AND STOO LS ORDERABLES Final Result [facility] [address] [facility] Department of Laboratories [place] [phone] BJ from Last 3 Months or Most Recently Relevant to Health Maintenance Insurance [facility] CHOICE PLUS IDPA BLUE ACCESS OOS Member Subscriber Plan / Payer (Ef fective 2024-Present) Name:Lida Brookscaio Lanza Member ID:[id number] Relation to Subscriber:Spouse Name:Nimesh Brooks Subscriber ID:[id number] Date of :1987 (Home) Address: [address] [place] [address] [address] [place] [address] Payer ID:[id number] (NAIC) Type:BC ALLIANCE Address: [address] [place] [id number] Care Teams Renal Dietitian Relationship Specialty Start Date End Date Chely Pelaez MD PCP - General Internal Medicine 09/23/21
[2025-01-17 11:19] VITALS: BP 140/86; PULSE 97; RESP 16; TEMP 36.4; O2SAT 100
[2025-01-17 12:04] VITALS: BP 136/90; PULSE 96; RESP 16; TEMP 36.6; O2SAT 100
--- NOTE | 2025-01-17 12:45 | ED_ITS ---
HPI - Extremity Problem General Chief complaint: Extremity Problem,Nontraumatic Stated complaint: SWELLING TO LEGS, 5WKS PREG Time Seen by Provider: 01/17/25 12:01 History of Present Illness HPI Narrative: Patient is 5 weeks by dates, desired , started having some lower extremity swelling and discomfort, sent here by OBGYN. No history of blood clots. Right greater than left Related Data Home Medications ?Medication ?Instructions ?Recorded ?Confirmed ?Last Taken ?Type ferrous fumarate 324 mg (106 mg 324 mg PO AC 07/28/23 03/08/24 Unknown History iron) tablet (Ferrocite) Allergies Allergy/AdvReac Type Severity Reaction Status Date / Time tramadol Allergy Unknown Hives Verified 01/17/25 11:21 Review of Systems 2 Review of Systems: All systems reviewed & are unremarkable except as noted in HPI and below PMFSH Past Medical History Medical History History of gonorrhea Anemia Asthma Joint disorder, unspecified Surgical History Surgical History S/P dilation and curettage Family History Family History Grandparent Hypertension Cerebrovascular accident Family history of Alzheimer's disease Family history of coronary artery disease Diabetes mellitus Father Hypertension Patient's father is Other Heart disease Social History Social History Smoking status: Never smoker Second hand tobacco smoke exposure: No Alcohol intake: current Alcohol use details: RARE Substance use: current Substance use type: marijuana Lack of Transportation: No Lack of Food: Never True Current Housing: I Have Housing Concerned About Future Housing: No Difficulty Paying Gas/Electric Bills: No Difficulty Paying for Meds: No Currently Unemployed: No Education: Trade/Vocational Certificate Difficulty w/ Childcare or Family Care: No Living arrangements: with family Occupation/Education: unemployed Gender identity (if verbalized by the patient): Female Sexual Orientation (if Verbalized by the Patient): Straight or Heterosexual Spiritual care concerns: No Exam 2 Narrative: EXAMINATION OF ORGAN SYSTEMS/BODY AREAS: Constitutional: Vital signs per nursing GENERAL:[No acute distress, non-toxic appearing.] HEAD: Normal with no signs of head trauma. EYES: EOMI, conjunctiva normal ENT: Hearing grossly intact LUNGS: Nonlabored breathing. HEART: [Regular rate and rhythm] ABD: [Soft], [nontender to palpation] EXT: Normal range of motion, no discoloration to the leg, no significant tenderness palpation of either extremity SKIN: [No rashes or lesions.] NEURO: [Alert and oriented x 3. No gross focal sensory or strength deficits.] PSYCH: Normal affect Course Vital Signs Vital signs: Vital Signs Temperature 97.5 F L 01/17/25 11:19 Pulse Rate 97 01/17/25 11:19 Respiratory Rate 16 01/17/25 11:19 Blood Pressure 140/86 01/17/25 11:19 Pulse Oximetry 100 01/17/25 11:19 Temperature 98.1 F 01/17/25 14:07 Pulse Rate 82 01/17/25 14:07 Respiratory Rate 16 01/17/25 14:07 Blood Pressure 121/84 01/17/25 14:07 Pulse Oximetry 100 01/17/25 14:07 Oxygen Delivery Room Air 01/17/25 12:04 MDM - Extremity (Nontraumatic) MDM Narrative Medical decision making narrative: Patient presents here with concern for some swelling in her legs, she is 1 month . Well-appearing here no distress, ultrasound thankfully does not show any blood clot. I did obtain basic labs and thankfully she has normal LFTs, creatinine, BNP. She has no chest pain, shortness of breath, or anything else concerning. Findings discussed with patient, she will follow-up with her OBGYN. Lab Data 01/17/25 12:47 01/17/25 12:47 Labs: Lab Results 01/17/25 Range/Units 12:47 WBC 6.1 (4.5-10.0) K/mm3 RBC 4.59 (4.2-5.4) M/mm3 Hgb 11.7 L (12.0-15.0) g/dL Hct 37.8 (37.0-47.0) % MCV 82.4 (80-100) fl MCH 25.5 L (26-34) pg MCHC 31.0 L (32-36) g/dl RDW 16.0 H (11.5-14.5) % Plt Count 355 (150-375) k/mm3 MPV 10.7 H (7.4-10.4) fl Immature Gran % (Auto) 0.0 (0-0.5) % Neut % (Auto) 55.8 (45.5-73.1) % Lymph % (Auto) 35.8 (18.3-44.2) % [place] % (Auto) 7.2 (2.6-8.5) % Eos % (Auto) 0.7 (0-4.4) % Baso % (Auto) 0.5 (0.2-1.2) % Lymph # (Auto) 2.18 (0.9-3.2) K/mm3 [place] # (Auto) 0.4 (0.1-0.6) K/mm3 Eos # (Auto) 0.0 (0-0.3) K/mm3 Baso # (Auto) 0.0 (0.0-0.1) K/mm3 Abs Immat Gran (auto) 0.00 (0.00-0.031) K/mm3 Absolute Neuts (auto) 3.4 (1.3-6.7) K/mm3 Absolute Nucleated RBC 0.000 (0.0-0.012) K/mm3 Nucleated RBC % 0.0 (0.0-0.2) % Sodium 135 L (137-145) mmol/L Potassium 3.9 (3.4-5.0) mmol/L Chloride 106 (98-107) mmol/L Carbon Dioxide 22 (22-30) mmol/L Anion Gap 7 (4-12) mmol/L BUN 6 L D (7-17) mg/dL Creatinine 0.50 L (0.7-1.0) mg/dL Estim Creat Clear Calc 156 ml/min Estimated GFR > 60 (59 - ) Glucose 94 (65-110) mg/dL Calcium 9.1 (8.4-10.2) mg/dL Total Bilirubin 0.6 (0.2-1.3) mg/dL AST 31 (14-36) U/L ALT 20 (6-35) U/L Alkaline Phosphatase 67 (38-126) U/L NT-Pro-B Natriuret Pep < 20 (19.9-100) pg/mL Total Protein 7.4 (6.3-8.2) g/dL Albumin 4.0 (3.5-5.1) g/dL Discharge Plan Discharge Clinical Impression: Lower extremity edema Patient Disposition: Home Condition: Stable Instructions: Leg Edema (ED) Additional Instructions: Your labs today look reassuring, your ultrasound does not show a blood clot in your right leg. Please follow up with your OBGYN; you can always return for any further issues. You can take Tylenol for pain as needed. Patient Language: Citizen Of [place] Prescriptions: No Action amoxicillin 500 mg capsule 500 mg PO BID 10 Days Qty: 20 0RF ferrous fumarate [Ferrocite] 324 mg (106 mg iron) tablet 324 mg PO AC albuterol sulfate 90 mcg/actuation HFA aerosol inhaler 2 puff inhalation QID PRN (Reason: shortness of breath or wheezing) Qty: 6.7 0RF budesonide-formoterol 160-4.5 mcg/actuation HFA aerosol inhaler 1 puff inhalation ONCE Qty: 10.2 0RF famotidine 20 mg tablet 20 mg PO DAILY Qty: 14 0RF Follow-up/Referrals: Benigno,Chely Cortez MD [Primary Care Provider] -
[2025-01-17 12:55] LABS: Hematocrit 37.8 % (37.0-47.0); Hemoglobin 11.7 g/dL (12.0-15.0); Immature Granulocyte Percent A 0.0 % (0-0.5); Lymphocytes Absolute Auto 2.18 K/mm3 (0.9-3.2); Mean Corpuscular HGB Conc 31.0 g/dl (32-36); Mean Corpuscular Hemoglobin 25.5 pg (26-34); Mean Corpuscular Volume 82.4 fl (80-100); Nucleated Red Blood Cells Absolute Auto 0.000 K/mm3 (0.0-0.012); Nucleated Red Blood Cells Perc 0.0 % (0.0-0.2); Platelet Count Result 355 k/mm3 (150-375); Red Blood Count 4.59 M/mm3 (4.2-5.4); White Blood Count 6.1 K/mm3 (4.5-10.0)
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
--- OUTSIDE RECORDS SUMMARY | 2025-01-17 12:59 | XMS_ITS | Referral Summary ---
Author Organization [facility] at the Medical Office Building Address [address] [place] [phone] Care Team Providers Care Religious Education Coordinator Name Role Phone Chely Pelaez MD Primary Care Provider Encounters Date Type Department Care Team Description 01/15/2025 Orders Only [facility] Obstetrical Gynecology [address] [place] [phone] Jos Donovan MD 01/15/2025 Results Follow-Up [facility] Obstetrical Gynecology [address] [place] [phone] Jos Donovan MD hCG, blood, quantitative, hCG, blood, quantitative, Progesterone 01/12/2025 6:40 AM CDT Lab [facility] [address] [place] [phone] Positive test 01/10/2025 1:25 PM CDT Lab [facility] [address] [place] [phone] Positive test 01/10/2025 Telephone [facility] Obstetrical Gynecology [address] [place] [phone] Jos Donovan MD 10/30/2024 Results Follow-Up [facility] Primary Care [address] [place] [phone] Chely Pelaez MD CBC with auto differential, Comprehensive metabolic panel, Lipid panel, Additional followed-up results: 7 10/29/2024 12:10 PM CDT Lab [facility] [address] [place] [address] Routine general medical examination at a health care facility; Anemia, unspecified type; Controlled type 2 diabetes mellitus without complication, without long-term current use of insulin (HCC) 10/29/2024 11:15 AM CDT Office Visit [facility] Care [address] [place] [phone] Chely Pelaez MD Controlled type 2 diabetes [...] 05/08/2020 Assessment & Plan (05/08/2020 10:19 AM ANTHROPOLOGY PROFESSOR): Prediabetic. Need Aggressive 25lb weight loss. Recommended aggressive Lifestyle modification and weight loss for improving overall weight related health conditions. Follow up in 1 or 3 months for continuing Lifestyle Medicine education and management visit. Pain in both hands 07/30/2019 Assessment & Plan (07/30/2019 10:27 AM ANTHROPOLOGY PROFESSOR): Overall Condition: New Diagnosis and Needs more diagnostic info. Treatment: Lab: Rheumatoid Panel. may consider Drier Tender Naphthalene in the future. Follow up PRN Encounter [...] months Assessment & Plan (05/08/2020 10:18 AM ANTHROPOLOGY PROFESSOR): Overall Condition Chronic Condition: Uncontrolled. Treatment: New Medication: Start Phentermine Follow up in 1 month Assessment & Plan (07/24/2019 4:00 PM ANTHROPOLOGY PROFESSOR): Recommended aggressive Lifestyle modification and weight loss for improving overall weight related health conditions. Follow up in 1 or 3 months for continuing Lifestyle Medicine education and management visit. Irritable bowel syndrome wit h both constipation and diarrhea 07/24/2019 Assessment & Plan (07/30/2019 10:26 AM ANTHROPOLOGY PROFESSOR): Overall Condition New Diagnosis. Treatment: New Medication: Start on PPI (Omeprazole) 40mg. Follow up in 6 months Chronic low back pain 07/24/2019 Assessment & Plan (07/30/2019 10:25 AM ANTHROPOLOGY PROFESSOR): Overall Condition Chronic Condition: Uncontrolled and Acute [...] on file Legal Sex Female 3:12 PM ANTHROPOLOGY PROFESSOR Gender Identity Female 09/18/2021 12:58 PM CDT [...] DETECTION WITH GENOTYPING Routine 08/14/2024 1:34 PM ANTHROPOLOGY PROFESSOR Cervical cancer screening from Last 3 Months [...] last revised on 2023 Testing performed by: [facility], [address] [place] [address], [place]., [address] Blood 01/12/2025 6:53 AM CDT 01/12/2025 7:19 AM CDT Jos Donovan MD LAB BLOOD ORDERABLES Fin al Result Performing Organization Address [facility] de Phone Number [address] [place] [address] * (ABNORMAL) Progesterone (01/10/2025 1:38 PM CDT) [...] ORDERABLES Fin al Result Performing Organization Address [facility] de Phone Number [address] [place] [address] * (ABNORMAL) hCG, blood, quantitative (01/10/2025 1:38 PM CDT) Pathologist [facility] hCG, quant 35.6(H) 0.0 - 5.0 IUnits/L Comment: Interpretive Data Male: < 5 IU/L Non- premenopausal Female: <5 IU/L The [employer] hCG Beta Quant assay procedure was used. Results from different manufacturers or methods may not be comparable. Serial testing should be performed using the same method. Interpretive Data was last revised on 2023 Testing performed by: [address] [address] Blood 01/10/2025 1:38 PM CDT 01/10/2025 2:07 PM CDT us Jos Donovan MD LAB BLOOD ORDERABLES Jaime andrea Result - Final Performing Organization Address [facility] Co de Phone Number KAVON [address] [place] [address] * eGFR (10/29/2024 12:18 PM CDT) eGFR [...] was last reviewed 2021. Testing performed by: [facility], [address] [place] [address]., [address] Blood 10/29/2024 12:1 8 PM CDT 10/29/2024 12:22 PM CDT us Chely Pelaez MD LAB BLOOD ORD ERABLES Final Result Performing Organization Address City/[facility]/ZIP Co de Phone Number K[facility]ON [facility] [place] [address] * Differential, auto (10/29/2024 12:18 PM CDT) Neutrophil abs 2.06 1.50 - 6.50 K/cumm Comment:Testing performed by : [address] [address] Imm gran abs 0.01 0.00 - 0.10 K/cumm KAVON Comment:Testing performed by : [address] [address] Lymphocyte abs 1.99 0.80 - 3.30 K/cumm [facility] Comment:Testing performed by : [address] [address] Monocyte abs 0.37 0.20 - 0.80 K/cumm [facility] Comment:Testing performed by : [address] [address] Eosinophil abs 0.06 0.00 - 0.50 K/cumm [facility] Comment:Testing performed by : [address] [address] Basophil abs 0.02 0.00 - 0.10 K/cumm [facility] Comment:Testing performed by : [address] [address] Neutrophil pct 45.8 % [facility] Comment: Interpretive Data Percent cell count reference ranges are not reported, since discordance with absolute values may lead to misinterpretation of CBC data. Current Interpretive Data was last revised on 2017. Testing performed by: [address] [address] Imm gran pct 0.2 % [facility] Comment: Interpretive Data Percent cell count reference ranges are not reported, since discordance with absolute values may lead to misinterpretation of CBC data. Current Interpretive Data was last revised on 2017. Testing performed by: [address] [address] Lymphocyte pct 44.1 % [facility] Comment: Interpretive Data Percent cell count reference ranges are not reported, since discordance with absolute values may lead to misinterpretation of CBC data. Current Interpretive Data was last revised on 2017. Testing performed by: [address] [address] Monocyte pct 8.2 % KAVON Comment: Interpretive Data Percent cell count reference ranges are not reported, since discordance with absolute values may lead to misinterpretation of CBC data. Current Interpretive Data was last revised on 2017. Testing performed by: [address] [address] Eosinophil pct 1.3 % [facility]ON Comment: Interpretive Data Percent cell count reference ranges are not reported, since discordance with absolute values may lead to misinterpretation of CBC data. Current Interpretive Data was last revised on 2017. Testing performed by: [address] [address] Basophil pct 0.4 % K[facility]ON Comment: Interpretive Data Percent cell count reference ranges are not reported, since discordance with absolute values may lead to misinterpretation of CBC data. Current Interpretive Data was last revised on 2017. Testing performed by: [address] [address] Blood 10/29/2024 12:1 8 PM CDT 10/29/2024 12:22 PM CDT us Chely Pelaez MD LAB BLOOD ORD ERABLES Final Result [facility] [address] [facility] [place] [address] * Iron profile w/ IBC (10/29/2024 12:18 PM CDT) Iron 76 35 - 145 mcg/dL Comment:Testing performed by : [address] [address] TIBC 360 250 - 400 mcg/dL [facility]LE Comment:Testing performed by : [address] [address] Transferrin saturation 21 20 - 50 % KAVON Comment:Testing performed by : [address] [address] Blood 10/29/2024 12:1 8 PM CDT 10/29/2024 12:22 PM CDT us Chely Pelaez MD LAB BLOOD ORD ERABLES Final Result K[facility]ON [address] [facility] Department [place] [address] * (ABNORMAL) CBC with auto differential (10/29/2024 12:18 PM CDT) Pathologist [facility] WBC 4.51 3.80 - 9.90 K/cumm Comment:Testing performed by : [address] [address] Hgb 10.6(L) 11.9 - 15.5 g/dL KAVON Comment:Testing performed by : [address] [address] Hct 34.4(L) 35.6 - 45.5 % KAVON Comment:Testing performed by : [address] [address] Plt 346 150 - 400 K/cumm KAVON Comment:Testing performed by : [address] [address] MPV 11.2 9.1 - 12.3 fL KAVON Comment:Testing performed by : [address] [address] RBC 4.38 3.90 - 5.20 M/cumm KAVON Comment:Testing performed by : [address] [address] MCV 78.5(L) 81.3 - 96.4 fL KAVON Comment:Testing performed by : [address] [address] MCH 24.2(L) 27.1 - 33.3 pg KAVON Comment:Testing performed by : [address] [address] MCHC 30.8(L) 32.3 - 35.7 g/dL KAVON Comment:Testing performed by : [address] [address] RDW CV 15.6(H) 11.1 - 14.9 % [facility] Comment:Testing performed by : [address] [address] RDW SD 44.7 35.7 - 48.1 fL [facility] Comment:Testing performed by : [address] [address] NRBC abs 0.00 0.00 - 0.01 K/cumm [facility] Comment:Testing performed by : [address] [address] Blood 10/29/2024 12:1 8 PM CDT 10/29/2024 12:22 PM CDT us Chely Pelaez MD LAB BLOOD ORD ERABLES Final Result [facility] [address] [facility] Department [place] [address] * Albumin Creatinine Ratio, Urine (10/29/2024 12:18 PM CDT) Albumin Ur <12.0 mg/L Comment: Interpretive Data No reference range established. Current interpretive data was last revised 2018. Testing performed by: [address] [address] Creatinine Ur 158.5 mg/dL [facility] Comment: Interpretive Data No reference range established. Current interpretive data was last revised 2018. Testing performed by: [address] [address] Albumin Creatinine Ratio, Ur <8 1 - 29 mg/g [facility] Comment:Testing performed by : [address] [address] Urine 10/29/2024 12:1 8 PM CDT 10/29/2024 12:34 PM CDT us Chely Pelaez MD LAB URINE ORD ERABLES Final Result Performing Organization Address City/[facility]/ZIP Co de Phone Number KAVON [address] [address] * (ABNORMAL) Hemoglobin A1c (10/29/2024 12:18 PM CDT) Hgb A1C 6.3(H) 4.0 - 5.6 % Comment:Testing performed by : [address] [address] Estimated Average Glucose 134 mg/dL KAVON Comment: The ADA recommends reporting an estimated Average Glucose (eAG) with all Hemoglobin A1c results using the equation derived from a study of 507 normal and diabetic adults. Minority populations were underrepresented and children were not included. (Diabetes Care 31:8875-6445, 2008). The eAG is not equivalent to a fasting glucose. Testing performed by: [address] [address] Blood 10/29/2024 12:1 8 PM CDT 10/29/2024 12:22 PM CDT us Chely Pelaez MD LAB BLOOD ORD ERABLES Final Result Performing Organization Address [facility] Co de Phone Number DARCI[address] [address] * (ABNORMAL) Ferritin (10/29/2024 12:18 PM CDT) Ferritin 12(L) 15 - 150 ng/mL Comment:Testing performed by : [address] [address] Blood 10/29/2024 12:1 8 PM CDT 10/29/2024 12:22 PM CDT Chely Pelaez MD LAB BLOOD ORD ERABLES Final Result Performing Organization Address City/[facility]/ZIP Co de Phone Number [place] [phone] [place] [address] * Vitamin B12 (10/29/2024 12:18 PM CDT) Vitamin B12 659 230 - 1,250 pg/mL Comment:Testing performed by : [facility], [address] [place] [address]., [address] Blood 10/29/2024 12:1 8 PM CDT 10/29/2024 12:22 PM CDT us Chely Pelaez MD LAB BLOOD ORD ERABLES Final Result [facility] [address] [facility] Department [place] [address] * Lipid panel (10/29/2024 12:18 [...] last revised on 2018. Testing performed by: [facility], [address] [place] [address]., [address] Triglycerides 50 <=149 mg/dL KAVON Comment: Interpretive [...] last revised on 2018. Testing performed by: [address] [address] HDL 64 >=40 mg/dL KAVON Comment: Interpretive [...] last revised on 2018. Testing performed by: [address] [address] LDL, calculated 106 <=129 mg/dL KAVON Comment: [...] last revised on 2024. Testing performed by: [address] [address] Non-HDL Cholesterol 116 mg/dL KAVON Comment: Interpretive [...] last revised on 2018. Testing performed by: [address] [address] Chol/HDL ratio 3 CERNER Comment:Testing performed by : [address] [address] Blood 10/29/2024 12:1 8 PM CDT 10/29/2024 12:22 PM CDT Chely Pelaez MD LAB BLOOD ORD ERABLES Final Result [facility] [address] [facility] Department [place] [address] * (ABNORMAL) Comprehensive metabolic panel (10/29/2024 12:18 PM CDT) Sodium 138 135 - 145 mmol/L Comment:Testing performed by : [address] [address] Potassium, pl 4.1 3.3 - 4.9 mmol/L KAVON Comment:Testing performed by : [address] [address] Chloride 106 97 - 110 mmol/L KAVON Comment:Testing performed by : [address] [address] CO2 23 22 - 32 mmol/L KAVON Comment:Testing performed by : [address] [address] Anion gap 9 2 - 15 mmol/L KAVON Comment:Testing performed by : [address] [address] BUN 10 6 - 25 mg/dL KAVON Comment:Testing performed by : [address] [address] Creatinine 0.50(L) 0.60 - 1.10 mg/dL KAVON Comment:Testing performed by : [address] [address] Glucose 104 70 - 199 mg/dL KAVON [...] was last revised 2022. Testing performed by: [address] [address] Calcium 9.2 8.5 - 10.3 mg/dL KAVON Comment:Testing performed by : [address] [address] Bilirubin, total 0.2 0.1 - 1.2 mg/dL KAVON Comment:Testing performed by : [address] [address] Protein, pl 7.1 6.5 - 8.5 g/dL KAVON Comment:Testing performed by : [address] [address] Albumin 3.9 3.5 - 5.0 g/dL KAVON Comment:Testing performed by : [address] [address] Alk phos 76 40 - 130 Units/L KAVON Comment:Testing performed by : [address] [address] ALT 18 7 - 45 Units/L KAVON Comment:Testing performed by : [address] [address] AST 15 10 - 45 Units/L KAVON Comment:Testing performed by : [address] [address] Blood 10/29/2024 12:1 8 PM CDT 10/29/2024 12:22 PM CDT us Chely Pelaez MD LAB BLOOD ORD ERABLES Final Result [facility] [address] [facility] [place] [address] * High Risk HPV DNA Detection with Genotyping (Molecular component) (08/14/2024 1:34 PM ANTHROPOLOGY PROFESSOR) HPV HR 16 Not Detected Not Detected [facility] Comment:Testing performed by : [facility], [address] [place]., [address] HPV HR 18 Not Detected Not Detected [facility]LE Comment:Testing performed by : [facility], [address] [place]., [address] HPV HR Non 16/18 Not Detected Not [...] this test have been verified by the [facility] Molecular Infectious Disease laboratory. Correlate with separately reported cytology results, as applicable. Interpretive data last revised 22 Testing performed by: [facility], [address] [place]., [address] Endocervical 08/14/2024 1:34 PM ANTHROPOLOGY PROFESSOR 08/15/2024 9:24 AM ANTHROPOLOGY PROFESSOR Narrative KAVON - 08/16/2024 2:49 AM ANTHROPOLOGY PROFESSOR Clinical history and diagnosis->routine Number of vials->1 Testing type->Screening Last menstrual period (date if known)->07/31/2024 Jos Donovan MD LAB BODY FLUIDS AND STOO LS ORDERABLES Final Result [facility] [address] [facility] Department of Laboratories [place] [phone] BJ from Last 3 Months or Most Recently Relevant to Health Maintenance Insurance [facility] CHOICE PLUS [facility] HMO/PPO Address: [address] [address] [place] [address] IDPA BLUE ACCESS OOS Member Subscriber Plan / Payer (Ef fective 2024-Present) Name:Lida Brookscaio Lanza Member ID:[id number] Relation to Subscriber:Spouse Name:Nimesh Brooks Subscriber ID:[id number] Date of :1987 (Home) Address: [address] [place] [address] [address] [place] [address] Payer ID:[id number] (NAIC) Type:BC ALLIANCE Address: [address] [place] [id number] Care Teams Religious Education Coordinator Relationship Specialty Start Date End Date Chely Pelaez MD PCP - General Internal Medicine 09/23/21
--- OUTSIDE RECORDS SUMMARY | 2025-01-17 12:59 | XMS_ITS | Encounter Summary ---
Author Organization [facility] Address [address] [place] [address] Care Team Providers Care Lathe Set Up Operator Name Role Phone Chely Pelaez MD Primary Care Provider Encounter Details Date Type Department Care Team (Latest Contact Info) Description 01/15/2025 Results Follow-Up [facility] Obstetrical Gynecology [address] [phone] Jos Donovan MD [address] [place] [phone] hCG, blood, quantitative, hCG, blood, quantitative, [...] on file Legal Sex Female 3:12 PM DECORATING MACHINE OPERATOR Gender Identity Female 09/18/2021 12:58 PM CDT Sexual Orientation Straight 09/18/2021 12 :58 PM CDT documented as of this encounter Plan of Treatment Not on file documented as of this encounter Visit Diagnoses Not on filedocumented in this encounter Care Teams Lathe Set Up Operator Relationship Specialty Start Date End Date Chely Pelaez MD PCP - General Internal Medicine 09/23/21 documented as of this encounter
--- OUTSIDE RECORDS SUMMARY | 2025-01-17 12:59 | XMS_ITS | Clinical Summary ---
Author Organization [facility] Address [address] [place] [address] Care Team Providers Care Wire Transfer Clerk Name Role Phone Chase Stringer MD Primary Care Provider [phone] Source Comments [facility] Affiliates and Associated Physician Practices is amultiple site organization consisting of ambulatory clinics and hospital sitesin [place], [place], [place] and [place]. This disclosure is being madepursuant to the Care Everywhere program and may not contain all information available regarding this patient. Last updated 18.[facility] Allergies Active Allergy Reactions Criticality Noted Date [...] Office Visit [facility] [address] [place] [phone] Unknown, Provider Morbid obesity (HCC) (Primary Dx); Chronic constipation 11/19/2024 Telephone [facility] [address] [place] [phone] Blanche Bills PA-C Medication Prior Auth Request [...] PM CDT Legal Sex Female 6:32 AM NAIL SETTER Gender Identity Female 12/23/2022 1:23 PM CDT Sexual Orientation Straight 12/23/2022 1: 23 PM CDT Last Filed Vital Signs Vital Sign Reading Time Taken Comments Blood Pressure 134/80 08/13/2024 1:05 PM NAIL SETTER Pulse 76 08/13/2024 1:05 PM NAIL SETTER Temperature 36.3 C (97.4 F) 08/13/2024 1:05 PM NAIL SETTER Respiratory Rate 16 03/21/2017 6:16 PM CDT Oxygen Saturation 100% 08/13/2024 1:05 PM NAIL SETTER Inhaled Oxygen Concentration - - Weight 117.9 kg (260 lb) 08/13/2024 1:05 PM NAIL SETTER Height 154.9 cm (5' 1) 08/13/2024 1:05 PM NAIL SETTER Body Mass Index 49.13 08/13/2024 1:05 PM NAIL SETTER Plan of Treatment Upcoming Encounters Date Type Department Care Team (Late st Contact Info) Description 02/06/2025 2:30 PM CDT Office Visit [facility] - [address] [phone] Glen Bernal III, MD [address] [place] [phone] 03/04/2025 2:00 PM CDT Office Visit [facility] - [address] [phone] Health Maintenance Due Date Last [...] complete this topic Insurance MEDICAID - [place] [facility] Address: [address] [place] [address] [facility] Address: [address] [address] [place] [address] Care Teams Wire Transfer Clerk Relationship Specialty Start Date End Date Chase Stringer MD [address] [facility] [address] [place] [address] PCP - General Family Medicine 09/01/16
--- OUTSIDE RECORDS SUMMARY | 2025-01-17 12:59 | XMS_ITS | Clinical Summary ---
Author Organization [facility] Address [address] [place] [phone] Care Team Providers Care Digital Forensic Examiner Name Role Phone Chely Pelaez MD Primary [...] 05/08/2020 Assessment & Plan (05/08/2020 10:19 AM TOMB MAKER HELPER): Prediabetic. Need Aggressive 25lb weight loss. Recommended aggressive Lifestyle modification and weight loss for improving overall weight related health conditions. Follow up in 1 or 3 months for continuing Lifestyle Medicine education and management visit. Pain in both hands 07/30/2019 Assessment & Plan (07/30/2019 10:27 AM TOMB MAKER HELPER): Overall Condition: New Diagnosis and Needs more diagnostic info. Treatment: Lab: Rheumatoid Panel. may consider Fourdrinier Machine Operator in the future. Follow up PRN Encounter [...] months Assessment & Plan (05/08/2020 10:18 AM TOMB MAKER HELPER): Overall Condition Chronic Condition: Uncontrolled. Treatment: New Medication: Start Phentermine Follow up in 1 month Assessment & Plan (07/24/2019 4:00 PM TOMB MAKER HELPER): Recommended aggressive Lifestyle modification and weight loss for improving overall weight related health conditions. Follow up in 1 or 3 months for continuing Lifestyle Medicine education and management visit. Irritable bowel syndrome wit h both constipation and diarrhea 07/24/2019 Assessment & Plan (07/30/2019 10:26 AM TOMB MAKER HELPER): Overall Condition New Diagnosis. Treatment: New Medication: Start on PPI (Omeprazole) 40mg. Follow up in 6 months Chronic low back pain 07/24/2019 Assessment & Plan (07/30/2019 10:25 AM TOMB MAKER HELPER): Overall Condition Chronic Condition: Uncontrolled and Acute Flare on Chronic pain. . Treatment: New Medication: Naproxen/Flexeril for two weeks for flare up. Follow up PRN Encounters Date Type Department Care Team Description 01/15/2025 Orders Only [facility] Medical [facility] Obstetrical Gynecology [address] [place] [phone] Jos Donovan MD 01/15/2025 Results Follow-Up [facility] Obstetrical Gynecology [address] [place] [phone] Jos Donovan MD hCG, blood, quantitative, hCG, blood, quantitative, Progesterone 01/12/2025 6:[address] [facility] Lab [facility] [place] [address] Positive test 01/10/2025 1:[address] [facility] [address] [place] [address] Positive test 01/10/2025 Telephone [facility] Obstetrical Gynecology [address] [place] [address] [phone] Jos Donovan MD 10/30/2024 Results Follow-Up [facility] [address] [place] [phone] Chely Pelaez MD CBC with auto differential, Comprehensive metabolic panel, Lipid panel, Additional followed-up results: 7 10/29/2024 12:[address] [facility] [address] [place] [id number] Routine general medical examination at a health care facility; Anemia, unspecified type; Controlled type 2 diabetes mellitus without complication, without long-term current use of insulin (HCC) 10/29/2024 11:15 AM CDT Office Visit [facility] [address] [place] [phone] Chely Pelaez MD Controlled type 2 [...] on file Legal Sex Female 3:12 PM TOMB MAKER HELPER Gender Identity Female 09/18/2021 12:58 PM CDT [...] DETECTION WITH GENOTYPING Routine 08/14/2024 1:34 PM TOMB MAKER HELPER Cervical cancer screening from Last 3 Months [...] on 2023 Testing performed by: [facility], [address] [place] [address]., [id number] Blood 01/12/2025 6:53 AM CDT 01/12/2025 7:19 AM CDT Jos Donovan MD LAB BLOOD ORDERABLES Fin al Result Performing Organization Address [facility] de Phone Number [facility] [employer] [facility] [place] [place] [address] * (ABNORMAL) Progesterone (01/10/2025 1:38 [...] ORDERABLES Fin al Result Performing Organization Address [facility] Co de Phone Number [place] [phone] [facility] [place] [address] * (ABNORMAL) hCG, blood, quantitative (01/10/2025 1:38 [...] on 2023 Testing performed by: [facility], [address] [place] [address]., [id number] Blood 01/10/2025 1:38 PM CDT 01/10/2025 2:07 PM CDT us Jos Donovan MD LAB BLOOD ORDERABLES Jaime andrea Result - Final [facility] [address] [facility] Department [place] [address] * eGFR (10/29/2024 12:18 PM [...] was last reviewed 2021. Testing performed by: [address] [address] Blood 10/29/2024 12:1 8 PM CDT 10/29/2024 12:22 PM CDT Chely Pelaez MD LAB BLOOD ORD ERABLES Final Result [facility] [address] [facility] Department [place] [address] * Differential, auto (10/29/2024 12:18 PM CDT) Neutrophil abs 2.06 1.50 - 6.50 K/cumm Comment:Testing performed by : [address] [address] Imm gran abs 0.01 0.00 - 0.10 K/cumm K[facility]ON Comment:Testing performed by : [address] [address] Lymphocyte abs 1.99 0.80 - 3.30 K/cumm KAVON Comment:Testing performed by : [address] [address] Monocyte abs 0.37 0.20 - 0.80 K/cumm KAVON Comment:Testing performed by : [address] [address] Eosinophil abs 0.06 0.00 - 0.50 K/cumm KAVON Comment:Testing performed by : [address] [address] Basophil abs 0.02 0.00 - 0.10 K/cumm KAVON Comment:Testing performed by : [address] [address] Neutrophil pct 45.8 % K[facility]ON Comment: Interpretive Data Percent cell count reference ranges are not reported, since discordance with absolute values may lead to misinterpretation of CBC data. Current Interpretive Data was last revised on 2017. Testing performed by: [address] [address] Imm gran pct 0.2 % KAVON Comment: Interpretive Data Percent cell count reference ranges are not reported, since discordance with absolute values may lead to misinterpretation of CBC data. Current Interpretive Data was last revised on 2017. Testing performed by: [address] [address] Lymphocyte pct 44.1 % [facility] [place] Comment: Interpretive Data Percent cell count reference ranges are not reported, since discordance with absolute values may lead to misinterpretation of CBC data. Current Interpretive Data was last revised on 2017. Testing performed by: [address] [address] Monocyte pct 8.2 % [facility] [place] Comment: Interpretive Data Percent cell count reference ranges are not reported, since discordance with absolute values may lead to misinterpretation of CBC data. Current Interpretive Data was last revised on 2017. Testing performed by: [address] [address] Eosinophil pct 1.3 % [facility] Comment: Interpretive Data Percent cell count reference ranges are not reported, since discordance with absolute values may lead to misinterpretation of CBC data. Current Interpretive Data was last revised on 2017. Testing performed by: [address] [address] Basophil pct 0.4 % [facility] Comment: Interpretive Data Percent cell count reference ranges are not reported, since discordance with absolute values may lead to misinterpretation of CBC data. Current Interpretive Data was last revised on 2017. Testing performed by: [address] [address] Blood 10/29/2024 12:1 8 PM CDT 10/29/2024 12:22 PM CDT us Chely Pelaez MD LAB BLOOD ORD ERABLES Final Result [facility] [address] [facility] Department [place] [address] * Iron profile w/ IBC (10/29/2024 12:18 PM CDT) Iron 76 35 - 145 mcg/dL Comment:Testing performed by : [address] [address] TIBC 360 250 - 400 mcg/dL [facility] Comment:Testing performed by : [address] [address] Transferrin saturation 21 20 - 50 % [facility] Comment:Testing performed by : [address] [address] Blood 10/29/2024 12:1 8 PM CDT 10/29/2024 12:22 PM CDT us Chely Pelaez MD LAB BLOOD ORD ERABLES Final Result [facility] Department [place] [address] * (ABNORMAL) CBC with auto differential (10/29/2024 12:18 PM CDT) Pathologist [facility] WBC 4.51 3.80 - 9.90 K/cumm Comment:Testing performed by : [address] [address] Hgb 10.6(L) 11.9 - 15.5 g/dL [facility] Comment:Testing performed by : [address] [address] Hct 34.4(L) 35.6 - 45.5 % [facility] Comment:Testing performed by : [address] [address] Plt 346 150 - 400 K/cumm [facility] Comment:Testing performed by : [address] [address] MPV 11.2 9.1 - 12.3 fL [facility] Comment:Testing performed by : [address] [address] RBC 4.38 3.90 - 5.20 M/cumm [facility] Comment:Testing performed by : [address] [address] MCV 78.5(L) 81.3 - 96.4 fL [facility] Comment:Testing performed by : [address] [address] MCH 24.2(L) 27.1 - 33.3 pg [facility] Comment:Testing performed by : [address] [address] MCHC 30.8(L) 32.3 - 35.7 g/dL [facility] Comment:Testing performed by : [address] [address] RDW CV 15.6(H) 11.1 - 14.9 % [facility] Comment:Testing performed by : [address] [address] RDW SD 44.7 35.7 - 48.1 fL [facility] Comment:Testing performed by : [address] [address] NRBC abs 0.00 0.00 - 0.01 K/cumm [facility] Comment:Testing performed by : [address] [address] Blood 10/29/2024 12:1 8 PM CDT 10/29/2024 12:22 PM CDT us Chely Pelaez MD LAB BLOOD ORD ERABLES Final Result [facility] [address] [facility] Department [place] [address] * Albumin Creatinine Ratio, Urine (10/29/2024 12:18 PM CDT) Albumin Ur <12.0 mg/L Comment: Interpretive Data No reference range established. Current interpretive data was last revised 2018. Testing performed by: [address] [address] Creatinine Ur 158.5 mg/dL [facility] Comment: Interpretive Data No reference range established. Current interpretive data was last revised 2018. Testing performed by: [address], [address] Albumin Creatinine Ratio, Ur <8 1 - 29 mg/g [facility]ON Comment:Testing performed by : [address] [address] Urine 10/29/2024 12:1 8 PM CDT 10/29/2024 12:34 PM CDT Chely Pelaez MD LAB URINE ORD ERABLES Final Result Performing Organization Address City/[facility] Co de Phone Number K[facility]ON [address] [employer] [place] [address] * (ABNORMAL) Hemoglobin A1c (10/29/2024 12:18 PM CDT) Pathologist [facility] Hgb A1C 6.3(H) 4.0 - 5.6 % Comment:Testing performed by : [address] [address] Estimated Average Glucose 134 mg/dL KAVON Comment: The ADA recommends reporting an estimated Average Glucose (eAG) with all Hemoglobin A1c results using the equation derived from a study of 507 normal and diabetic adults. Minority populations were underrepresented and children were not included. (Diabetes Care 31:0715-7538, 2008). The eAG is not equivalent to a fasting glucose. Testing performed by: [address] [address] Blood 10/29/2024 12:1 8 PM CDT 10/29/2024 12:22 PM CDT Chely Pelaez MD LAB BLOOD ORD ERABLES Final Result Performing Organization Address [facility] Co de Phone Number [id number] [employer] [place] [address] * (ABNORMAL) Ferritin (10/29/2024 12:18 PM CDT) Pathologist [facility] Ferritin 12(L) 15 - 150 ng/mL Comment:Testing performed by : [address] [address] Blood 10/29/2024 12:1 8 PM CDT 10/29/2024 12:22 PM CDT Chely Pelaez MD LAB BLOOD ORD ERABLES Final Result Performing Organization Address City/State/[facility] Co de Phone Number [address] [address] * Vitamin B12 (10/29/2024 12:18 PM CDT) Vitamin B12 659 230 - 1,250 pg/mL Comment:Testing performed by : [address] [address] Blood 10/29/2024 12:1 8 PM CDT 10/29/2024 12:22 PM CDT Chely Pelaez MD LAB BLOOD ORD ERABLES Final Result Performing Organization Address City/[facility] Co de Phone Number [address] [address] * Lipid panel (10/29/2024 12:18 PM CDT) [...] last revised on 2018. Testing performed by: [address] [address] Triglycerides 50 <=149 mg/dL [facility] Comment: Interpretive Data Ages < or = [...] last revised on 2018. Testing performed by: [address] [address] HDL 64 >=40 mg/dL KAVON Comment: Interpretive [...] last revised on 2018. Testing performed by: [address] [address] LDL, calculated 106 <=129 mg/dL KAVON Comment: [...] last revised on 2024. Testing performed by: [address] [address] Non-HDL Cholesterol 116 mg/dL [facility] Comment: [...] last revised on 2018. Testing performed by: [address] [address] Chol/HDL ratio 3 [facility] Comment:Testing performed by : [address] [address] Blood 10/29/2024 12:1 8 PM CDT 10/29/2024 12:22 PM CDT Chely Pelaez MD LAB BLOOD ORD ERABLES Final Result [facility] [address] [facility] Department of Laboratories [place], [place] [id number] * (ABNORMAL) Comprehensive metabolic panel (10/29/2024 12:18 PM CDT) Sodium 138 135 - 145 mmol/L Comment:Testing performed by : [address] [address] Potassium, pl 4.1 3.3 - 4.9 mmol/L [facility] Comment:Testing performed by : [address] [address] Chloride 106 97 - 110 mmol/L [facility] Comment:Testing performed by : [address] [address] CO2 23 22 - 32 mmol/L [facility] Comment:Testing performed by : [address] [address] Anion gap 9 2 - 15 mmol/L KAVON Comment:Testing performed by : [address] [address] BUN 10 6 - 25 mg/dL KAVON Comment:Testing performed by : [address], [place]., [address] Creatinine 0.50(L) 0.60 - 1.10 mg/dL KAVON Comment:Testing performed by : [address] [address] Glucose 104 70 - 199 mg/dL KAVON [...] was last revised 2022. Testing performed by: [address] [address] Calcium 9.2 8.5 - 10.3 mg/dL K[facility]ON Comment:Testing performed by : [address] [address] Bilirubin, total 0.2 0.1 - 1.2 mg/dL K[facility]ON Comment:Testing performed by : [address] [address] Protein, pl 7.1 6.5 - 8.5 g/dL KAVON Comment:Testing performed by : [address] [address] Albumin 3.9 3.5 - 5.0 g/dL KAVON Comment:Testing performed by : [address] [address] Alk phos 76 40 - 130 Units/L [facility]ON Comment:Testing performed by : [address] [address] ALT 18 7 - 45 Units/L [facility] Comment:Testing performed by : [facility], [address] [place] [address]., [address] AST 15 10 - 45 Units/L [facility] Comment:Testing performed by : [facility], [address] [place] [address]., [address] Blood 10/29/2024 12:1 8 PM CDT 10/29/2024 12:22 PM CDT us Chely Pelaez MD LAB BLOOD ORD ERABLES Final Result [facility] [address] [facility] Department [place] [address] * High Risk HPV DNA Detection with Genotyping (Molecular component) (08/14/2024 1:34 PM TOMB MAKER HELPER) HPV HR 16 Not Detected Not Detected [facility] Comment:Testing performed by : [facility], [address] [place]., [address] HPV HR 18 Not Detected Not Detected [facility] Comment:Testing performed by : [facility], [address] [place]., [address] HPV HR Non 16/18 Not Detected Not [...] this test have been verified by the [facility] Molecular Infectious Disease laboratory. Correlate with separately reported cytology results, as applicable. Interpretive data last revised 22 Testing performed by: [facility], [address] [facility], [place]., [address] Endocervical 08/14/2024 1:34 PM TOMB MAKER HELPER 08/15/2024 9:24 AM TOMB MAKER HELPER Narrative [facility] - 08/16/2024 2:49 AM TOMB MAKER HELPER Clinical history and diagnosis->routine Number of vials->1 Testing type->Screening Last menstrual period (date if known)->07/31/2024 Jos Donovan MD LAB BODY FLUIDS AND STOO LS ORDERABLES Final Result [facility] [address] [facility] Department [place] [employer] [place] [address] [facility] from Last 3 Months or Most Recently Relevant to Health Maintenance Insurance [facility] CORE [facility] CHOICE PLUS [facility] HMO/PPO Address: [address] [address] [place] [address] [employer] BL[employer] ACCESS OOS Care Teams Digital Forensic Examiner Relationship Specialty Start Date End Date Chely Pelaez MD PCP - General Internal Medicine 09/23/21
[2025-01-17 13:26] LABS: Alanine Aminotransferase 20 U/L (6-35); Albumin Level 4.0 g/dL (3.5-5.1); Alkaline Phosphatase 67 U/L (38-126); Anion Gap 7 mmol/L (4-12); Aspartate Amino Transferase 31 U/L (14-36); Bilirubin,Total 0.6 mg/dL (0.2-1.3); Blood Urea Nitrogen 6 mg/dL (7-17); Calcium 9.1 mg/dL (8.4-10.2); Carbon Dioxide 22 mmol/L (22-30); Chloride 106 mmol/L (98-107); Estimated CRCL calculation 156 ml/min; Estimated Glomerular Filt Rate > 60; Glucose 94 mg/dL (65-110); Potassium 3.9 mmol/L (3.4-5.0); Sodium 135 mmol/L (137-145); Total Protein 7.4 g/dL (6.3-8.2)
[2025-01-17 13:30] LABS: NT Pro B Type Natriuretic Pept < 20 pg/mL (19.9-100)
[2025-01-17 14:07] VITALS: BP 121/84; PULSE 82; RESP 16; TEMP 36.7; O2SAT 100
== END 2025-01-17 14:09 | disposition home or self-care (01) ==
PROVIDERS: Emergency Provider Emergency Medicine; PCP Internal Medicine
DX: O12.01 Gestational edema, first trimester (principal); O99.511 Diseases of the respiratory system complicating pregnancy, first trimester; J45.909 Unspecified asthma, uncomplicated; O99.011 Anemia complicating pregnancy, first trimester; D64.9 Anemia, unspecified; Z3A.01 Less than 8 weeks gestation of pregnancy
CPT/HCPCS: 36415; 80053; 83880; 85025; 93971; 99284